=== PATIENT | female | born 1950 | race Caucasian/White ===

== ENCOUNTER → 2018-08-02 12:32 | Outpatient (CLI) | payer MEDICARE, OTHER, SELFPAY ==
--- NOTE | 2018-08-02 12:40 | RAD_ITS ---
STUDY: X-RAY CHEST REASON FOR EXAM: Female, 68 years old. Preop exam for knee surgery TECHNIQUE: PA and lateral views of the chest. COMPARISON: None. FINDINGS: The lungs are clear and expanded. There is no demonstrated pleural abnormality. There is borderline cardiomegaly. Normal mediastinum and solomon. Normal visualized pulmonary arteries. Normal visualized aortic arch and descending thoracic aorta. There is a dextroscoliosis of the thoracic spine. There are mild degenerative changes. Normal visualized ribs, clavicles, and shoulders. There is no demonstrated abnormality of the visualized soft tissue structures of the upper abdomen. RAD/Chest PA and Lateral IMPRESSION: Degenerative changes, as described above. No demonstrated acute cardiopulmonary process. Electronically Signed: Abdulkadir James MD at 11:40 EDT , Service support ,
--- NOTE | 2018-08-02 13:16 | EKG12_ITS ---
Test Reason : PRE OP Blood Pressure : / mmHG Vent. Rate : 076 BPM Atrial Rate : 076 BPM P-R Int : 198 ms QRS Dur : 078 ms QT Int : 388 ms P-R-T Axes : 074 012 020 degrees QTc Int : 436 ms Normal sinus rhythm Nonspecific ST abnormality Abnormal ECG Confirmed by FELIX WHITAKER, MARY ([id number]), editor map DEJUAN WRIGHT ([id number]) on 08/03/2018 2:07:02 PM Referred By: Tamica Dent Confirmed By:MARY WASHINGTON MD
== END ==
PROVIDERS: Family Provider Family Medicine; PCP Family Medicine; Visit Provider Physician Assistant
DX: Z01.818 Encounter for other preprocedural examination (principal)
CPT/HCPCS: 71046; 93005

== ENCOUNTER → 2018-09-30 10:34 | Outpatient (CLI) | payer MEDICARE, SELFPAY ==
[2018-09-30 10:56] LABS: Anion Gap 5 (5-15); Chloride 102 mmol/L (98-107); Potassium 3.5 mmol/L (3.5-5.1); Sodium Level 140 mmol/L (136-145)
== END ==
PROVIDERS: Family Provider Family Medicine; PCP Family Medicine; Visit Provider Family Medicine
DX: E87.6 Hypokalemia (principal)
CPT/HCPCS: 80051

== ENCOUNTER 2019-06-29 14:08 | Emergency (ER) | payer MEDICARE, OTHER, SELFPAY ==
[2019-06-29 14:10] VITALS: BP 114/75; PULSE 65; RESP 20; TEMP 36.3; O2SAT 96; BMI 39.6
--- NOTE | 2019-06-29 14:27 | ED.DCSUM_ITS ---
- ER Visit Summary Date of Service: 06/29/19 Chief Complaint: Low blood pressure History of Present Illness: The patient is a 69 F who presents with low blood pressure that began today. Patient checked her blood pressure at home and it was 97/71 with a pulse of 71. Patient states she has been having increasing fatigue and myalgias. Patient states that she gets muscle aches in her calves and arms. Patient admits to some pain and tingling in her right middle and ring fingers and the pain radiates to her right elbow. Patient denies any fevers but admits to subjective chills. Patient states she had an episode of nausea and vomiting. Patient states she has had problems with hypokalemia in the past but is not currently taking any potassium supplements. Physical Examination: Vital signs are stable. Patient is afebrile. Patient is in no acute distress. Oral mucosa is pink and moist. Neck is supple. Trachea is midline. There is no JVD. Heart was regular rate and rhythm. Lungs are clear and equal bilaterally. Abdomen is soft. Bowel sounds are normal. Cranial nerves II through XII are intact. Strength is 5/5 bilateral knee upper and lower extremities. There are no sensory deficits noted. Test Results: EKG showed normal sinus rhythm with a rate of 60. There are no acute ST or T wave changes. CBC was normal. Basic metabolic profile showed a potassium of 2.7. Emergency Department Course and Treatment: Patient was given IV fluids. Patient was given a dose of IV potassium here and a dose of oral potassium. Patient was given a prescription for a short-term course of oral potassium. Patient was instructed to follow-up with her primary care physician in 3 to 5 days. Patient understood and was agreeable with the plan. All questions were answered. Disposition: Discharge home Impression: 1. Hypokalemia This note was generated with [employer] software. It may contain incorrect words, spelling, and punctuation that were not noted in review of the chart prior to signing ED Disposition - Plan for ED Patient: Disposition: Home or Assisted Living Diagnosis: Hypokalemia Instructions: Hypokalemia Prescriptions: Potassium Chloride [K-Dur] 10 meq PO DAILY #5 tab Prescription Printed Referrals: Clint Huizar III, MD [Primary Care Provider] - 3-5 Days
--- NOTE | 2019-06-29 14:30 | EKG12_ITS ---
Test Reason : Blood Pressure : / mmHG Vent. Rate : 060 BPM Atrial Rate : 060 BPM P-R Int : 154 ms QRS Dur : 098 ms QT Int : 474 ms P-R-T Axes : -25 003 011 degrees QTc Int : 474 ms Normal sinus rhythm Low voltage QRS Borderline ECG Confirmed by AMBERLY WHITAKER, HEAVENLY ([id number]), story editor TAM SIDHU ([id number]) on 07/03/2019 1:03:34 PM Referred By: GOPI Confirmed By:MEGAN GAMING MD
--- NOTE | 2019-06-29 14:32 | ED.RN ---
STATES THAT SHE JUST FEELS REALLY TIRED.
[2019-06-29] MEDS: 0.9% Normal Saline 1,000 ML 1000 ML IV (14:49)
[2019-06-29 15:03] LABS: Absolute Neutrophil Count 4.2 X10^3/uL (2.0-7.7); Basophil# 0.03 X10^3/uL; Basophil% 0.5 % (0-1); Eosinophil# 0.39 X10^3/uL; Eosinophils% 6.3 % (0-5); Hemoglobin 14.1 g/dL (12.0-15.0); Lymphocyte % 19.3 % (19-41); Mean Corp Hgb Conc 33.6 g/dL (32-36); Mean Corpuscular Hgb 31.3 pg (27.0-32.0); Mean Corpuscular Volume 93.1 fL (81-99); Mean Platelet Vol. 10.3 fl (6.2-12.0); Monocyte# 0.43 X10^3/uL; Monocyte% 6.9 % (0-10); NRBC Flagged by Analyzer 0 % (0-5); Neutrophil # 4.16 X10^3/uL (2.7-7.7); Neutrophil % 66.8 % (47-70); Platelet Count 264 K/mm3 (150-450); RBC Distribution Width SD 44.4 fl (35.1-43.9); Red Blood Count 4.51 M/mm3 (4.2-5.4); White Blood Count 6.2 K/mm3 (4.4-11.0)
[2019-06-29 15:27] LABS: Anion Gap 7 (5-15); BUN 25 mg/dL (7-18); BUN/Creat Ratio 16.1 RATIO (10-20); Calcium,Total 8.9 mg/dL (8.5-10.1); Chloride 99 mmol/L (98-107); Creatinine, Serum 1.55 mg/dL (0.55-1.02); EST Glomerular Filtration Rate 35 mL/min (>60); Est Glom Filt Rate - Afr Amer 43 mL/min (>60); Estimated Creatinine Clearance 47.26 ml/min; Glucose 106 mg/dL (74-106); Potassium 2.7 mmol/L (3.5-5.1); Sodium Level 137 mmol/L (136-145)
--- NOTE | 2019-06-29 15:39 | ED.RN ---
PT WITH POTASSIUM 2.7. DR. NGUYỄN INFORMED.
[2019-06-29] MEDS: Potassium Chloride 10mEq/100mL 10 MEQ/100 ML IV.SOLN. 100 MEQ IV BOLUS (15:46)
[2019-06-29 16:30] VITALS: BP 137/92; PULSE 59; RESP 12; O2SAT 96
[2019-06-29 17:23] VITALS: BP 107/70; PULSE 55; RESP 16; O2SAT 97
== END 2019-06-29 17:24 | disposition home or self-care (01) ==
PROVIDERS: Emergency Provider Emergency Medicine; Family Provider Family Medicine; PCP Family Medicine
DX: E87.6 Hypokalemia (principal); I10 Essential (primary) hypertension; Z79.899 Other long term (current) drug therapy
CPT/HCPCS: 80048; 84484; 85025; 93005; 96361; 96365; 96366; 99284; J7030; J7050

== ENCOUNTER 2019-07-16 21:35 | Emergency (ER) | payer MEDICARE, OTHER, SELFPAY ==
[2019-07-16 21:36] VITALS: BP 172/83; PULSE 72; RESP 18; TEMP 36.8; O2SAT 95; BMI 42.6
--- NOTE | 2019-07-16 22:06 | ED.VIS.GEN ---
History of Present Illness Chief Complaint: Fall Informant: Patient Narrative: Patient presents with right knee injury. She stated she was walking in her living room and her knee hyperextended. She is having pain with movement of the knee. No previous injury. She does have polio that affects her right lower extremity. She stated that she is never had an injury however. She also stated she had a small bruise to her right proximal thumb. No home treatment. Severity is moderate with movement. No significant pain at rest. Denies any other injury. - Past Medical History (1) Benign essential HTN Status: Chronic Past Medical History - Allergies and Home Meds Allergies/Adverse Reactions: Allergies No Known Allergies Allergy (Verified 06/29/19 14:12) Primary Care Physician: Clint Huizar III, MD [Primary Care Provider] - Prior records reviewed: Yes Past Medical History: - - See problem list, polio Surgical History: appendectomy Lives: With Family Smoking Status: Never smoker Alcohol: None Drugs: None Review of Systems General: Denies: Chills, Fever, Sweats Eyes: Denies: Visual changes - bilaterally, Diplopia ENT: Denies: Rhinorrhea, Sore throat Cardiovascular: Denies: Chest pain, Palpitations Respiratory: Denies: Dyspnea, Cough, Dyspnea on exertion Gastrointestinal: Denies: Abdominal pain, Nausea, Vomiting, Diarrhea, Melena, Hematochezia Genitourinary: Denies: Dysuria, Hematuria, Frequency Musculoskeletal: Reports: Extremity Pain. Denies: Back pain Skin: Denies: Rash, Wounds Neurological: Denies: Headache, Weakness, Numbness Physical Exam Vital Signs/Narrative: Vital Signs Temp Pulse Resp BP Pulse Ox 07/16/19 21:36 98.2 F 72 18 172/83 H 95 General: Well nourished, Well developed, No Acute Distress Head: Normocephalic, Atraumatic Eyes: Perrl, EOMI ENT: Moist mucous membranes, No rhinorrhea Neck: Supple, Nontender Cardiovascular: Regular rate, Regular rhythm, No murmurs Respiratory: No distress, CTA bilaterally, Chest nontender Abdomen: Soft, Nontender, Nondistended, Normal bowel sounds Back: Nontender, Normal Inspection Extremities: No edema, Tenderness, - - Small bruise to the proximal right thumb with no tenderness. Tenderness to the palpation of the knee which appears straight and aligned. Patella is aligned. No swelling. No redness. Decreased range of motion secondary to pain but able to bend it up and bring her leg up and it.. Negative for: Nontender, Edema, Calf Tenderness Skin: Normal color, No rash Neurological: Alert, Oriented x3, Cranial nerves II-XII grossly intact, Normal Strength, Normal Sensation Psychological: Normal affect, Normal Mood Diagnostic/Tx/Re-eval - Medical Decision Making Given ice pack and injection of Toradol IM. X-ray of the right knee obtained. X-ray shows a small effusion without fracture. Patient given Gio wrap and crutches. She will use anti-inflammatories at home and follow-up as an outpatient with Dr. House or her family doctor. She understands she could have a ligament or meniscus injury and that continued pain would perhaps more an outpatient MRI. This was discussed with her. I do not feel she needs an emergent MRI. There is no vascular injury. She will follow-up as an outpatient ED Disposition - Plan for ED Patient: Disposition: Home or Assisted Living Diagnosis: Right knee injury Instructions: KNEE PAIN, Meniscus Injury (Possible) Referrals: Clint Huizar III, MD [Primary Care Provider] -
[2019-07-16] MEDS: Ketorolac 15 MG/ML Vial IM (22:11)
--- NOTE | 2019-07-16 22:20 | RAD_ITS ---
HISTORY: PAIN IN ENTIRE RIGHT KNEE. PAT LOST BALANCE AND FELL FORWARD, INJURED RIGHT KNEE. ADDITIONAL HISTORY: None provided. COMPARISON: None TECHNIQUE: Right knee 3 views Number of images including paperwork: 4 FINDINGS: BONES: No acute fracture. JOINTS: No subluxation. Small right knee joint effusion. Mild to moderate tricompartmental degenerative changes with joint space narrowing and small osteophytes. SOFT TISSUES: No distinct foreign body. RAD/Knee 4 or More Views IMPRESSION: 1. Degenerative changes without acute osseous abnormality. 2. Small right knee joint effusion. at 2236 Reported and signed by: Svetlana Nye MD Electronically Signed: Svetlana Nye MD at 22:36 EDT Tel , Service support ,
== END 2019-07-16 23:13 | disposition home or self-care (01) ==
PROVIDERS: Emergency Provider Emergency Medicine; Family Provider Family Medicine; PCP Family Medicine
DX: S89.91XA Unspecified injury of right lower leg, initial encounter (principal); I10 Essential (primary) hypertension; Z86.12 Personal history of poliomyelitis; Z79.899 Other long term (current) drug therapy; X50.1XXA Overexertion from prolonged static or awkward postures, initial encounter; Y93.01 Activity, walking, marching and hiking; Y92.008 Other place in unspecified non-institutional (private) residence as the place of occurrence of the external cause; Y99.8 Other external cause status
CPT/HCPCS: 73564; 96372; 99285

== ENCOUNTER → 2020-04-05 10:21 | Outpatient (CLI) | payer MEDICARE, OTHER, SELFPAY ==
--- NOTE | 2020-04-05 10:41 | EKG12_ITS ---
Test Reason : PREOP Blood Pressure : / mmHG Vent. Rate : 067 BPM Atrial Rate : 067 BPM P-R Int : 196 ms QRS Dur : 070 ms QT Int : 388 ms P-R-T Axes : 040 -07 014 degrees QTc Int : 409 ms Normal sinus rhythm with sinus arrhythmia Septal infarct , age undetermined Abnormal ECG Confirmed by WASHINGTON WHITAKER, PATIENCE ([id number]), fan mail editor DEJUAN WRIGHT ([id number]) on 04/09/2020 2:39:52 PM Referred By: Dylan Travis Confirmed By:PATIENCE DELAROSA MD
[2020-04-05 10:51] LABS: Hematocrit 44.8 % (37-47); Hemoglobin 14.5 g/dL (12.0-15.0); Mean Corp Hgb Conc 32.4 g/dL (32-36); Mean Corpuscular Hgb 30.3 pg (27.0-32.0); Mean Corpuscular Volume 93.5 fL (81-99); Mean Platelet Vol. 10.2 fl (6.2-12.0); Platelet Count 269 K/mm3 (150-450); RBC Distribution Width CV 12.8 % (11.6-14.6); RBC Distribution Width SD 43.8 fl (35.1-43.9); Red Blood Count 4.79 M/mm3 (4.2-5.4); White Blood Count 5.2 K/mm3 (4.4-11.0)
[2020-04-05 11:10] LABS: Anion Gap 2 (5-15); BUN 23 mg/dL (7-18); Calcium,Total 9.6 mg/dL (8.5-10.1); Chloride 107 mmol/L (98-107); Creatinine, Serum 0.85 mg/dL (0.55-1.02); EST Glomerular Filtration Rate 70 mL/min (>60); Est Glom Filt Rate - Afr Amer 85 mL/min (>60); Glucose 97 mg/dL (74-106); Potassium 3.9 mmol/L (3.5-5.1); Sodium Level 140 mmol/L (136-145)
== END ==
PROVIDERS: PCP Family Medicine; Referring Provider Physician Assistant; Visit Provider Physician Assistant
DX: Z01.810 Encounter for preprocedural cardiovascular examination (principal); Z01.818 Encounter for other preprocedural examination
CPT/HCPCS: 36415; 80048; 85027; 93005

== ENCOUNTER → 2021-02-11 10:33 | Outpatient (CLI) | payer MEDICARE, OTHER, SELFPAY ==
--- NOTE | 2021-02-11 10:37 | EKG12_ITS ---
Test Reason : PRE OP Blood Pressure : / mmHG Vent. Rate : 061 BPM Atrial Rate : 061 BPM P-R Int : 188 ms QRS Dur : 074 ms QT Int : 426 ms P-R-T Axes : 066 018 056 degrees QTc Int : 428 ms Normal sinus rhythm Normal ECG Confirmed by FELIX WHITAKER, MARY ([id number]), editor sound DARREL NORMAN ([id number]) on 02/12/2021 8:29:36 AM Referred By: Rashaad Lea Confirmed By:MARY WASHINGTON MD
--- NOTE | 2021-02-11 11:10 | RAD_ITS ---
STUDY: X-RAY CHEST REASON FOR EXAM: Female, 70 years old. PRE OP for lumber spine surgery. No chest complaints. TECHNIQUE: PA and lateral views of the chest. COMPARISON: Comparison is made with prior study dated 08/02/2018. FINDINGS: Hyperinflation. Stable mild increased linear markings at the lung bases suggest some mild bibasilar scarring. There is no demonstrated pleural abnormality. Normal size heart. Normal mediastinum and solomon. Normal visualized pulmonary arteries. Normal visualized aortic arch and descending thoracic aorta. There are degenerative changes of the visualized thoracic spine. Normal visualized ribs, clavicles, and shoulders. There is no demonstrated abnormality of the visualized soft tissue structures of the upper abdomen. RAD/Chest PA and Lateral IMPRESSION: Hyperinflation. Stable mild degree of linear scarring at the lung bases. Electronically Signed: Ap Gaitan MD at 12:44 EDT , Service support ,
[2021-02-11 11:18] LABS: Absolute Neutrophil Count 3.4 X10^3/uL (2.0-7.7); Basophil# 0.05 X10^3/uL; Basophil% 0.9 % (0-1); Eosinophil# 0.07 X10^3/uL; Eosinophils% 1.2 % (0-5); Hematocrit 44.5 % (37-47); Hemoglobin 14.4 g/dL (12.0-15.0); Lymphocyte % 31.1 % (19-41); Mean Corp Hgb Conc 32.4 g/dL (32-36); Mean Corpuscular Hgb 30.4 pg (27.0-32.0); Mean Corpuscular Volume 93.9 fL (81-99); Mean Platelet Vol. 10.5 fl (6.2-12.0); Monocyte# 0.49 X10^3/uL; Monocyte% 8.5 % (0-10); NRBC Flagged by Analyzer 0 % (0-5); Neutrophil # 3.35 X10^3/uL (2.7-7.7); Platelet Count 308 K/mm3 (150-450); RBC Distribution Width CV 13.4 % (11.6-14.6); RBC Distribution Width SD 46.3 fl (35.1-43.9); Red Blood Count 4.74 M/mm3 (4.2-5.4); White Blood Count 5.8 K/mm3 (4.4-11.0)
[2021-02-11 11:28] LABS: Prothrombin Time (Protime)PT. 12.5 SECONDS (11.7-14.9)
[2021-02-11 11:29] LABS: Partial Thromboplast Time 31.3 Seconds (24.1-36.2)
[2021-02-11 11:35] LABS: Hemoglobin A1c 5.2 % (3.8-5.6)
[2021-02-11 11:36] LABS: Anion Gap 4 (5-15); BUN 20 mg/dL (7-18); BUN/Creat Ratio 23.8 RATIO (10-20); Calcium,Total 9.3 mg/dL (8.5-10.1); Chloride 103 mmol/L (98-107); Creatinine, Serum 0.84 mg/dL (0.55-1.02); EST Glomerular Filtration Rate 71 mL/min (>60); Est Glom Filt Rate - Afr Amer 86 mL/min (>60); Glucose 91 mg/dL (74-106); Potassium 4.2 mmol/L (3.5-5.1); Sodium Level 139 mmol/L (136-145)
== END ==
PROVIDERS: PCP Family Medicine; Referring Provider Orthopaedic Surgery; Visit Provider Orthopaedic Surgery
DX: Z01.818 Encounter for other preprocedural examination (principal); Z11.52 Encounter for screening for COVID-19
CPT/HCPCS: 36415; 71046; 80048; 83036; 85025; 85610; 85730; 87635; 93005; C9803; U0002

== ENCOUNTER → 2021-08-18 09:06 | Outpatient (CLI) | payer MEDICARE, OTHER, SELFPAY ==
--- NOTE | 2021-08-18 10:57 | NEURO ---
NCS and/or EMG Patient Report Ordering Doctor: Trevor House DATE OF SERVICE: 08/18/21 Indication: Chronic right foot drop after a fall ~2 years ago that resulted in torsion of the ankle and extensive bruising/swelling on the lateral leg. Now with a floppy ankle as well as diminished sensation in the lateral leg, dorsolateral foot. History of remote poliomyelitis that only affected the right lower extremity. Findings: Nerve conduction studies were performed in the right lower extremity. Some comparisons were made to the left side. The right peroneal motor study recording the extensor digitorum brevis showed an absent response. The right peroneal motor study recording the tibialis anterior showed an absent response. The right tibial motor study recording the abductor hallucis brevis showed a normal amplitude, normal distal latency and normal conduction velocity. Right sural sensory response was absent. Right superficial peroneal sensory response was absent. Left sural sensory response was absent. Left superficial peroneal sensory response was absent. Left superficial radial sensory response was borderline amplitude, normal peak latency and normal conduction velocity. Needle EMG of the lower extremity muscles was performed. Active denervation was present in the tibialis anterior and extensor digitorum brevis muscles. No volitional motor units were seen in the tibialis anterior or peroneus longus. Motor units were relatively normal morphology, but markedly reduced recruitment in the medial gastrocnemius. Motor units in the extensor hallucis longus muscle were large amplitude, long duration and polyphasic with markedly reduced recruitment. Motor units were large amplitude, long duration with reduced recruitment in the biceps femoris (short head). Impression: This is a markedly abnormal and complex study. There is electrophysiologic evidence of chronic reinnervation in all examined muscles of the right lower extremity, potentially the long-term sequela of the patient's poliomyelitis. There is evidence of a superimposed, non-localizing, peroneal neuropathy (based on the presence of active denervation confined to that peripheral nerve territory and the asymmetric of the peroneal and tibial motor responses). Nerve continuity to the tibialis anterior could not be established electrically. Further evaluation with ultrasound of the peroneal nerve could be considered for localization and characterization of this finding. Finally, the absent sensory responses in the bilateral lower extremities in conjunction with the borderline radial sensory response are suggestive of an underlying peripheral polyneuropathy. Clinical correlation is recommended. Delfino Reese D.O. Multi Select Codes Neurology Neurology Interp Codes: 25525-20 Musc test done w/n test comp (interp) and 91320-80 Nrv cndj test 7-8 studies (interp)
== END ==
PROVIDERS: PCP Family Medicine; Referring Provider Podiatrist Foot & Ankle Surgery; Visit Provider Podiatrist Foot & Ankle Surgery
DX: M21.371 Foot drop, right foot (principal)
CPT/HCPCS: 95886; 95910

== ENCOUNTER 2022-01-20 12:57 | Outpatient (CLI) | payer MEDICARE, OTHER, SELFPAY ==
--- NOTE | 2022-01-20 13:06 | RAD_ITS ---
: 1950 CLINICAL INDICATION: LEG LENGTH TECHNIQUE: X-ray bone length studies scanograms. This report was created using [employer] report generation technology. COMPARISON: None. FINDINGS: Images were obtained with the patient standing. The superior aspect of the left hip approximately 1 cm higher superior aspect of the right hip. 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 The medial femoral condyle of the left knee prosthesis is approximately 1 cm higher than the medial femoral condyle of the right knee. Left tibiotalar joint is approximately half a millimeter higher than the right tibiotalar joint. RAD/Bone Length IMPRESSION: 1. Left hip approximately 1 cm higher than the right hip. The distal left femur is also approximately 1 cm higher than the distal right femur. 2. The left tibiotalar joint space is 0.5 cm higher than the right tibiotalar joint space. 3. Total left knee prosthesis. at 0300 Reported and signed by: Yony Fisher MD Electronically Signed: Yony Fisher MD at 2:59 EST ,
== END 2022-01-20 23:59 | disposition home or self-care (01) ==
LOC: MTRAD 12:59
PROVIDERS: PCP Nurse Practitioner Family; Referring Provider Podiatrist; Visit Provider Podiatrist
DX: M21.70 Unequal limb length (acquired), unspecified site (principal)
CPT/HCPCS: 77073

== ENCOUNTER 2022-01-27 11:00 | Outpatient (CLI) | payer MEDICARE, OTHER, SELFPAY ==
--- NOTE | 2022-01-27 11:30 | MRI_ITS ---
STUDY: MRI RIGHT ANKLE WITHOUT CONTRAST REASON FOR EXAM: Dropped foot, decreased range of motion and instability after right ankle injury 1 year ago, post polio syndrome, attention anterior tibialis tendon. TECHNIQUE: Standardized fat and water weighted pulse sequences were obtained in all 3 orthogonal planes. COMPARISON: None. FINDINGS: Normal subcutis adipose space. There is a very small volume of fluid in the retromalleolar posterior tibialis tendon sheath (T2 axial images 8, 9). The posterior tibialis tendon is morphologically normal. Normal flexor digitorum longus tendon. Normal flexor hallucis longus tendon. Normal peroneus longus and brevis tendons. The tibialis anterior tendon appears hypoplastic particularly distal to the level of the tibiotalar articulation (T2 axial images 13-22) without focal discontinuity of the tendon or tenosynovitis. Normal extensor hallucis longus tendon. Normal extensor digitorum longus tendons. There is tendinosis with fusiform thickening of the Achilles tendon (T1 sagittal images 13, 14) and atrophy with fat replacement of the distal soleus muscle (T1 sagittal image 13). Normal plantar fascia. Normal plantar calcaneal tubercles. Normal intrinsic muscles of the rearfoot. Normal distal tibiofibular syndesmotic ligamentous complex. There is a chronic partial tear with attenuation of the anterior talofibular ligament (T2 axial image 14). The calcaneofibular and posterior talofibular ligaments appear intact. Normal subtalar ligaments and sinus tarsi. Normal deltoid ligamentous complexes. Normal plantar calcaneonavicular (spring) ligament. There is mild tibiotalar arthrosis with small dorsal osteophytes of the anterior tibia and mild chondral thinning at the anterior aspect of the articulation (T1 sagittal images 14, 15) with very mild subchondral cystic change of the distal tibia. Normal talar dome. Normal subtalar articulations. There is a small os trigonum. Normal talonavicular articulation. There is subchondral cystic change of the calcaneocuboid articulation (inversion recovery sagittal image 8). Normal navicular-cuneiform articulations. 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 Chronic partial tear of the anterior talofibular ligament. Achilles tendinosis and atrophy of the distal soleus muscle. Mild tibiotalar arthrosis. Very mild posterior tibialis tenosynovitis. Electronically Signed: Wiley Shaffer MD at 13:26 EDT ,
== END 2022-01-27 23:59 | disposition home or self-care (01) ==
PROVIDERS: PCP Nurse Practitioner Family; Referring Provider Podiatrist; Visit Provider Podiatrist
DX: S86.211A Strain of muscle(s) and tendon(s) of anterior muscle group at lower leg level, right leg, initial encounter (principal)
CPT/HCPCS: 73721

== ENCOUNTER → 2022-05-01 | Outpatient (CLI) | payer MEDICARE, OTHER, SELFPAY ==
[2022-05-01 10:02] LABS: Hematocrit 41.8 % (37-47); Hemoglobin 13.5 g/dL (12.0-15.0); Mean Corp Hgb Conc 32.3 g/dL (32-36); Mean Corpuscular Hgb 30.5 pg (27.0-32.0); Mean Corpuscular Volume 94.6 fL (81-99); Mean Platelet Vol. 10.1 fl (6.2-12.0); Platelet Count 259 K/mm3 (150-450); RBC Distribution Width CV 13.9 % (11.6-14.6); RBC Distribution Width SD 48.8 fl (35.1-43.9); Red Blood Count 4.42 M/mm3 (4.2-5.4); White Blood Count 4.8 K/mm3 (4.4-11.0)
[2022-05-01 10:21] LABS: Vitamin B12 384 pg/mL (211-911)
[2022-05-01 10:43] LABS: ALB/GLOB Ratio 0.9 RATIO (0.9-2.4); AST(SGOT) 21 U/L (15-37); Alanine Aminotransfer ALT/SGPT 31 U/L (13-56); Albumin, Serum 3.6 g/dL (3.2-5.0); Alkaline Phosphatase 95 U/L (45-117); Anion Gap 6 (5-15); BUN 22 mg/dL (7-18); Calcium,Total 8.8 mg/dL (8.5-10.1); Chloride 106 mmol/L (98-107); Creatinine, Serum 0.79 mg/dL (0.55-1.02); EST Glomerular Filtration Rate 77 mL/min (>60); Est Glom Filt Rate - Afr Amer 93 mL/min (>60); Globulin 3.8 g/dL (2.2-4.2); Glucose 99 mg/dL (74-106); Potassium 4.1 mmol/L (3.5-5.1); Protein, Total 7.4 g/dL (6.4-8.2); Sodium Level 139 mmol/L (136-145); Thyroid Stim Hormone (TSH) 2.82 uIU/mL (0.358-3.74)
[2022-05-07 13:07] LABS: Free Kappa Light Chains 25.2 mg/L (3.3-19.4); Free Lambda Light Chains 20.4 mg/L (5.7-26.3)
[2022-05-07 18:29] LABS: Vitamin B1, Thiamine 159.3 nmol/L (66.5-200.0)
== END | disposition home or self-care (01) ==
LOC: MTLAB 08:40
PROVIDERS: PCP Nurse Practitioner Family; Referring Provider Psychiatry & Neurology Neurology; Visit Provider Psychiatry & Neurology Neurology
DX: I10 Essential (primary) hypertension (principal); G62.9 Polyneuropathy, unspecified
CPT/HCPCS: 36415; 80053; 82607; 82746; 83883; 84425; 84443; 85027

== ENCOUNTER → 2022-08-25 | Outpatient (CLI) | payer MEDICARE, OTHER, SELFPAY ==
[2022-08-27 13:08] LABS: Albumin 3.7 g/dL (2.9-4.4); Alpha-1-Globulins 0.2 g/dL (0.0-0.4); Alpha-2-Globulins 0.9 g/dL (0.4-1.0); Gamma Globulin 1.4 g/dL (0.4-1.8); Immunoglobulin A 339 mg/dL (64-422); Immunoglobulin G 1087 mg/dL (586-1602); Immunoglobulin M 217 mg/dL (26-217); PROEL- TOTAL PROTEIN 7.4 g/dL (6.0-8.5)
[2022-08-27 16:40] LABS: IMMUNOFIXATION RESULT,S Comment: (.)
== END | disposition home or self-care (01) ==
LOC: LAB 09:32
PROVIDERS: Referring Provider Psychiatry & Neurology Neurology; Visit Provider Psychiatry & Neurology Neurology
DX: G62.9 Polyneuropathy, unspecified (principal)
CPT/HCPCS: 36415; 82784; 84165; 86334; 86335

== ENCOUNTER → 2022-09-11 | Outpatient (CLI) | payer MEDICARE, OTHER, SELFPAY ==
--- NOTE | 2022-09-11 16:03 | MRI_ITS ---
STUDY: MRI RIGHT ANKLE WITHOUT CONTRAST REASON FOR EXAM: Female, 72 years old. ANTERIOR TIBAL TENDON RUPTURE TECHNIQUE: Standardized fat and water weighted pulse sequences were obtained in all 3 orthogonal planes. COMPARISON: None. FINDINGS: Normal subcutis adipose space. Normal posterior tibialis tendon. Normal flexor digitorum longus tendon. Normal flexor hallucis longus tendon. Normal peroneus longus and brevis tendons. Normal tibialis anterior tendon. Normal extensor hallucis longus tendon. Normal extensor digitorum longus tendons. Thickening of the distal Achilles tendon suggestive of noninsertional Achilles tendinosis. No hyperintensity to suggest the tear. Normal plantar fascia. Normal plantar calcaneal tubercles. Normal intrinsic muscles of the rearfoot. Normal distal tibiofibular syndesmotic ligamentous complex. Normal lateral ligamentous complex. Normal subtalar ligaments and sinus tarsi. Normal deltoid ligamentous complexes. Normal plantar calcaneonavicular (spring) ligament. Moderate tibiotalar joint arthrosis with subchondral edema of the distal tibia. Normal talar dome. Normal subtalar articulations. Normal talonavicular articulation. Normal calcaneocuboid articulation. Normal navicular-cuneiform articulations. Suspect nondisplaced oblique fracture the distal fibula the level tibial plafond. MRI/Lower Ext Joint Only (Routine) IMPRESSION: 1. Suspect nondisplaced oblique fracture the distal fibula the tibial plafond. 2. Moderate tibiotalar joint arthrosis per 3. Noninsertional Achilles tendinosis. 4. No anterior tibial tendon rupture. Electronically Signed: Clinton Whyte MD at 18:30 EDT ,
== END | disposition home or self-care (01) ==
LOC: MRI 15:48
PROVIDERS: PCP Nurse Practitioner Family; Visit Provider Podiatrist
DX: S96.911A Strain of unspecified muscle and tendon at ankle and foot level, right foot, initial encounter (principal)
CPT/HCPCS: 73721

== ENCOUNTER → 2022-12-22 | Outpatient (CLI) | payer MEDICARE, OTHER, SELFPAY ==
--- NOTE | 2022-12-22 18:15 | MRI_ITS ---
EXAM: MR CERVICAL SPINE WITHOUT INTRAVENOUS CONTRAST CLINICAL INDICATION: CERVICAL DISC DISPLACEMENT, neck and shoulder pain TECHNIQUE: Multiplanar and multisequence MR images of the cervical spine without intravenous contrast were performed. This report was created using [employer] technology. COMPARISON: None. FINDINGS: VERTEBRAE: Unremarkable. Normal vertebral bodies and posterior elements. Normal alignment. Normal craniocervical junction and cervicothoracic junction. No spondylolisthesis. There is preservation of the normal cervical lordosis. SPINAL CORD: Unremarkable in signal and morphology. SOFT TISSUES: Unremarkable. No prevertebral soft tissue swelling. LYMPH NODES: Unremarkable. There is no cervical adenopathy. DISCS/SPINAL CANAL/NEURAL FORAMINA: No demonstrated fracture. C2-3: Normal disc height and morphology. Normal central canal. Foramina are patent. C3-4: Normal disc height and morphology. Normal central canal. Foramina are patent. C4-5: Normal disc height and morphology. Normal central canal. Foramina are patent. C5-6: Normal disc height and morphology. Normal central canal. Foramina are patent. C6-7: Normal disc height and morphology. Normal central canal. Foramina are patent. C7-T1: Normal disc height and morphology. Normal central canal. Foramina are patent. MRI/Spine Cervical (Routine) IMPRESSION: Unremarkable MRI of the cervical spine. Electronically Signed: Melania Bliss MD at 21:34 EST Reading Location ID and State: [id number] / Tel , Service support ,
== END | disposition home or self-care (01) ==
PROVIDERS: Visit Provider Orthopaedic Surgery
DX: M48.02 Spinal stenosis, cervical region (principal); M47.22 Other spondylosis with radiculopathy, cervical region; M50.30 Other cervical disc degeneration, unspecified cervical region
CPT/HCPCS: 72141

== ENCOUNTER 2022-12-25 11:13 | Emergency (ER) | payer MEDICARE, OTHER, SELFPAY ==
[2022-12-25 11:14] VITALS: BP 192/114; PULSE 70; RESP 16; TEMP 36.2; O2SAT 92; BMI 40.7
--- NOTE | 2022-12-25 11:24 | EDS_ITS ---
HPI History of Present Illness Chief Complaint: Nosebleed Informant: patient Narrative Narrative: Recurrent left-sided epistaxis 10 AM this morning was persistent upon arrival. Yesterday had transient symptoms on the same side. States that he is on in the home however is not significant hot along with him having humidifier. Patient does not take any anticoagulants. Patient was recently started on losartan by her PCP she for which she takes at night. Currently bleeding is controlled. Prior to that no issues of nosebleeds. Denies any digital manipulation. [facility] Medical History Anemia Cataracts, bilateral GERD (gastroesophageal reflux disease) Hearing problem Herniated disc Hiatal hernia Hypertension Neuropathy Polio Seasonal allergies Home Medications Escitalopram Oxalate 20 mg PO DAILY 06/29/19 [History Last Taken Unknown] amlodipine 5 mg tablet 10 mg PO DAILY 04/22/22 [History Last Taken Unknown] Allergy/AdvReac Type Severity Reaction Status Date / Time No Known Allergies Allergy Verified 12/25/22 11:36 Family History Sister Alcoholism Mother Heart disease Father Heart disease Surgical History History of appendectomy History of back surgery (~2019) History of total knee replacement (~2018) Social History Smoking Status: Never smoker second hand exposure: No alcohol intake: never substance use type: does not use what type of physical activity do you participate in: none patricia/pentecostal: [employer] seatbelt use: always ROS ROS ED Constitutional Constitutional ED: Denies chills, fever(s) or sweats Eyes Eyes: Denies change in vision ENT ENT ED: Reports other Details: Left-sided nosebleed ; Denies dysphagia or sore throat Cardiovascular Cardiovascular: Denies chest pain, leg edema, palpitations or racing heartbeat Respiratory/Chest Respiratory/Chest: Denies cough, dyspnea or dyspnea on exertion Gastrointestinal Gastrointestinal: Denies abdominal pain, diarrhea, nausea or vomiting Genitourinary Genitourinary ED: Denies dysuria, hematuria or urinary frequency Musculoskeletal Musculoskeletal: Denies back pain, extremity pain or neck pain Integumentary Denies rash or wounds Neurologic Neurologic: Denies headache(s), paresthesias or weakness EXAM Physical Exam Const Vital Signs: 12/25/22 11:14 12/25/22 11:45 12/25/22 13:33 Temperature 97.1 F L Temperature Source Temporal Pulse Rate 70 61 56 L Respiratory Rate 16 18 15 Blood Pressure 192/114 H 191/84 H 186/99 H Blood Pressure Mean 140 119 Pulse Ox 92 95 97 Oxygen Delivery Method Room Air Room Air Positive well nourished and well developed General Appearance ED: well developed and NAD HEENT Reports moist mucous membranes HEENT Narrative: Nasal clips removed, cannot identify any active bleeding or clots or ulcer ideations right or left side. There was a very small nasal polyp on the septum nonbleeding. No posterior pharyngeal dried blood or active bleeding. normocephalic and atraumatic Eyes PERRL, EOMs intact bilaterally and conjunctivae normal General Eye ED: Yes normal appearance of both eyes Neck no lymphadenopathy and supple General: Negative for tenderness Chest Wall Chest: Negative for tenderness Resp normal respiratory effort and normal air movement Effort and Inspection: symmetric chest movement; Negative for respiratory distress Cardio regular rate, regular rhythm and no murmurs Peripheral Pulses: pulses 2+ throughout GI normal to inspection, nondistended, normoactive bowel sounds and non-tender Palpation: Negative for guarding or rebound tenderness present Back/Spine no CVA tenderness and no thoracic nor lumbar tenderness Extremity normal to inspection General Extremety ED: Negative for edema or tenderness General Extremity: Negative for edema Neuro oriented x3 and no sensory deficits noted Sensorium / Orientation: awake and alert Skin no rashes or lesions noted and no wounds MDM MDM MDM Narrative Medical decision making narrative: Interventions / MDM: Differential diagnosis: Left-sided epistaxis, nasal polyp, elevated blood pressure Diagnosis considered but do not suspect: N/A My EKG interpretation: N/A Imaging independently reviewed and interpreted by myself: N/A External documents reviewed: N/A Test considered but not ordered:N/A ED course: Patient with no active bleeding. Nasal polyp noted this is the likely source. She was monitored I placed Afrin on cotton placed on her septum to help with. Additional hemostasis. Cotton was removed monitor no recurrence of symptoms. Blood pressure was elevated, she was recently started on losartan from amlodipine. Patient is to follow-up on Wednesday for blood pressure. She will keep logs of blood pressure discussed with her PCP. She is given follow-up with ENT due to epistaxis with a nasal polyp. Return precaution discussed. All questions were answered. Re-evaluation: stable and improved Disposition discussed with patient/family/significant other: 139 patient and significant other Case discussed with consulting clinician: N/A Discharge Plan Triage Chief Complaint: Nosebleed ED Provider: Donal Neumann Dx/Rx/DC Orders Clinical Impression: Left-sided epistaxis, Left nasal polyps, Elevated blood pressure reading in office with diagnosis of hypertension Instructions: ED Epistaxis (Adult) Prescriptions: No Action Escitalopram Oxalate 20 MG tablet 20 mg PO DAILY amlodipine 5 mg tablet 10 mg PO DAILY Primary Care Provider: Avtar Chowdary Referrals: Delfino Wray MD [Med Staff - Active Staff] - 1 Week Avtar Chowdary [Primary Care Provider] - Keep Maribel appointment Activity Restrictions/Additional Instructions: Bleeding controlled, showed small nasal polyp on septum. Follow-up with Dr. Wray. elevated blood pressure take your losartan continue to monitor your blood pressure keep your follow-up with your PCP for medication adjustments. Disposition Disposition: Home, Self Care Discharge Date/Time: 12/25/22 13:37
[2022-12-25 11:45] VITALS: BP 191/84; PULSE 61; RESP 18; O2SAT 95
[2022-12-25] MEDS: Oxymetazoline 0.05% 1 SPRAY SPRAY.BTL NASAL (12:12)
[2022-12-25 13:33] VITALS: BP 186/99; PULSE 56; RESP 15; O2SAT 97
== END 2022-12-25 13:37 | disposition home or self-care (01) ==
PROVIDERS: Emergency Provider Emergency Medicine; Visit Provider Emergency Medicine
DX: R04.0 Epistaxis (principal); J33.9 Nasal polyp, unspecified; I10 Essential (primary) hypertension
CPT/HCPCS: 99283

== ENCOUNTER → 2023-12-29 | Outpatient (CLI) | payer MEDICARE, OTHER, SELFPAY ==
--- OUTSIDE RECORDS SUMMARY | 2023-12-29 12:08 | XMS RPT_ITS | CCD ---
Author Name Unknown Address [address] [place] [address] Organization [facility] Care Team Providers Care Jukebox Routeman Name Role Phone YANG WRIGHT DR Unavailable Unavailable YANG WRIGHT DR Unavailable Unavailable YANG WRIGHT DR Unavailable Unavailable CECLINT LUZMARIA III Unavailable Unavailable PROVIDER, UNKNOWN Unavailable Unavailable YANG WRIGHT DR Unavailable Unavailable YANG WRIGHT DR Unavailable Unavailable YANG WRIGHT DR Unavailable Unavailable EMMA, LUZMARIA III Unavailable Unavailable PROVIDER, UNKNOWN Unavailable Unavailable YANG WRIGHT DR Unavailable Unavailable YANG WRIGHT DR Unavailable Unavailable YANG WRIGHT DR Unavailable Unavailable CECLINT, LUZMARIA III Unavailable Unavailable PROVIDER, UNKNOWN Unavailable Unavailable Emma CASIANO MD, Luzmaria A Primary Care Provider Suly vailable Emma CASIANO MD, Frank A Primary Care Provider Suly vailaAvtar Tijerina MD Primary Care Provider [phone] AVTAR CHOWDARY Primary Care Unavailable MIRTHA SOUZA Admitting Unavailable ALAN JAMES Referring Unavailable JAMEE CARMONA Consulting Unavailable SEB NOE Attending Unavailable AVTAR CHOWDARY Primary Care Unavailable ALAN JAMES Attending Unavailable AVTAR CHOWDARY Primary Care Unavailable AVTAR CHODWARY Attending Unavailable AVTAR CHOWDARY Primary Care Unavailable AVTAR CHOWDARY Primary Care Unavailable AVTAR CHOWDARY Attending Unavailable AVTAR CHOWDARY Primary Care Unavailable AVTAR CHOWDARY Referring Unavailable AVTAR CHOWDARY Primary Care Unavailable AVTAR CHOWDARY Referring Unavailable HALIMA IRIZARRY Referring Unavailable AVTAR CHOWDARY Primary Care Unavailable HALIMA IRIZARRY Referring Unavailable AVTAR CHOWDARY Primary Care Unavailable AVTAR CHOWDARY Primary Care Unavailable AVTAR CHOWDARY Attending Unavailable AVTAR CHOWDARY Primary Care Unavailable AVTAR CHOWDARY Referring Unavailable AVTAR CHOWDARY Primary Care Unavailable AVTAR CHOWDARY Referring Unavailable AVTAR CHOWDARY Primary Care Unavailable AVTAR CHOWDARY Primary Care Unavailable AVTAR CHOWDARY Attending Unavailable AVTAR CHOWDARY Primary Care Unavailable AVTAR CHOWDARY Primary Care Unavailable MEKA GROVE Attending Unavailable AVTAR CHOWDARY Primary Care Unavailable AVTAR CHOWDARY Referring Unavailable AVTAR CHOWDARY Primary Care Unavailable AVTAR CHOWDARY Referring Unavailable Allergies Allergy Classification Reported Allergen(s) Allergy Type Date of Onset Reaction(s) Facility (20 sources) Lisinopril; Translations: [LISINOPRIL] Drug Allergy 0 [facility] (20 sources) Potassium Chloride; Translations: [POTASSIUM CHLORIDE] Drug Allergy 9 Rash [facility] Work Phone: (20 sources) Simvastatin; Translations: [SIMVASTATIN] Drug Allergy 0 [facility] (3 sources) Thiazides; Translations: [THIAZIDES] Drug Intolerance 7 GI Upset [facility] (20 sources) ENVIRONMENTAL [Other] Propensity to adverse reactions 5 [facility] Work Phone: (20 sources) Thiazides Drug Intolerance 7 GI Upset [facility] (1 source) OTHER; Translations: [OTHER] Propensity to adverse reactions (disorder) 5 [facility] Medications Current Medications Medication Drug Class(es) Dates Sig (Normalized) Sig (Original) apixaban 5 mg oral tablet (1 source) Factor Xa Inhibitor Start: 11-09-2023 End: 01-08-2024 take 1 tablet by mouth twice daily apixaban (ELIQUIS) 5 mg tab(s) Take 1 tablet by mouth two times a day. 60 tablet 1 11/09/2023 01/08/2024 Active Completed/Discontinued Medications Medication Drug Class(es) Dates Sig (Normalized) Sig (Original) amLODIPine 5 mg oral tablet (19 sources) Dihydropyridine Calcium Channel Shelly Start: 01-25-2023 End: 02-26-2023 take 1 tablet by mouth once daily amLODIPine (NORVASC) 5 mg tablet Indications: Primary hypertension Take 1 tablet by mouth once daily. 90 tablet 1 02/26/2023 Active Problems Active Problems Problem Classification Problem Date Documented Da te Episodic/Chronic Anxiety disorders (20 sources) Mixed anxiety and depressive disorder; Translations: [Anxiety disorder, unspecified] Onset: 02-25-2018 02-25-2018 Chronic Cardiac dysrhythmias (2 sources) Atrial fibrillation; Translations: [Unspecified atrial fibrillation] Onset: 11-09-2023 11-09-2023 Chronic Congestive heart failure; nonhypertensive (5 sources) Acute on chronic combined systolic (congestive) and diastolic (congestive) heart failure; Translations: [Heart failure, unspecified] Onset: 11-07-2023 12-16-2023 Chronic Disorders of lipid metabolism (20 sources) Hyperlipidemia; Translations: [Hyperlipidemia, unspecified] Onset: 2010 05-28-2015 Chronic Essential hypertension (20 sources) Benign essential hypertension; Translations: [Essential (primary) hypertension] Onset: 07-15-2005 07-20-2019 Chronic Immunizations and screening for infectious disease (5 sources) Patient encounter status; Translations: [Encounter for immunization] Episodic Other bone disease and musculoskeletal deformities (2 sources) Large clavicle; Translations: [Hypertrophy of bone, unspecified shoulder] 05-27-2023 Episodic Other bone disease and musculoskeletal deformities (2 sources) Clavicle pain; Translations: [Other specified disorders of bone, shoulder] 05-27-2023 Episodic Other [employer] SUPER[employer]OR infection and poliomyelitis (20 sources) Post poliomyelitis syndrome; 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] Onset: 02-12-2010 02-12-2010 Chronic Other diseases of kidney and ureters (1 source) Disorder of kidney and ureter, unspecified; Translations: [Renal insufficiency] Onset: 12-15-2023 Episodic Other lower respiratory disease (1 source) Wheezing; Translations: [Wheezing] Onset: 11-06-2023 Episodic Other nervous system disorders (20 sources) Neuropathy of lower limb; Translations: [Unspecified mononeuropathy of unspecified lower limb] Onset: 09-07-2022 Chronic Other non-traumatic joint disorders (1 source) Disorder of joint of shoulder region; Translations: [Other specified joint disorders, right shoulder] Episodic Other non-traumatic joint disorders (1 source) Chronic pain of right upper limb; Translations: [Pain in right shoulder] Episodic Other nutritional; endocrine; and metabolic disorders (20 sources) Body mass index 40+ - severely obese; Translations: [Morbid (severe) obesity due to excess calories] Onset: 05-28-2015 01-07-2021 Chronic Other nutritional; endocrine; and metabolic disorders (1 source) Hypermagnesemia; Translations: [Hypermagnesemia] Onset: 12-15-2023 Chronic Other nutritional; endocrine; and metabolic disorders (1 source) Abnormal weight gain; Translations: [Weight gain] Onset: 11-06-2023 Episodic Other screening for suspected conditions (not mental disorders or infectious disease) (3 sources) Radiology result abnormal; Translations: [Abnormal findings on diagnostic imaging of other specified body structures] Onset: 06-10-2023 05-27-2023 Chronic Other screening for suspected conditions (not mental disorders or infectious disease) (3 sources) Raised TSH level; Translations: [Other specified abnormal findings of blood chemistry] Onset: 03-08-2023 11-09-2023 Episodic Past or Other Problems Problem Classification Problem Date Documented Date Episodic/Chronic Acquired foot deformities (19 sources) Foot-drop; Translations: [Foot drop, unspecified foot] Onset: 09-07-2022 11-27-2022 Episodic Fluid and electrolyte disorders (20 sources) Hypokalemia; Translations: [Hypokalemia] Onset: 11-27-2022 Episodic Malaise and fatigue (2 sources) Fatigue; Translations: [Other fatigue] Onset: 05-27-2023 05-27-2023 Episodic Other bone disease and musculoskeletal deformities (1 source) Hypertrophy of bone, unspecified shoulder; Translations: [Clavicle enlargement] Onset: 06-10-2023 Episodic Other bone disease and musculoskeletal deformities (1 source) Other specified disorders of bone, shoulder; Translations: [Clavicle pain] Onset: 06-10-2023 Episodic Other [employer]PER[employer] infection and poliomyelitis (20 sources) H/O: poliomyelitis; Translations: [Personal history of poliomyelitis] Onset: 09-07-2022 Episodic Other non-traumatic joint disorders (4 sources) Pain in right knee; Translations: [Pain in joint, lower leg] Onset: 08-17-2019 08-17-2019 Episodic Other non-traumatic joint disorders (1 source) Other specified joint disorders, right shoulder; Translations: [Enlargement of sternoclavicular joint, right] Onset: 02-22-2023 Episodic Results Test Name Value Interpretation Reference Range Facil ity Vital Signs Date Time Vital Sign Value Performing Clinician Faci lity 05-27-2023 11:46-0400 Diastolic blood pressure 82 mm[Hg] Avtar Chowdary MD Work Phone: [facility] 05-27-2023 11:46-0400 Systolic blood pressure 126 mm[Hg] Avtar Chowdary MD Work Phone: [facility] 05-27-2023 10:32-0400 Body height 149.9 cm Avtar Chowdary MD Work Phone: [facility] 05-27-2023 10:32-0400 Body weight 93.98 kg Avtar Chowdary MD Work Phone: [facility] 05-27-2023 10:32-0400 Heart rate 75 /min Avtar Chowdary MD Work Phone: [facility] 05-27-2023 10:32-0400 SaO2% (BldA) [Mass fraction] 97 % Avtar Chowdary MD Work Phone: [facility] 02-26-2023 13:30-0400 Diastolic blood pressure 78 mm[Hg] Meka Haagen HERBARIUM WORKER.PMP Work Phone: [facility] 02-26-2023 13:30-0400 Heart rate 68 /min Meka Haagen HERBARIUM WORKER.PMP Work Phone: [facility] 02-26-2023 13:30-0400 Respiratory rate 18 /min Meka Haagen HERBARIUM WORKER.PMP Work Phone: [facility] 02-26-2023 13:30-0400 SaO2% (BldA) [Mass fraction] 97 % Meka Haagen HERBARIUM WORKER.PMP Work Phone: [facility] 02-26-2023 13:30-0400 Systolic blood pressure 124 mm[Hg] Meka Haagen HERBARIUM WORKER.PMP Work Phone: [facility] 02-22-2023 11:47-0400 Body height 149.9 cm Avtar Chowdary MD Work Phone: [facility] 02-22-2023 11:47-0400 Body weight 92.17 kg Avtar Chowdary MD Work Phone: [facility] 02-22-2023 11:47-0400 Diastolic blood pressure 81 mm[Hg] Avtar Chowdary MD Work Phone: [facility] 02-22-2023 11:47-0400 Heart rate 76 /min Avtar Chowdary MD Work Phone: [facility] 02-22-2023 11:47-0400 Systolic blood pressure 128 mm[Hg] Avtar Chowdary MD Work Phone: [facility] 12-28-2022 09:37-0500 Diastolic blood pressure 91 mm[Hg] Mi Nurse Work Phone: [facility] 12-28-2022 09:37-0500 Heart rate 63 /min Mi Nurse Work Phone: [facility] 12-28-2022 09:37-0500 Systolic blood pressure 161 mm[Hg] Mi Nurse Work Phone: [facility] 11-27-2022 13:00-0500 Body height 149.9 cm Avtar Chowdary MD Work Phone: [facility] 11-27-2022 13:00-0500 Body weight 91.17 kg Avtar Chowdary MD Work Phone: [facility] 11-27-2022 13:00-0500 Diastolic blood pressure 70 mm[Hg] Avtar Chowdary MD Work Phone: [facility] 11-27-2022 13:00-0500 Heart rate 66 /min Avtar Chowdary MD Work Phone: [facility] 11-27-2022 13:00-0500 SaO2% (BldA) [Mass fraction] 99 % Avtar Chowdary MD Work Phone: [facility] 11-27-2022 13:00-0500 Systolic blood pressure 146 mm[Hg] Avtar Chowdary MD Work Phone: [facility] Encounters Encounter Date Encounter Type Care Provider Facility Start: 12-20-2023 End: 12-20-2023 ambulatory AVTAR CHOWDARY Facility:[facility] Start: 12-16-2023 Telephone encounter Avtar Chowdary MD Work Phone: [facility] Procedures Date Procedure Procedure Detail Performing Clinician Start: 06-10-2023 Ct upper extremity w/contrast material Avtar Chowdary MD Work Phone: Start: 03-08-2023 End: 03-08-2023 Mammography Avtar Chowdary MD Work Phone: Start: 12-02-2022 Lipid 1996 panel - S dinora or Plasma Moriah Reyes MA Start: 11-27-2022 INFLUENZA SEASONAL QUADRIVALENT HIGH DOSE AGE 65+ Avtar Chowdary MD Work Phone: Start: 11-27-2022 [employer] COVI D-19 BIVALENT BOOSTER VACCINE, AGE 12+ YR Avtar Chowdary MD Work Phone: Start: 01-29-2020 Mammography Emeka nielsen PSS Start: 12-31-2010 Colonoscopy Emeka Gallagher ng PSS Plan of Treatment Date Care Activity Detail Author Start: 12-02-2027 Lipid 1996 panel - Serum or Plasma Lipid Screening [facility] Start: 12-02-2027 Lipid panel Lipid Screening [facility] Start: 12-02-2027 LIPID SCREEN LIPID SCREEN [facility] Start: 12-15-2026 Diabetes Screening [facility] Start: 11-07-2026 Diabetes Screening [facility] Start: 05-27-2026 DIABETES SCREEN DIABETES SCREEN [facility] Start: 05-27-2026 Diabetes Screening [facility] Start: 03-12-2026 COLOGUARD (FIT-DNA) COLOGUARD (FIT-D NA) [facility] Start: 03-12-2026 COLORECTAL CANCER SCREENING COLORECTAL CANCER SCREENING [facility] Start: 03-12-2026 Screening for malign ant neoplasm of colon [facility] Start: 12-02-2025 DIABETES SCREEN DIABETES SCREEN [facility] Start: 11-22-2024 Annual PCP Team Orthotist tami Disease Visit Annual PCP Team Chronic Disease Visit [facility] Start: 11-06-2024 BP Controlled (<130/80) BP Controlle d (<130/80) [facility] Start: 05-27-2024 ANNUAL PCP TEAM MAIL MESSENGER TAMI DISEASE VISIT ANNUAL PCP TEAM CHRONIC DISEASE VISIT [facility] Start: 03-08-2024 Mammography [facility] Start: 03-08-2024 Screening for malign ant neoplasm of breast Mammogram Screening [facility] Start: 02-27-2024 ANNUAL PCP TEAM MAIL MESSENGER TAMI DISEASE VISIT ANNUAL PCP TEAM CHRONIC DISEASE VISIT [facility] Start: 02-27-2024 BP CONTROLLED (<130/80) BP CONTROLLE D (<130/80) [facility] Start: 02-23-2024 ANNUAL PCP TEAM MAIL MESSENGER TAMI DISEASE VISIT ANNUAL PCP TEAM CHRONIC DISEASE VISIT [facility] Start: 02-12-2024 DIABETES SCREEN DIABETES SCREEN [facility] Start: 12-16-2023 End: 03-16-2024 Basic metabolic 2000 panel - Serum or Plasma BASIC METABOLIC PNL Lab Routine Congestive heart failure, unspecified HF chronicity, unspecified heart failure type (HCC) Expected: 12/16/2023, Expires: 03/16/2024 [facility] Work Phone: Immunizations Immunization Date Immunization Notes Care Provider Kendall ellis 11-27-2022 COVID-19 booster vaccine, age 12+ yr, bivalent ([employer]) Avtar Chowdary MD Work Phone: [facility] 11-27-2022 influenza, high-dose , quadrivalent vaccine (FLUZONE HIGH DOSE QUADRIVALENT) Avtar Chowdary MD Work Phone: [facility] 11-27-2022 influenza virus vacc ine, unspecified formulation Moriah Reyes MA [facility] 08-21-2021 influenza, high-dose , quadrivalent vaccine (FLUZONE HIGH DOSE QUADRIVALENT) Avtar Chowdary MD Work Phone: [facility] 09-05-2020 influenza, high dose seasonal, preservative-free Emeka Young [facility] 09-05-2020 influenza, high-dose , quadrivalent vaccine (FLUZONE HIGH DOSE QUADRIVALENT) Avtar Chowdary MD Work Phone: [facility] 09-25-2019 influenza, high dose seasonal, preservative-free Emeka Desai [facility] 08-06-2018 influenza, high dose seasonal, preservative-free Emeka Desai [facility] 02-25-2018 pneumococcal polysaccharide vaccine, 23 valent Emeka Desai [facility] 08-16-2017 influenza, high dose seasonal, preservative-free Emeka Desai [facility] 12-07-2016 pneumococcal conjuga te vaccine, 13 valent Emeka Desai [facility] 03-06-2015 zoster vaccine, live Emeka GONZALEZ S [facility] Work Phone: 08-07-2009 tetanus and diphther ia toxoids, not adsorbed, for adult use Emeka Desai [facility] Payers Date Payer Category Payer Medicare [id number] 2016 Private Health Insurance [employer] A ETNA MEDICARE SUPPLEMENT [id number] 2016-Present [phone] [address] [address] [place] [address] Indemnity [id number] 2016 Private Health Insurance [id number] 2016 Medicare [id number] 2016 Medicare MEDICARE MEDICAR E A AND B [id number] 2016-Present [phone] [place] [address] Medicare [id number] 2016 Medicare MEDICARE MEDICAR E A AND B [id number] 2016-Present [phone] [place] [address] Medicare [id number] 1950 Unknown [id number] 1950 Unknown [id number] 1950 Unknown [id number] Medicare [id number] Medicare [id number] Social History Date Type Detail Facility Start: 08-26-2011 Tobacco smoking stat us NHIS Never smoked tobacco [facility] Start: 09-25-2019 End: 11-22-2023 Alcohol intake Current non-drinker of alcohol (finding) [facility] Start: 1950 Sex Assigned At Not on file [facility] Start: 04-25-2022 End: 05-05-2022 Exposure to SARS-CoV-2 (event) Not sure [facility] Start: 08-26-2011 Tobacco use and exposure Smokeless tobacco non-user [facility] Work Phone: Start: 05-22-2019 End: 05-27-2023 History of Social function [facility] Start: 05-22-2019 End: 05-27-2023 Tobacco use panel [facility] Adult Depression Screening Assessment 0 [facility] Clinical Notes 01-20-2007 to 12-20-2023 Telephone Encounter - Sarah Blanton RN - 12/16/2023 12:58 PM ESTTelephone Encounter - Avtar Chowdary MD - 12/16/2023 8:37 AM ESTTelephone Encounter - Kristin Smith - 11/07/2023 11:55 AM EST Note Date & Type Note Facility 12-20-2023 Note HNO ID: [id number] Author: AVTAR CHOWDARY MD Service: ? Author Type: Physician Type: Progress Notes Filed: 12/20/2023 12:05 Note Text: Patient presents with: Follow Up HPI: Patient presents today for office visit for follow up. Scheduled with Dr. Witt, Cardiology on 12/29/23. Spironolactone had no refills. She is to recheck labs in one month. Repeat thyroid was ok. No chest pain, shortness of breath, orthopnea. No edema. Weight is down. No palpitations. No bleeding or bruising. Component Latest Ref Rng AND Units 12/15/2023 Glucose 74 - 99 mg/dL 93 BUN 7 - 21 mg/dL 20 Creatinine 0.58 - 0.96 mg/dL 0.98 (H) Sodium 136 - 144 mmol/L 142 Potassium 3.7 - 5.1 mmol/L 4.4 Chloride 97 - 105 mmol/L 102 CO2 22 - 30 mmol/L 29 Anion Gap 9 - 18 mmol/L 11 Calcium 8.5 - 10.2 mg/dL 10.1 eGFR >=60 mL/min/1.73mA? 61 T4 5.5 - 10.2 ug/dL 7.1 T4 Uptake 0.91 - 1.19 1.11 FTI 5.3 - 10.8 ug/dL 6.4 TSH 0.270 - 4.200 mIU/L 3.640 Magnesium 1.7 - 2.3 mg/dL 2.4 (H) See previous OV note 11/22/23: Admitted into [facility] 11/07/23 Discharged 11/09/23 Diagnoses:CHF, a fib. Elevated tsh Dyspnea. Symptoms concerning CHF. A-fib. Started on Eliquis. HTN. Continuing on Amlodipine and Losartan. Started on Aldactone. [facility] care put her on Furosemide 20 mg 11/06/23. No more refills. Elevated TSH. Endo recommends outpatient follow up of tsh in one month. Denies chest pain and shortness of breath in office today. No edema. Weight is down. No palpitations or dizziness. No bleeding or bruising. See Discharge summary: Reason for Hospitalization: Dyspnea Diagnosis: Principal Problem: CHF (congestive heart failure), NYHA class IV, acute on chronic, combined (HCC) (POA: Yes) Active Problems: Elevated TSH (POA: Unknown) Atrial fibrillation (HCC) (POA: Unknown) Resolved Problems: * No resolved hospital problems. * Hospital Course as Described to the Patient: You were admitted for Dyspnea. 73 year old female has a past medical history of Anxiety (10/06/2011), Diverticulosis of colon (without mention of hemorrhage), External hemorrhoids without mention of complication, Personal history of poliomyelitis, and Unspecified essential hypertension. presented with SOB for last few days prior to arrival to the hospital. Initially SOB was mild, Exacerbated by general activity or exertion. Relieved only partially by rest. Outpatient lab showed elevated BNP. The patient was seen and examined at bedside, appears alert and awake with no acute distress. Denied any resting ongoing chest pain, resting SOB, hemoptysis, productive cough, fever, ongoing palpitation, active abdominal pain, hematemesis, rectal bleeding, kenan, hematuria, any other and GI complaints, and any new focal neuro deficits . Hospital Course as below: #Exertional dyspnea -Symptoms concerning for CHF. Cardiology has been consulted. Appreciate recs. -TTE with WNL #New diagnosis of A-fib -Started on apixaban. She will need to follow-up with EP outpatient. referral placed #Hypertension -Continue amlodipine and losartan. Cardiology has also ordered renin angiotensin level for hyperaldosteronism evaluation. -Aldactone started 11/09 #Elevated TSH -This is likely subclinical hypothyroidism. T3/T4 is normal. Will need to repeat TSH in 4 to 6 weeks. Mildly elevated TSH with normal free T3 and free T4 not the cause of CHF. -Evaluated by endo, recommended repeat studies OP. No need for thyroid replacement therapy at this time MEDICATIONS: Current Outpatient Medications Medication Sig furosemide (LASIX) 20 mg tablet Take 1 tablet by mouth once daily. apixaban (ELIQUIS) 5 mg tab(s) Take 1 tablet by mouth two times a day. spironolactone (ALDACTONE) 25 mg tablet Take 1 tablet by mouth once daily. amLODIPine (NORVASC) 5 mg tablet Take 1 tablet by mouth once daily. escitalopram oxalate (LEXAPRO) 20 mg tablet Take 1 tablet by mouth once daily. losartan (COZAAR) 100 mg tablet Take 1 tablet by mouth once daily. No current facility-administered medications for this visit. ALLERGIES: ALLERGIES Allergen Reactions Hctz [Thiazides] GI Upset Lisinopril cough Potassium Chloride Rash Hives Zocor [Simvastatin] vomitting PAST MEDICAL HISTORY Diagnosis Date Anxiety 10/06/2011 Diverticulosis of colon (without mention of hemorrhage) External hemorrhoids without mention of complication Personal history of poliomyelitis Unspecified essential hypertension PAST SURGICAL HISTORY Procedure Laterality Date ARTHROSCOPY KNEE DIAGNOSTIC W/WO SYNOVIAL BX SPX Arthroscopy, knee, Left COLONOSCOPY FLX DX W/COLLJ SPEC WHEN PFRMD 12/31/10 EMG 12/04/2015 [facility] - see scanned document ENDOMETRIAL ABLTJ THERMAL W/O HYSTEROSCOPIC GUID LIG/TRNSXJ FLP TUBE ABDL/VAG APPR UNI/BI Tubal ligation TONSILLECTOMY PRIMARY/SECONDARY Tonsillectomy FAMILY HISTORY Problem Relation Age of Onset Heart Mother Smoker (more content not included)... [facility] 12-16-2023 Miscellaneous Notes Pt called and is notified of providers results and instructions. Pt voices understanding. Pt has a 4 week f/u with provider next week. Pt denies any SOB or edema. She states she is just tired. She wanted to let provider know she has an appointment with Dr Witt on 12/29/23 with [facility] Cardiology. Sarah Blanton, RN Labs are improving. Mag is improving as well. Recheck labs in one month. How feeling? Any shortness of breath or edema. documented in this encounter [facility] 11-22-2023 Note HNO ID: [id number] Author: AVTAR CHOWDARY MD Service: ? Author Type: Physician Type: Progress Notes Filed: 11/22/2023 11:55 Note Text: Patient presents with: Hospital Follow Up HPI: Patient presents today for office visit for hospital follow up./TCM Admitted into [facility] 11/07/23 Discharged 11/09/23 Diagnoses:CHF, a fib. Elevated tsh Dyspnea. Symptoms concerning CHF. A-fib. Started on Eliquis. HTN. Continuing on Amlodipine and Losartan. Started on Aldactone. [facility] put her on Furosemide 20 mg 11/06/23. No more refills. Elevated TSH. Endo recommends outpatient follow up of tsh in one month. Denies chest pain and shortness of breath in office today. No edema. Weight is down. No palpitations or dizziness. No bleeding or bruising. See Discharge summary: Reason for Hospitalization: Dyspnea Diagnosis: Principal Problem: CHF (congestive heart failure), NYHA class IV, acute on chronic, combined (HCC) (POA: Yes) Active Problems: Elevated TSH (POA: Unknown) Atrial fibrillation (HCC) (POA: Unknown) Resolved Problems: * No resolved hospital problems. * Hospital Course as Described to the Patient: You were admitted for Dyspnea. 73 year old female has a past medical history of Anxiety (10/06/2011), Diverticulosis of colon (without mention of hemorrhage), External hemorrhoids without mention of complication, Personal history of poliomyelitis, and Unspecified essential hypertension. presented with SOB for last few days prior to arrival to the hospital. Initially SOB was mild, Exacerbated by general activity or exertion. Relieved only partially by rest. Outpatient lab showed elevated BNP. The patient was seen and examined at bedside, appears alert and awake with no acute distress. Denied any resting ongoing chest pain, resting SOB, hemoptysis, productive cough, fever, ongoing palpitation, active abdominal pain, hematemesis, rectal bleeding, kenan, hematuria, any other and GI complaints, and any new focal neuro deficits . Hospital Course as below: #Exertional dyspnea -Symptoms concerning for CHF. Cardiology has been consulted. Appreciate recs. -TTE with WNL #New diagnosis of A-fib -Started on apixaban. She will need to follow-up with EP outpatient. referral placed #Hypertension -Continue amlodipine and losartan. Cardiology has also ordered renin angiotensin level for hyperaldosteronism evaluation. -Aldactone started 11/09 #Elevated TSH -This is likely subclinical hypothyroidism. T3/T4 is normal. Will need to repeat TSH in 4 to 6 weeks. Mildly elevated TSH with normal free T3 and free T4 not the cause of CHF. -Evaluated by endo, recommended repeat studies OP. No need for thyroid replacement therapy at this time MEDICATIONS: Current Outpatient Medications Medication Sig apixaban (ELIQUIS) 5 mg tab(s) Take 1 tablet by mouth two times a day. spironolactone (ALDACTONE) 25 mg tablet Take 1 tablet by mouth once daily. amLODIPine (NORVASC) 5 mg tablet Take 1 tablet by mouth once daily. escitalopram oxalate (LEXAPRO) 20 mg tablet Take 1 tablet by mouth once daily. losartan (COZAAR) 100 mg tablet Take 1 tablet by mouth once daily. furosemide (LASIX) 20 mg tablet Take 1 tablet by mouth once daily. (Patient not taking: Reported on 11/22/2023) No current facility-administered medications for this visit. ALLERGIES: ALLERGIES Allergen Reactions Hctz [Thiazides] GI Upset Lisinopril cough Potassium Chloride Rash Hives Zocor [Simvastatin] vomitting PAST MEDICAL HISTORY Diagnosis Date Anxiety 10/06/2011 Diverticulosis of colon (without mention of hemorrhage) External hemorrhoids without mention of complication Personal history of poliomyelitis Unspecified essential hypertension PAST SURGICAL HISTORY Procedure Laterality Date ARTHROSCOPY KNEE DIAGNOSTIC W/WO SYNOVIAL BX SPX Arthroscopy, knee, Left COLONOSCOPY FLX DX W/COLLJ SPEC WHEN PFRMD 12/31/10 EMG 12/04/2015 [facility] - see scanned document ENDOMETRIAL ABLTJ THERMAL W/O HYSTEROSCOPIC GUID LIG/TRNSXJ FLP TUBE ABDL/VAG APPR UNI/BI Tubal ligation TONSILLECTOMY PRIMARY/SECONDARY Tonsillectomy FAMILY HISTORY Problem Relation Age of Onset Heart Mother Smoker Heart Father Smoker Emphysema Father Social History Tobacco Use Smoking status: Never Smokeless tobacco: Never Substance Use Topics Alcohol use: No Drug use: No Reviewed current medications, allergies, past medical history, surgical history, family history and social history today. REVIEW OF SYSTEMS All other reviewed and negative other than HPI. VITALS: BP 130/84 Pulse 63 Ht 149.9 cm (4' 11 ) Wt 92.7 kg (204 lb 6.4 oz) SpO2 96% BMI 41.28 kg/m? Last 4 Encounter Wt Readings: Date: Wt: 11/07/2023 93 kg (205 lb 0.4 oz) 11/07/2023 96.2 kg (212 lb) 11/06/2023 96.2 kg (212 lb) 05/27/2023 94 kg (207 lb 3.2 oz) PHYSICAL EXAMINATION: General appearance: Well appearing, (more content not included)... [facility] 11-18-2023 Note HNO ID: [id number] Author: POLLY DORAN, SHERINE Service: ? Author Type: Registered Nurse Type: Progress Notes Filed: 11/18/2023 14:12 Note Text: TRANSITION CARE MANAGEMENT (TCM) FOLLOW-UP NOTE Provider Action/FYI Spoke with pt Reports feeling great Tolerating Eliquis and spironolactone without adverse effect Confirmed PCP follow up appt 11/22 No questions or needs Advised to call PCP with new/worsening symptoms Cardiology is facilitating follow up appt in a separate encounter, pt aware Patient identified by name and date of : NO Spoke to patient Discharge Network Status: In-Network Discharge Summary: DC'd from [facility] on 11/09 for new onset CHF [employer]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 11-18-2023 Note [place] Out[place] [facility] JEFFERSONMARIANELA ([id number]) 1950 F Date Time Provider Department 11/18/23 POLLY DORAN During your visit today, we recorded the following information about you: Polly Doran RN 11/18/2023 2:12 PM Signed TRANSITION CARE MANAGEMENT (TCM) FOLLOW-UP NOTE Provider Action/FYI Spoke with pt Reports feeling great Tolerating Eliquis and spironolactone without adverse effect Confirmed PCP follow up appt 11/22 No questions or needs Advised to call PCP with new/worsening symptoms Cardiology is facilitating follow up appt in a separate encounter, pt aware Patient identified by name and date of : NO Spoke to patient Discharge Network Status: In-Network Discharge Summary: DC'd from [facility] on 11/09 for new onset CHF [employer]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 - spironolactone (ALDACTONE) 25 mg tablet Take 1 tablet by mouth once daily. - furosemide (LASIX) 20 mg tablet Take 1 tablet by mouth once daily. - amLODIPine (NORVASC) 5 mg tablet Take 1 tablet by mouth once daily. - escitalopram oxalate (LEXAPRO) 20 mg tablet Take 1 tablet by mouth once daily. - losartan (COZAAR) 100 mg tablet Take 1 tablet by mouth once daily. 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 Hyperlipidemia with target LDL less than 130 [E*2010 Morbid obesity with BMI of 40.0-44.9, adult (HC*05/28/2015 Anxiety and depression [F41.9, F32.A] 02/25/2018 Right knee pain [M25.561] 08/17/2019 11/27/2022 Fatigue [R53.83] 10/06/2022 11/27/2022 Foot drop [M21.379] 09/07/2022 History of poliomyelitis [Z86.12] 09/07/2022 Hypokalemia [E87.6] 11/27/2022 Knee injury [S89.90XA] 11/27/2022 11/27/2022 Neuropathy of lower extremity [G57.90] 09/07/2022 CHF (congestive heart failure), NYHA class IV, *11/07/2023 Elevated TSH [R79.89] 11/09/2023 Atrial fibrillation (HCC) [I48.91] 11/09/2023 Encounter Status:Closed by POLLY DORAN on 11/18/23 [facility] 11-10-2023 Note Patient Outreach (AM [facility]) MARIANELA BASHIR ([id number]) 1950 F Date Time Provider Department 11/10/23 POLLY DORAN During your visit today, we recorded the following information about you: Polly Doran RN 11/10/2023 11:58 AM Signed TRANSITIONAL CARE MANAGEMENT (TCM) COMMUNITY MONITORING PROGRAM Provider Action/FYI: Appts 11/29 PCP Spoke with pt Denies chest pain, SOB, dizziness, nausea/vomiting Reports feeling better Tolerating medication without adverse effect No questions or needs Will forward to PCP office to offer TCM appt Cardio and Endocrine contact info given to pt Advised to call PCP with new/worsening symptoms Polly Doran RN SUMMARY: Discharge Network Status: In-Network Discharge Pt discharged from [facility] on 11/09/23. Admitted for: CHF/afib Contact made with patient: Yes Hi my name is Polly Dorna RN and I am calling from the [facility] on behalf of your PCP, Avtar Chowdary MD I understand you were recently in the hospital so I am calling to check in with you to ensure you are feeling well now that you're home. May I ask you a few questions related to your hospital stay and well-being? Yes Contact with patient post discharge, spoke to patient. Patient identified by name and . Do you feel your health is BETTER, WORSE, or the SAME since leaving the hospital? Better ACTION TAKEN: Patient indicated symptoms are better or same, no action required. Continue outreach. MEDICATIONS: Many patients have questions or concerns about their medications once they are home. Do you have any questions about taking your medications or which medication you should be on? No Do you need any medication refills at this time, including any of the medications you might take only when needed? No ACTION TAKEN : No action required For RNs or Pharmacy completing outreach ONLY, was a medication review completed? Yes SOCIAL: We would like to make sure you have what you need so that your basics needs are met - including your personal safety, food, housing and medications. Would you like to speak with a social work horses or mules teamster to help give you support for any of these needs? No It can be normal to feel anxious or down during a time like this. Would you like to talk to a mental health professional about how you have been feeling? No ACTION TAKEN: No action taken DISCHARGE INTRUCTIONS: Your discharge instructions / After Visit Summary (AVS) are important in guiding you through the recovery process. Do you have any questions related to your discharge instructions? No Do you have all the necessary equipment and supplies at home? Yes ACTION TAKEN: No action required I would like to help you schedule a hospital follow-up virtual or telephone visit with your PCP. This is a great way for you to connect with your provider to ensure you have safely transitioned home. If you are agreeable, I will send your request to a nursing scheduler who will contact and assist you with that appointment. This will give you an opportunity to ask any questions or address any concerns you may have with your PCP. Inform the patient that if they have any questions or concerns prior to that appointment, to call their PCP's office right away. ACTION TAKEN: No action required, patient already has an appointment scheduled. Your doctor would like us to remind you of the recommendations regarding the coronavirus (Covid19) outbreak: Avoid public places as much as possible. Avoid close contact (within 6 feet) with others you don?t live with, especially if they are sick. Stay home if you are sick. Wash your hands regularly for at least 20 seconds with soap and water. Wear a cloth mask in public places to help reduce community spread. Do not go to your Doctor?s office unless instructed to do so. For any non-emergency symptoms, call your Doctor?s office to get instructions on how to manage (we might recommend a telephone or virtual visit). For emergency symptoms, proceed to Emergency Department as usual but inform them of cough and fever symptoms THERESE if present (or call on the way if possible). NISH Education Ordered -: No Allergies As of Date: 11/10/2023 Noted Allergy Reaction HCTZ (THIAZIDES) 12/07/2016 8 - GI Upset LISINOPRIL 03/31/2010 Comments: cough POTASSIUM CHLORIDE 01/27/2019 2 - Rash Comments: Hives ZOCOR (SIMVASTATIN) 07/09/2010 Comments: vomitting Date Reviewed: 11/07/2023 Reviewed by: Caryn Meier RN - Fully Assessed Reason for Visit: Transition Of Care [0223] Cmt: [facility], initial outreach Prescriptions as of 11/10/2023 - apixaban (ELIQUIS) 5 mg tab(s) Take 1 tablet by mouth two times a day. - spironolactone (ALDACTONE) 25 mg tablet Take 1 tablet by mouth once daily. - furosemide (LASIX) 20 mg tablet Take 1 tablet by mouth on (more content not included)... [facility] 11-10-2023 Note HNO ID: [id number] Author: Doran, Monalisa, RN Service: ? Author Type: Registered Nurse Type: Progress Notes Filed: 11/10/2023 11:58 AM Note Text: TRANSITIONAL CARE MANAGEMENT (TCM) COMMUNITY MONITORING PROGRAM Provider Action/FYI: Appts 11/29 PCP Spoke with pt Denies chest pain, SOB, dizziness, nausea/vomiting Reports feeling better Tolerating medication without adverse effect No questions or needs Will forward to PCP office to offer TCM appt Cardio and Endocrine contact info given to pt Advised to call PCP with new/worsening symptoms Polly Doran RN SUMMARY: Discharge Network Status: In-Network Discharge Pt discharged from [facility] on 11/09/23. Admitted for: CHF/afib Contact made with patient: Yes Hi my name is Polly Doran RN and I am calling from the [facility] on behalf of your PCP, Avtar Chowdary MD I understand you were recently in the hospital so I am calling to check in with you to ensure you are feeling well now that you're home. May I ask you a few questions related to your hospital stay and well-being? Yes Contact with patient post discharge, spoke to patient. Patient identified by name and . Do you feel your health is BETTER, WORSE, or the SAME since leaving the hospital? Better ACTION TAKEN: Patient indicated symptoms are better or same, no action required. Continue outreach. MEDICATIONS: Many patients have questions or concerns about their medications once they are home. Do you have any questions about taking your medications or which medication you should be on? No Do you need any medication refills at this time, including any of the medications you might take only when needed? No ACTION TAKEN : No action required For RNs or Pharmacy completing outreach ONLY, was a medication review completed? Yes SOCIAL: We would like to make sure you have what you need so that your basics needs are met - including your personal safety, food, housing and medications. Would you like to speak with a social work horses or mules teamster to help give you support for any of these needs? No It can be normal to feel anxious or down during a time like this. Would you like to talk to a mental health professional about how you have been feeling? No ACTION TAKEN: No action taken DISCHARGE INTRUCTIONS: Your discharge instructions / After Visit Summary (AVS) are important in guiding you through the recovery process. Do you have any questions related to your discharge instructions? No Do you have all the necessary equipment and supplies at home? Yes ACTION TAKEN: No action required I would like to help you schedule a hospital follow-up virtual or telephone visit with your PCP. This is a great way for you to connect with your provider to ensure you have safely transitioned home. If you are agreeable, I will send your request to a nursing scheduler who will contact and assist you with that appointment. This will give you an opportunity to ask any questions or address any concerns you may have with your PCP. Inform the patient that if they have any questions or concerns prior to that appointment, to call their PCP's office right away. ACTION TAKEN: No action required, patient already has an appointment scheduled. Your doctor would like us to remind you of the recommendations regarding the coronavirus (Covid19) outbreak: Avoid public places as much as possible. Avoid close contact (within 6 feet) with others you don?t live with, especially if they are sick. Stay home if you are sick. Wash your hands regularly for at least 20 seconds with soap and water. Wear a cloth mask in public places to help reduce community spread. Do not go to your Doctor?s office unless instructed to do so. For any non-emergency symptoms, call your Doctor?s office to get instructions on how to manage (we might recommend a telephone or virtual visit). For emergency symptoms, proceed to Emergency Department as usual but inform them of cough and fever symptoms THERESE if present (or call on the way if possible). NISH Education Ordered -: No [facility] 11-09-2023 Note HNO ID: [id number] Author: Alyson Coelho CPhT Service: Pharmacy Author Type: Validation Specialist Type: Plan of Care Filed: 11/09/2023 4:07 PM Note Text: PHARMACY BEDSIDE DELIVERY SERVICE Patient Name: Marianela Basihr The marked outpatient medications were Filled at: [facility] and delivered to the patient's bedside to patient Medication List START taking these medications ELIQUIS 5 mg tab(s) Generic drug: apixaban Take 1 tablet by mouth two times a day. spironolactone 25 mg tablet Commonly known as: ALDACTONE Take 1 tablet by mouth once daily. Start taking on: November 10, 2023 CONTINUE taking these medications amLODIPine 5 mg tablet Commonly known as: NORVASC Take 1 tablet by mouth once daily. escitalopram oxalate 20 mg tablet Commonly known as: LEXAPRO Take 1 tablet by mouth once daily. furosemide 20 mg tablet Commonly known as: LASIX Take 1 tablet by mouth once daily. losartan 100 mg tablet Commonly known as: COZAAR Take 1 tablet by mouth once daily. You might also be taking other medications not listed above. If you have questions about any of your other medications, talk to the person who prescribed them or your Primary Care Provider. Alyson Coelho [facility] PAGER: Alyson Coelho [phone] 11/09/23 4:07 PM November 09, 2023 4:06 PM [facility] 11-09-2023 Note HNO ID: [id number] Author: Tiesha Adamson RN Service: Care Management Author Type: Registered Nurse Type: Care Mgt Progress Note Filed: 11/09/2023 4:00 PM Note Text: CARE MANAGEMENT PROGRESS NOTE SERVICE DATE: 11/09/2023 SERVICE TIME: 4:00 PM LOS: 2 days IMM Follow Up Copy Given: Yes Copy given to:: Patient Method: By Phone SIGNATURE: Tiesha Adamson RN PATIENT NAME: Marianela Bashir DATE: November 09, 2023 TIME: 4:00 PM PAGER/CONTACT #: [phone] [facility] 11-09-2023 Note HNO ID: [id number] Author: Tiesha Adamson RN Service: Care Management Author Type: Registered Nurse Type: Care Mgt Initial Assessment Filed: 11/09/2023 1:31 PM Note Text: CARE MANAGEMENT: ASSESSMENT AND DISCHARGE PLAN SERVICE DATE: November 09, 2023 SERVICE TIME: 1:20 PM PCP: Avtar Chowdary MD Primary Contact: Extended Emergency Contact Information Primary Emergency Contact: Yo Bashir Address: [address] [place] [id number] Mobile Relation: Spouse Admission Status: Inpatient Insurance Provider: MEDICARE A AND B Discharge Planning requested by: Per Department Practice Potential Transition Plans Home Advance Directives Current Living Arrangements and Support Lives with: Spouse/significant other, Family members Type of Residence: Private Residence (House) Does the patient have to climb stairs at home?: Yes;stairs within the home (Basement steps) Support: Family members, Spouse/significant other How do you manage to accomplish the following: Independent: Ambulation;Bathe/Shower;Dress;Kristi ls/Meal Prep;Going to the bathroom;Medication Management;Transportation to appointments/community Current Services/Equipment Current Post-Acute Service(s): None Discharge Planning Patient Goal(s): Be able to go home, General wellness [place] of Choice Explained: Are you interested in bedside delivery of your medications? Yes Discharge Planning Participant(s): Patient Patient/Family Comments: Caregiver Assessment: Caregiver is ready, willing and able to meet the patient's needs as recommended by the inter-professional team: No Caregiver needed Transport at Discharge: Transportation Arrangements: To Be Determined Needs Prior to Discharge: Post-Acute Discharge Plan: Met with pt at bedside, She lives at home with her spouse, Talon. One level, Ranch house with stairs to the basement only. Stating she usually has her grandkids do the stairs. 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 +PCP and uses [facility] in [place]. D/C plan is to return home with spouse when medically ready. SIGNATURE: Tiesha Adamson RN PATIENT NAME: Marianela Bashir DATE: November 09, 2023 TIME: 1:18 PM CONTACT #: [phone] [facility] 11-09-2023 Note HNO ID: [id number] Author: Seb Noe MD Service: Hospital Medicine Author Type: Physician Type: Progress Notes Filed: 11/09/2023 9:03 AM Note Text: DEPARTMENT OF HOSPITAL MEDICINE PROGRESS NOTE SERVICE DATE: 11/09/2023 SERVICE TIME: 6:31 AM Hospital Medicine/Primary Attending: Seb Noe MD NIGHT AND WEEKEND COVERAGE: [place] COVERAGE: After 7pm, please call cross cover pager #[phone] Subjective INTERVAL HPI: Patient seen and examined. Epic reviewed. JENNIFER . MEDICATIONS: Reviewed Objective PHYSICAL EXAM: BP 137/80 Pulse 60 Temp (Src) 97.7 (Oral) Resp 18 Ht 4' 11 (1.50m) Wt 205 lb 0.4 oz (93.0kg) SpO2 95% BMI 41.39 kg/(m2). O2 Therapy: Room Air Physical Exam Performed GENERAL: Alert, no distress, cooperative SKIN: Skin color, texture, turgor normal. No rashes or lesions. LUNGS: Breath sounds are reduced at bilateral lung bases, no wheezing or rhonchi ABDOMEN: Abdomen soft, non-tender, BS normal, No masses or organomegaly EXTREMITIES: Extremities normal, no deformities, edema, clubbing or skin discoloration. Good capillary refill., No ulcers Lines, Drains, and Airways Line Duration Peripheral 11/08/23 Short Right Hand 20 Gauge 1 day Patient does not currently have any lines, drains or airways. DATA: Diagnostic tests reviewed for today's visit: Most recent labs and imaging results. Most recent EKG Assessment/Plan #Exertional dyspnea -Symptoms concerning for CHF. Cardiology has been consulted. Appreciate recs. -Follow-up on echocardiogram. #New diagnosis of A-fib -Started on apixaban. She will need to follow-up with EP outpatient. Would be a good candidate for ablation in the setting of suspected new CHF diagnosis. #Hypertension -Continue amlodipine and losartan. Cardiology has also ordered renin angiotensin level for hyperaldosteronism evaluation. -Aldactone started 11/09 #Elevated TSH -This is likely subclinical hypothyroidism. T3/T4 is normal. Will need to repeat TSH in 4 to 6 weeks. Mildly elevated TSH with normal free T3 and free T4 not the cause of CHF. -Will ask for endocrinology input to see if there is any role of starting Synthroid and autoimmune workup? Portions of this note including HPI, ROS, impression/plan, and examination may have been copied forward from 11/08/2023 to November 09, 2023 as to provide important historical information essential in contributing to medical decision making. Documentation has been reviewed and edited as necessary to support clinical decision making for today's visit and to reflect my own independent evaluation of this patient. The time of this note does not reflect the time I saw the patient but the time that this note was written. Seb Noe MD Internal Medicine Pager: Team Color 11/09/23 6:31 AM [facility] 11-08-2023 Note HNO ID: [id number] Author: Ajay Reyes MD Service: Hospital Medicine Author Type: Fellow Type: Progress Notes Filed: 11/08/2023 1:27 PM Note Text: DEPARTMENT OF HOSPITAL MEDICINE PROGRESS NOTE SERVICE DATE: 11/08/2023 SERVICE TIME: 1:23 PM Hospital Medicine/Primary Attending: Ajay reyes MD NIGHT AND WEEKEND COVERAGE: [place] COVERAGE: After 7pm, please call cross cover pager #[phone] Subjective INTERVAL HPI: Admitted last night with exertional dyspnea concerning for possible new diagnosis of CHF. Currently has no dyspnea at rest. Telemetry reviewed she is in A-fib rate controlled no prior history of atrial fibrillation. MEDICATIONS: Reviewed Objective PHYSICAL EXAM: BP 143/76 Pulse 60 Temp (Src) 98.2 (Oral) Resp 18 Ht 4' 11 (1.50m) Wt 205 lb 0.4 oz (93.0kg) SpO2 96% BMI 41.39 kg/(m2). O2 Therapy: Room Air Physical Exam Performed GENERAL: Alert, no distress, cooperative SKIN: Skin color, texture, turgor normal. No rashes or lesions. LUNGS: Breath sounds are reduced at bilateral lung bases, no wheezing or rhonchi ABDOMEN: Abdomen soft, non-tender, BS normal, No masses or organomegaly EXTREMITIES: Extremities normal, no deformities, edema, clubbing or skin discoloration. Good capillary refill., No ulcers Lines, Drains, and Airways Line Duration Peripheral 11/08/23 Short Right Hand 20 Gauge <1 day Patient does not currently have any lines, drains or airways. DATA: Diagnostic tests reviewed for today's visit: Most recent labs and imaging results. Most recent EKG Assessment/Plan #Exertional dyspnea -Symptoms concerning for CHF. Cardiology has been consulted. Appreciate recs. -Follow-up on echocardiogram. #New diagnosis of A-fib -Started on apixaban. She will need to follow-up with EP outpatient. Would be a good candidate for ablation in the setting of suspected new CHF diagnosis. #Hypertension -Continue amlodipine and losartan. Cardiology has also ordered renin angiotensin level for hyperaldosteronism evaluation. -Plan to start Aldactone in AM. #Elevated TSH -This is likely subclinical hypothyroidism. T3/T4 is normal. Will need to repeat TSH in 4 to 6 weeks. Mildly elevated TSH with normal free T3 and free T4 not the cause of CHF. -Will ask for endocrinology input to see if there is any role of starting Synthroid and autoimmune workup? Ajay reyes MD Fellow Vascular Medicine November 08, 2023 1:26 PM [facility] 11-07-2023 Miscellaneous Notes Patient given results and verbalized understanding of instructions given. Kristin Smith Unable to reach patient. Mailbox full/Mailbox not set up/ Number incorrect. Please try again later. Kristin Smith Her heart failure lab was significantly elevated. Since this is a new issue for her, I recommend ER evaluation this weekend. documented in this encounter [facility] 11-06-2023 Note HNO ID: [id number] Author: Benjamin Ba RT(Jae) Service: ? Author Type: Technologist Type: Progress Notes Filed: 11/06/2023 10:20 AM Note Text: Radiology Service Progress Note PATIENT NAME: Marianela Bashir DATE OF SERVICE: November 06, 2023 TIME: 10:14 AM PATIENT IDENTITY VERIFICATION COMPLETED USING TWO (2) IDENTIFIERS: Name and Date of confirmed by patient verbally. FALL SCREENING: Has the patient had 2 falls in the last year or 1 fall with injury or currently using an Ambulatory Assistive Device (Walker, Cane, Wheelchair, Crutches, etc.)? No PATIENT GENDER DATA: Female. status: : No status: NO. PATIENT RELEVANT IMPLANT DATA REVIEWED: Not Applicable RADIOLOGY DEPARTMENT: General X-ray: Exam(s) Completed: Chest X-Ray PERIPHERAL IV DATA: Not applicable SIGNED BY: RT Jason(R) November 06, 2023 10:[address] [facility] 11-06-2023 Note HNO ID: [id number] Author: Halima Irizarry APRN.ILAN Service: ? Author Type: Nurse Practitioner Type: Progress Notes Filed: 11/06/2023 11:18 AM Note Text: Subjective HPI HPI Marianela Bashir is a 73 year old female who presents today for CC of wheeze, scratchy throat, sob with ambulation. This started 2 days ago. Has tried nothing for relief. Symptoms are worsened by nothing. No sick exposures known. Reports weight gain in past month .Patient presents with: Chest Congestion: wheezing and cough x 2 days PAST MEDICAL HISTORY Diagnosis Date Anxiety 10/06/2011 Diverticulosis of colon (without mention of hemorrhage) External hemorrhoids without mention of complication Personal history of poliomyelitis Unspecified essential hypertension PAST SURGICAL HISTORY Procedure Laterality Date ARTHROSCOPY KNEE DIAGNOSTIC W/WO SYNOVIAL BX SPX Arthroscopy, knee, Left COLONOSCOPY FLX DX W/COLLJ SPEC WHEN PFRMD 12/31/10 EMG 12/04/2015 [facility] - see scanned document ENDOMETRIAL ABLTJ THERMAL W/O HYSTEROSCOPIC GUID LIG/TRNSXJ FLP TUBE ABDL/VAG APPR UNI/BI Tubal ligation TONSILLECTOMY PRIMARY/SECONDARY Tonsillectomy ALLERGIES Environmental [Other], Hctz [Thiazides], Lisinopril, Potassium Chloride, and Zocor [Simvastatin] MEDICATIONS amLODIPine (NORVASC) 5 mg tablet Take 1 tablet by mouth once daily. escitalopram oxalate (LEXAPRO) 20 mg tablet Take 1 tablet by mouth once daily. losartan (COZAAR) 100 mg tablet Take 1 tablet by mouth once daily. FAMILY HISTORY Problem Relation Age of Onset Heart Mother Smoker Heart Father Smoker Emphysema Father Social History Tobacco Use Smoking status: Never Smokeless tobacco: Never Substance Use Topics Alcohol use: No Drug use: No Review of Systems Constitutional: Negative for fever. HENT: Positive for congestion and sore throat. Negative for ear pain and nosebleeds. Respiratory: Positive for cough and shortness of breath. Negative for wheezing. Cardiovascular: Negative for chest pain. Musculoskeletal: Negative for neck pain. Skin: Negative for itching and rash. Objective Blood pressure 124/78, pulse 72, temperature 36.7 ?C (98.1 ?F), resp. rate 18, weight 96.2 kg (212 lb), SpO2 95%. Component Latest Ref Rng AND Units 05/27/2023 Glucose 74 - 99 mg/dL 86 BUN 7 - 21 mg/dL 20 Creatinine 0.58 - 0.96 mg/dL 0.81 Sodium 136 - 144 mmol/L 140 Potassium 3.7 - 5.1 mmol/L 4.4 Chloride 97 - 105 mmol/L 103 CO2 22 - 30 mmol/L 26 Anion Gap 9 - 18 mmol/L 11 Calcium 8.5 - 10.2 mg/dL 9.7 eGFR >=60 mL/min/1.73mA? 77 Physical Exam Constitutional: General: She is not in acute distress. Appearance: She is not toxic-appearing or diaphoretic. HENT: Head: Normocephalic and atraumatic. Cardiovascular: Rate and Rhythm: Normal rate and regular rhythm. Heart sounds: Normal heart sounds, S1 normal and S2 normal. Pulmonary: Effort: Pulmonary effort is normal. Breath sounds: Normal breath sounds. Lymphadenopathy: Cervical: No cervical adenopathy. Right cervical: No superficial cervical adenopathy. Left cervical: No superficial cervical adenopathy. Neurological: Mental Status: She is alert and oriented to person, place, and time. Gait: Gait is intact. ASSESSMENT/PLAN: 1. Wheezing - ICD9: 786.07, ICD10: R06.2 (primary diagnosis) Xray restults below, will order bnpt, bnp, lasix Will schedule with pcp -If you experience chest pain/shortness of breath go to ER - XR CHEST 2V FRONTAL/LAT - NT PRO BNP - BASIC METABOLIC PNL 2. URI, acute - ICD9: 465.9, ICD10: J06.9 - Discussed viral etiology and rationale for treatment. - Symptomatic treatment with prn analgesia - Supportive care with fluids and rest - Follow up in 3-5 days if symptoms persist or sooner if worsening of symptoms - COVID AND INFLUENZA A/B AND RSV NAAT, ROUTINE 3. Weight gain - ICD9: 783.1, ICD10: R63.5 - NT PRO BNP - BASIC METABOLIC PNL - FUROSEMIDE 20 MG TABLET Halima Irizarry APRN.PMP Plan discussed with collaborating physician Dr. Kumar [facility] 08-30-2023 Note Patient Outreach (NE TNAV) MARIANELA BASHIR ([id number]) 1950 F Date Time Provider Department 08/30/23 MORIAH REYES NETNAV During your visit today, we recorded the following information about you: Moriah Reyes MA 08/30/2023 2:57 PM Signed POPULATION HEALTH NAVIGATION OUTREACH Action/FYI LVM [employer] MESSAGE SENT ANNUAL MEDICARE WELLNESS EXAM after 12-07-23 BP Controlled (<130/80) Never done Influenza Vaccine(1) due on 07/16/2023 Patient Identified by Name and : NO Outreach Outcome/Action Unable to reach patient: Left message [employer] message sent Did you use a PCP flex slot to schedule this appointment? No Reason for Outreach Care Gap or Scheduling/Wellness visits Payer: Payor: MEDICARE / Plan: MEDICARE A AND B / Product Type: Medicare / Care Gap Reviewed:: Annual Wellness visit Controlling Blood Pressure Flu Vaccine Reminder: Reminder note to check Health Maintenance for items below Health Maintenance items due: BP Controlled (<130/80) Never done Influenza Vaccine(1) due on 07/16/2023 Covid-19 Vaccine( season) due on 07/16/2023 Navigation Signature: Moriah Reyes MA August 30, 2023 10:22 AM Allergies As of Date: 08/30/2023 Noted Allergy Reaction ENVIRONMENTAL [Other] 07/15/2005 Comments: HOUSE DUST, WEEDS AND GRASSES HCTZ (THIAZIDES) 12/07/2016 8 - GI Upset LISINOPRIL 03/31/2010 Comments: cough POTASSIUM CHLORIDE 01/27/2019 2 - Rash Comments: Hives ZOCOR (SIMVASTATIN) 07/09/2010 Comments: vomitting Date Reviewed: 06/10/2023 Reviewed by: Medina Ramires, RT(R) - Fully Assessed Reason for Visit: Population Health Navigation Outreach [3910] Cmt: ACO CARE GAP Prescriptions as of 08/30/2023 - amLODIPine (NORVASC) 5 mg tablet Take 1 tablet by mouth once daily. - escitalopram oxalate (LEXAPRO) 20 mg tablet Take 1 tablet by mouth once daily. - losartan (COZAAR) 100 mg tablet Take 1 tablet by mouth once daily. 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 08-30-2023 Note HNO ID: [id number] Author: Moriah Reyes MA Service: ? Author Type: Eligibility Supervisor Type: Progress Notes Filed: 08/30/2023 2:57 PM Note Text: POPULATION HEALTH NAVIGATION OUTREACH Action/I LV [employer] MESSAGE SENT ANNUAL MEDICARE WELLNESS EXAM after 12-07-23 BP Controlled (<130/80) Never done Influenza Vaccine(1) due on 07/16/2023 Patient Identified by Name and : NO Outreach Outcome/Action Unable to reach patient: Left message [place] message sent Did you use a PCP flex slot to schedule this appointment? No Reason for Outreach Care Gap or Scheduling/Wellness visits Payer: Payor: MEDICARE / Plan: MEDICARE A AND B / Product Type: Medicare / Care Gap Reviewed:: Annual Wellness visit Controlling Blood Pressure Flu Vaccine Reminder: Reminder note to check Health Maintenance for items below Health Maintenance items due: BP Controlled (<130/80) Never done Influenza Vaccine(1) due on 07/16/2023 Covid-19 Vaccine( season) due on 07/16/2023 Navigation Signature: Moriah Reyes MA August 30, 2023 10:[address] [facility] 08-30-2023 History of Present illness Narrative POPULATION HEALTH NAVIGATION OUTREACH Action/FYI LVM MYCHART MESSAGE SENT ANNUAL MEDICARE WELLNESS EXAM after 12-07-23 BP Controlled (<130/80) Never done Influenza Vaccine(1) due on 07/16/2023 Patient Identified by Name and : NO Outreach Outcome/Action Unable to reach patient: Left message MyChart message sent Did you use a PCP flex slot to schedule this appointment? No Reason for Outreach Care Gap or Scheduling/Wellness visits Payer: Payor: MEDICARE / Plan: MEDICARE A AND B / Product Type: Medicare / Care Gap Reviewed:: Annual Wellness visit Controlling Blood Pressure Flu Vaccine Reminder: Reminder note to check Health Maintenance for items below Health Maintenance items due: BP Controlled (<130/80) Never done Influenza Vaccine(1) due on 07/16/2023 Covid-19 Vaccine( season) due on 07/16/2023 Navigation Signature: Moriah Reyes MA August 30, 2023 10:22 AM documented in this encounter [facility] 06-10-2023 Miscellaneous Notes Patient calls and notified of results and providers instructions. Patient verbalizes understanding. Adilia Hodges RN Message left for pt to call back for results. Isabel Morley MA Ct does not show any tumors etc. Shows severe degenerative changes(arthritic) changes at that point. Call if worsens. documented in this encounter [facility] 06-10-2023 Note HNO ID: [id number] Author: Medina Ramires RT(R) Service: ? Author Type: Acid Crane Operator Type: Progress Notes Filed: 06/10/2023 1:36 PM Note Text: Radiology Service Progress Note DATE OF SERVICE: June 10, 2023 TIME: 1:35 PM PATIENT IDENTITY VERIFICATION COMPLETED USING TWO (2) STANDARD IDENTIFIERS: Name and Date of confirmed by patient verbally. FALL SCREENING: Has the patient had 2 falls in the last year or 1 fall with injury or currently using an Ambulatory Assistive Device (Walker, Cane, Wheelchair, Crutches, etc.)? No PATIENT GENDER DATA: Female. status: : No status: NO. PATIENT RELEVANT IMPLANT DATA REVIEWED: Yes ALLERGIES: Reviewed and unchanged CONTRAST ALLERGY: NO. EXAM: CT -CONTRAST INDUCED NEPHROPATHY RISK FACTORS: Patient age > 60 years CREATININE: Creatinine Date Value Ref Range Status 05/27/2023 0.81 0.58 - 0.96 mg/dL Final 12/02/2022 0.79 0.58 - 0.96 mg/dL Final 02/11/2021 0.84 0.6 - 1.3 MG/DL Final Estimated Glomerular Filtration Rate Date Value Ref Range Status 05/27/2023 77 >=60 mL/min/1.73m? Final Comment: Estimated Glomerular Filtration Rate (eGFR) is calculated using the 2020 CKD-EPI creatinine equation. This equation utilizes serum creatinine, sex, and age as parameters. The creatinine assay has traceable calibration to isotope dilution-mass spectrometry. Refer to KDIGO guidelines for clinical interpretation. In patients with unstable renal function, e.g. those with acute kidney injury, the eGFR may not accurately reflect actual GFR. eGFR- Date Value Ref Range Status 01/28/2021 >60 Final P.O.C.T. RESULTS: POC done: Yes, See Lab Tab June 10, 2023 TREATMENT: N/A PERIPHERAL IV DATA: Ambulatory: A peripheral IV was started in the Left antecubital site with a Angio cath: 22 gauge. RADIOLOGY DEPARTMENT: CT; Exam(s) Completed: Rt clavicle with iv contrast SIGNATURE: RT Kurt(R) PATIENT NAME: Marianela Bashir DATE: June 10, 2023 TIME: 1:[address] [facility] 06-10-2023 History of Present illness Narrative Radiology Service Progress Note DATE OF SERVICE: June 10, 2023 TIME: 1:35 PM PATIENT IDENTITY VERIFICATION COMPLETED USING TWO (2) STANDARD IDENTIFIERS: Name and Date of confirmed by patient verbally. FALL SCREENING: Has the patient had 2 falls in the last year or 1 fall with injury or currently using an Ambulatory Assistive Device (Walker, Cane, Wheelchair, Crutches, etc.)? No PATIENT GENDER DATA: Female. status: : No status: NO. PATIENT RELEVANT IMPLANT DATA REVIEWED: Yes ALLERGIES: Reviewed and unchanged CONTRAST ALLERGY: NO. EXAM: CT -CONTRAST INDUCED NEPHROPATHY RISK FACTORS: Patient age > 60 years CREATININE: Creatinine Date Value Ref Range Status 05/27/2023 0.81 0.58 - 0.96 mg/dL Final 12/02/2022 0.79 0.58 - 0.96 mg/dL Final 02/11/2021 0.84 0.6 - 1.3 MG/DL Final Estimated Glomerular Filtration Rate Date Value Ref Range Status 05/27/2023 77 >=60 mL/min/1.73m Final Comment: Estimated Glomerular Filtration Rate (eGFR) is calculated using the 2020 CKD-EPI creatinine equation. This equation utilizes serum creatinine, sex, and age as parameters. The creatinine assay has traceable calibration to isotope dilution-mass spectrometry. Refer to KDIGO guidelines for clinical interpretation. In patients with unstable renal function, e.g. those with acute kidney injury, the eGFR may not accurately reflect actual GFR. eGFR- Date Value Ref Range Status 01/28/2021 >60 Final P.O.C.T. RESULTS: POC done: Yes, See Lab Tab June 10, 2023 TREATMENT: N/A PERIPHERAL IV DATA: Ambulatory: A peripheral IV was started in the Left antecubital site with a Angio cath: 22 gauge. RADIOLOGY DEPARTMENT: CT; Exam(s) Completed: Rt clavicle with iv contrast SIGNATURE: RT Kurt(R) PATIENT NAME: Marianela Bashir DATE: June 10, 2023 TIME: 1:35 PM documented in this encounter [facility] 05-27-2023 Note HNO ID: [id number] Author: Avtar Chowdary MD Service: ? Author Type: Physician Type: Progress Notes Filed: 05/27/2023 11:46 AM Note Text: Patient presents with: 6 Month Exam HPI: Patient presents today for office visit for follow up. Noted has a prominent clavicular head on xray. Seems to be enlarging. Is sore and achy at times. No trauma, even in the pas.t HTN: Taking Amlodipine 5 mg daily and Losartan 100 mg daily Consistent with taking meds daily Rarely misses doses Does not monitor BP at home Denies chest pain and shortness of breath Denies headaches and dizziness No palpitations No syncope No edema PSYCH: Taking Escitalopram 20 mg daily for anxiety. Has some home stressors with son and grandchildren living with her. Anxiety is controlled. Moods have been good. Not a snorer. Feeling more fatigued Some weight gain. MEDICATIONS: Current Outpatient Medications Medication Sig amLODIPine (NORVASC) 5 mg tablet Take 1 tablet by mouth once daily. escitalopram oxalate (LEXAPRO) 20 mg tablet Take 1 tablet by mouth once daily. losartan (COZAAR) 100 mg tablet Take 1 tablet by mouth once daily. No current facility-administered medications for this visit. ALLERGIES: ALLERGIES Allergen Reactions Environmental [Othe* HOUSE DUST, WEEDS AND GRASSES Hctz [Thiazides] GI Upset Lisinopril cough Potassium Chloride Rash Hives Zocor [Simvastatin] vomitting PAST MEDICAL HISTORY Diagnosis Date Anxiety 10/06/2011 Diverticulosis of colon (without mention of hemorrhage) External hemorrhoids without mention of complication Personal history of poliomyelitis Unspecified essential hypertension PAST SURGICAL HISTORY Procedure Laterality Date ARTHROSCOPY KNEE DIAGNOSTIC W/WO SYNOVIAL BX SPX Arthroscopy, knee, Left COLONOSCOPY FLX DX W/COLLJ SPEC WHEN PFRMD 12/31/10 EMG 12/04/2015 [facility] - see scanned document ENDOMETRIAL ABLTJ THERMAL W/O HYSTEROSCOPIC GUID LIG/TRNSXJ FLP TUBE ABDL/VAG APPR UNI/BI Tubal ligation TONSILLECTOMY PRIMARY/SECONDARY Tonsillectomy FAMILY HISTORY Problem Relation Age of Onset Heart Mother Smoker Heart Father Smoker Emphysema Father Social History Tobacco Use Smoking status: Never Smokeless tobacco: Never Substance Use Topics Alcohol use: No Drug use: No Reviewed current medications, allergies, past medical history, surgical history, family history and social history today. REVIEW OF SYSTEMS All other reviewed and negative other than HPI. HEALTH MAINTENANCE: Reviewed health maintenance issues today VITALS: BP 146/78 Pulse 75 Ht 149.9 cm (4' 11 ) Wt 94 kg (207 lb 3.2 oz) SpO2 97% BMI 41.85 kg/m? 126/82 on recheck Last 4 Encounter Wt Readings: Date: Wt: 02/22/2023 92.2 kg (203 lb 3.2 oz) 11/27/2022 91.2 kg (201 lb) 01/28/2021 88 kg (194 lb) 09/25/2019 88.9 kg (196 lb) PHYSICAL EXAMINATION: General appearance: Well appearing, alert, in no acute distress, well-hydrated, well nourished. Skin: Skin color, texture, turgor normal, no suspicious rashes or lesions Head: Normocephalic, no masses, lesions, tenderness or abnormalities Neck: right clavicular head is slightly more prominent again. Nontender. Other deformity. No masses Lungs: Lungs clear to auscultation. No wheezing, rhonchi, rales Heart: RRR without murmur, gallop, or rubs. No ectopy Abdomen: Normal abdominal exam, Abdomen soft, non-tender. Bowel sounds normal. No masses, organomegaly Extremities: No deformities, edema, skin discoloration, clubbing or cyanosis. Good capillary refill. Musculoskeletal: No joint swelling, deformity, or tenderness ASSESSMENT/PLAN: 1. Abnormal findings on diagnostic imaging of body structures - ICD9: 793.99, ICD10: R93.89 (primary diagnosis) - get ct. Consider ortho or thoracic if changes. - CT CLAVICLE W IVCON RIGHT - IV CONTRAST (RADIOLOGY PROCEDURE) 2. Clavicle enlargement - ICD9: 733.99, ICD10: M89.319 - CT CLAVICLE W IVCON RIGHT - IV CONTRAST (RADIOLOGY PROCEDURE) 3. Clavicle pain - ICD9: 733.90, ICD10: M89.8X1 - CT CLAVICLE W IVCON RIGHT - IV CONTRAST (RADIOLOGY PROCEDURE) 4. Fatigue, unspecified type - ICD9: 780.79, ICD10: R53.83 - CBC + DIFF - SED RATE WESTERGREN - TSH BLD - BASIC METABOLIC PNL 5. HYPERTENSION Doing well. 6. Psych: Doing well. Avtar Chowdary MD [facility] 05-27-2023 History of Present illness Narrative Patient presents with: 6 Month Exam HPI: Patient presents today for office visit for follow up. Noted has a prominent clavicular head on xray. Seems to be enlarging. Is sore and achy at times. No trauma, even in the pas.t HTN: Taking Amlodipine 5 mg daily and Losartan 100 mg daily Consistent with taking meds daily Rarely misses doses Does not monitor BP at home Denies chest pain and shortness of breath Denies headaches and dizziness No palpitations No syncope No edema PSYCH: Taking Escitalopram 20 mg daily for anxiety. Has some home stressors with son and grandchildren living with her. Anxiety is controlled. Moods have been good. Not a snorer. Feeling more fatigued Some weight gain. MEDICATIONS: Current Outpatient Medications Medication Sig amLODIPine (NORVASC) 5 mg tablet Take 1 tablet by mouth once daily. escitalopram oxalate (LEXAPRO) 20 mg tablet Take 1 tablet by mouth once daily. losartan (COZAAR) 100 mg tablet Take 1 tablet by mouth once daily. No current facility-administered medications for this visit. ALLERGIES: ALLERGIES Allergen Reactions Environmental [Othe* HOUSE DUST, WEEDS AND GRASSES Hctz [Thiazides] GI Upset Lisinopril cough Potassium Chloride Rash Hives Zocor [Simvastatin] vomitting PAST MEDICAL HISTORY Diagnosis Date Anxiety 10/06/2011 Diverticulosis of colon (without mention of hemorrhage) External hemorrhoids without mention of complication Personal history of poliomyelitis Unspecified essential hypertension PAST SURGICAL HISTORY Procedure Laterality Date ARTHROSCOPY KNEE DIAGNOSTIC W/WO SYNOVIAL BX SPX Arthroscopy, knee, Left COLONOSCOPY FLX DX W/COLLJ SPEC WHEN PFRMD 12/31/10 EMG 12/04/2015 [facility] - see scanned document ENDOMETRIAL ABLTJ THERMAL W/O HYSTEROSCOPIC GUID LIG/TRNSXJ FLP TUBE ABDL/VAG APPR UNI/BI Tubal ligation TONSILLECTOMY PRIMARY/SECONDARY <AGE 12 Tonsillectomy FAMILY HISTORY Problem Relation Age of Onset Heart Mother Smoker Heart Father Smoker Emphysema Father Social History Tobacco Use Smoking status: Never Smokeless tobacco: Never Substance Use Topics Alcohol use: No Drug use: No Reviewed current medications, allergies, past medical history, surgical history, family history and social history today. REVIEW OF SYSTEMS All other reviewed and negative other than HPI. HEALTH MAINTENANCE: Reviewed health maintenance issues today VITALS: BP 146/78 Pulse 75 Ht 149.9 cm (4' 11 ) Wt 94 kg (207 lb 3.2 oz) SpO2 97% BMI 41.85 kg/m 126/82 on recheck Last 4 Encounter Wt Readings: Date: Wt: 02/22/2023 92.2 kg (203 lb 3.2 oz) 11/27/2022 91.2 kg (201 lb) 01/28/2021 88 kg (194 lb) 09/25/2019 88.9 kg (196 lb) PHYSICAL EXAMINATION: General appearance: Well appearing, alert, in no acute distress, well-hydrated, well nourished. Skin: Skin color, texture, turgor normal, no suspicious rashes or lesions Head: Normocephalic, no masses, lesions, tenderness or abnormalities Neck: right clavicular head is slightly more prominent again. Nontender. Other deformity. No masses Lungs: Lungs clear to auscultation. No wheezing, rhonchi, rales Heart: RRR without murmur, gallop, or rubs. No ectopy Abdomen: Normal abdominal exam, Abdomen soft, non-tender. Bowel sounds normal. No masses, organomegaly Extremities: No deformities, edema, skin discoloration, clubbing or cyanosis. Good capillary refill. Musculoskeletal: No joint swelling, deformity, or tenderness ASSESSMENT/PLAN: 1. Abnormal findings on diagnostic imaging of body structures - ICD9: 793.99, ICD10: R93.89 (primary diagnosis) - get ct. Consider ortho or thoracic if changes. - CT CLAVICLE W IVCON RIGHT - IV CONTRAST (RADIOLOGY PROCEDURE) 2. Clavicle enlargement - ICD9: 733.99, ICD10: M89.319 - CT CLAVICLE W IVCON RIGHT - IV CONTRAST (RADIOLOGY PROCEDURE) 3. Clavicle pain - ICD9: 733.90, ICD10: M89.8X1 - CT CLAVICLE W IVCON RIGHT - IV CONTRAST (RADIOLOGY PROCEDURE) 4. Fatigue, unspecified type - ICD9: 780.79, ICD10: R53.83 - CBC + DIFF - SED RATE WESTERGREN - TSH BLD - BASIC METABOLIC PNL 5. HYPERTENSION Doing well. 6. Psych: Doing well. Avtar Chowdary MD documented in this encounter [facility] 03-09-2023 Miscellaneous Notes March 10, 2023 PID: [id number] Marianela Bashir [address] [place] [address] Dear Ms. Bashir, We are pleased to inform you that the results of your recent breast imaging exam on 03/08/2023 are normal. Your mammogram demonstrates that you have dense breast tissue, which could hide abnormalities. Dense breast tissue, in and of itself, is a relatively common condition. Therefore, this information is not provided to cause undue concern; rather, it is to raise your awareness and promote discussion with your health care provider regarding the presence of dense breast tissue in addition to other risk factors. Early detection of cancer is very important. We also understand recommendations regarding breast cancer screening are controversial. Please discuss with your primary care provider which strategy is best for you and whether a mammogram is right for you. Your imaging studies and report will be kept on file at [facility] as part of your permanent medical record and are available for your continuing care. Thank you for allowing us to help in meeting your health care needs. Sincerely, Dr. Hernandez Interpreting Radiologist [facility] (Normal over 40) documented in this encounter [facility] 02-26-2023 Note HNO ID: [id number] Author: Meka Grove APRN.PMP Service: ? Author Type: Nurse Practitioner Type: Progress Notes Filed: 02/26/2023 4:39 PM Note Text: This is a 72 year old female who presents today with: Patient presents with: Recheck: 1 month BP check HISTORY OF PRESENT ILLNESS: Marianela Bashir is a 72 year old female. Patient presents with: Recheck: 1 month BP check Patient presents today for blood pressure check. She had amlodipine added to her medication regimen a month ago. HTN: Patient is compliant with meds Yes Monitors bp at home: Yes. Denies side effects: No. Chest pain: No. Dyspnea: No. Edema: No. Palpitations: No. Syncope: No. Headache: No. Dizziness: No. PAST MEDICAL HISTORY: PAST MEDICAL HISTORY Diagnosis Date Anxiety 10/06/2011 Diverticulosis of colon (without mention of hemorrhage) External hemorrhoids without mention of complication Personal history of poliomyelitis Unspecified essential hypertension PAST SURGICAL HISTORY Procedure Laterality Date ARTHROSCOPY KNEE DIAGNOSTIC W/WO SYNOVIAL BX SPX Arthroscopy, knee, Left COLONOSCOPY FLX DX W/COLLJ SPEC WHEN PFRMD 12/31/10 EMG 12/04/2015 [facility] - see scanned document ENDOMETRIAL ABLTJ THERMAL W/O HYSTEROSCOPIC GUID LIG/TRNSXJ FLP TUBE ABDL/VAG APPR UNI/BI Tubal ligation TONSILLECTOMY PRIMARY/SECONDARY Tonsillectomy ALLERGIES Environmental [Other], Hctz [Thiazides], Lisinopril, Potassium Chloride, and Zocor [Simvastatin] MEDICATIONS Current Outpatient Medications Medication Sig amLODIPine (NORVASC) 5 mg tablet Take 1 tablet by mouth once daily. escitalopram oxalate (LEXAPRO) 20 mg tablet Take 1 tablet by mouth once daily. losartan (COZAAR) 100 mg tablet Take 1 tablet by mouth once daily. No current facility-administered medications for this visit. FAMILY HISTORY Problem Relation Age of Onset Heart Mother Smoker Heart Father Smoker Emphysema Father Social History Tobacco Use Smoking status: Never Smokeless tobacco: Never Substance Use Topics Alcohol use: No Drug use: No EXAM: BP 124/78 Pulse 68 Resp 18 SpO2 97% PHYSICAL EXAM: General Appearance: Well appearing, alert, in no acute distress, well-hydrated, well nourished.. Skin: Skin color, texture, turgor normal, no suspicious rashes or lesions. Head: Normocephalic, no masses, lesions, tenderness or abnormalities. Eyes: Anicteric sclera. Extraocular movements are intact. . Neck: Supple, no adenopathy. no bruits. Lungs: Lungs clear to auscultation. No wheezing, rhonchi, rales.. Heart: RRR without murmur, gallop, or rubs. No ectopy. Extremities: No deformities, edema, skin discoloration, clubbing or cyanosis. Good capillary refill. Neurologic: Gait normal. ASSESSMENT/PLAN: 1. Primary hypertension - ICD9: 401.9, ICD10: I10 (primary diagnosis) - good control - Continue current medication(s) - Recommended regular aerobic exercise. - Recommend home blood pressure monitoring, to bring results in on next visit - Goal of BP <130/80 - AMLODIPINE 5 MG TABLET 2. Situational anxiety - ICD9: 300.09, ICD10: F41.8 Refill: - ESCITALOPRAM 20 MG TABLET 3. Essential hypertension, benign - ICD9: 401.1, ICD10: I10 - good control - Continue current medication(s) - Recommended regular aerobic exercise. - Recommend home blood pressure monitoring, to bring results in on next visit - Goal of BP <130/80 - LOSARTAN 100 MG TABLET Discussed treatment plan and patient voices understanding. Patient's questions answered appropriately. Medications and potential side effects were discussed and patient voices understanding. Return to the office as scheduled or as needed for worsening/no improvement. Meka Grove APRN.ILAN This note was partially generated using [employer] voice recognition system. Note was reviewed for accuracy. There may be minor misspellings or grammar miscues with [employer] voice recognition. [facility] 02-26-2023 Instructions Meka Grove APRN.CNP - 02/26/2023 1:45 PM EDT Continue the same medication. Recheck as scheduled. documented in this encounter [facility] 02-26-2023 History of Present illness Narrative This is a 72 year old female who presents today with: Patient presents with: Recheck: 1 month BP check HISTORY OF PRESENT ILLNESS: Marianela Bashir is a 72 year old female. Patient presents with: Recheck: 1 month BP check Patient presents today for blood pressure check. She had amlodipine added to her medication regimen a month ago. HTN: Patient is compliant with meds Yes Monitors bp at home: Yes. Denies side effects: No. Chest pain: No. Dyspnea: No. Edema: No. Palpitations: No. Syncope: No. Headache: No. Dizziness: No. PAST MEDICAL HISTORY: PAST MEDICAL HISTORY Diagnosis Date Anxiety 10/06/2011 Diverticulosis of colon (without mention of hemorrhage) External hemorrhoids without mention of complication Personal history of poliomyelitis Unspecified essential hypertension PAST SURGICAL HISTORY Procedure Laterality Date ARTHROSCOPY KNEE DIAGNOSTIC W/WO SYNOVIAL BX SPX Arthroscopy, knee, Left COLONOSCOPY FLX DX W/COLLJ SPEC WHEN PFRMD 12/31/10 EMG 12/04/2015 [facility] - see scanned document ENDOMETRIAL ABLTJ THERMAL W/O HYSTEROSCOPIC GUID LIG/TRNSXJ FLP TUBE ABDL/VAG APPR UNI/BI Tubal ligation TONSILLECTOMY PRIMARY/SECONDARY <AGE 12 Tonsillectomy ALLERGIES Environmental [Other], Hctz [Thiazides], Lisinopril, Potassium Chloride, and Zocor [Simvastatin] MEDICATIONS Current Outpatient Medications Medication Sig amLODIPine (NORVASC) 5 mg tablet Take 1 tablet by mouth once daily. escitalopram oxalate (LEXAPRO) 20 mg tablet Take 1 tablet by mouth once daily. losartan (COZAAR) 100 mg tablet Take 1 tablet by mouth once daily. No current facility-administered medications for this visit. FAMILY HISTORY Problem Relation Age of Onset Heart Mother Smoker Heart Father Smoker Emphysema Father Social History Tobacco Use Smoking status: Never Smokeless tobacco: Never Substance Use Topics Alcohol use: No Drug use: No EXAM: BP 124/78 Pulse 68 Resp 18 SpO2 97% PHYSICAL EXAM: General Appearance: Well appearing, alert, in no acute distress, well-hydrated, well nourished.. Skin: Skin color, texture, turgor normal, no suspicious rashes or lesions. Head: Normocephalic, no masses, lesions, tenderness or abnormalities. Eyes: Anicteric sclera. Extraocular movements are intact. . Neck: Supple, no adenopathy. no bruits. Lungs: Lungs clear to auscultation. No wheezing, rhonchi, rales.. Heart: RRR without murmur, gallop, or rubs. No ectopy. Extremities: No deformities, edema, skin discoloration, clubbing or cyanosis. Good capillary refill. Neurologic: Gait normal. ASSESSMENT/PLAN: 1. Primary hypertension - ICD9: 401.9, ICD10: I10 (primary diagnosis) - good control - Continue current medication(s) - Recommended regular aerobic exercise. - Recommend home blood pressure monitoring, to bring results in on next visit - Goal of BP <130/80 - AMLODIPINE 5 MG TABLET 2. Situational anxiety - ICD9: 300.09, ICD10: F41.8 Refill: - ESCITALOPRAM 20 MG TABLET 3. Essential hypertension, benign - ICD9: 401.1, ICD10: I10 - good control - Continue current medication(s) - Recommended regular aerobic exercise. - Recommend home blood pressure monitoring, to bring results in on next visit - Goal of BP <130/80 - LOSARTAN 100 MG TABLET Discussed treatment plan and patient voices understanding. Patient's questions answered appropriately. Medications and potential side effects were discussed and patient voices understanding. Return to the office as scheduled or as needed for worsening/no improvement. Meka Grove APRN.PMP This note was partially generated using [employer] voice recognition system. Note was reviewed for accuracy. There may be minor misspellings or grammar miscues with [employer]oompark[employer] voice recognition. documented in this encounter [facility] 02-25-2023 Miscellaneous Notes CD/report READY FOR SOLUTIONS DEVELOPMENT ANALYST AT [facility] [place] [facility] L/m for pt Patient is requesting disc and report of X-rays from 02/22/23. Please notify the patient when they are ready for picker operator. Thank you. documented in this encounter [facility] 02-24-2023 Miscellaneous Notes Spoke with patient and informed of result. She verbalized understanding. Anita Petersen Xray shows what is mainly degenerative changes in the shoulder. Did she ever dislocate the shoulder.. would refer to ortho. I think she has seen [facility] in the past. The clavicle just looks like the bone is very large where it is sticking out. We could consider further imaging of her clavicle if it enlarges. documented in this encounter [facility] 02-22-2023 Note HNO ID: [id number] Author: RT Suleiman(R) Service: Nuclear Medicine Author Type: Technologist Type: Progress Notes Filed: 02/22/2023 12:38 PM Note Text: Radiology Service Progress Note PATIENT NAME: Marianela Bashir DATE OF SERVICE: February 22, 2023 TIME: 12:18 PM PATIENT IDENTITY VERIFICATION COMPLETED USING TWO (2) IDENTIFIERS: Name and Date of confirmed by patient verbally. FALL SCREENING: Has the patient had 2 falls in the last year or 1 fall with injury or currently using an Ambulatory Assistive Device (Walker, Cane, Wheelchair, Crutches, etc.)? No PATIENT GENDER DATA: Female. status: : No status: NO. PATIENT RELEVANT IMPLANT DATA REVIEWED: Not Applicable RADIOLOGY DEPARTMENT: General X-ray: Exam(s) Completed: Upper Extremity X-Ray(s): Shoulder, AP / TRUE AP / AXILLARY right and steroclavicular joints 3 v PERIPHERAL IV DATA: Not applicable SIGNED BY: RT Suleiman(R) February 22, 2023 12:[address] [facility] 02-22-2023 Note HNO ID: [id number] Author: Avtar Chowdary MD Service: ? Author Type: Physician Type: Progress Notes Filed: 02/22/2023 12:05 PM Note Text: Patient presents with: Lump HPI: Patient presents today for office visit for lump she's noticed on the right side of her clavicle since February 13. Lump does not cause any pain. Having trouble with pain throughout left shoulder and down back of neck. Cannot lift anything heavy. X-ray and MRI completed and were normal. Dr. Wright with [facility] suggested ultrasound. Had been seeing [facility] for neck and back pain. Had a normal MRI of her neck. Pain started after she lifted some water bottles. Lump is not hot or red. Not tender to touch. He offered to inject her shoulder. Her neck will crack. No numbness or tingling down the arm. No new cough or shortness of breath. No swollen glands. MEDICATIONS: Current Outpatient Medications Medication Sig amLODIPine (NORVASC) 5 mg tablet Take 1 tablet by mouth once daily. escitalopram oxalate (LEXAPRO) 20 mg tablet Take 1 tablet by mouth once daily. losartan (COZAAR) 100 mg tablet Take 1 tablet by mouth once daily. No current facility-administered medications for this visit. ALLERGIES: ALLERGIES Allergen Reactions Environmental [Othe* HOUSE DUST, WEEDS AND GRASSES Hctz [Thiazides] GI Upset Lisinopril cough Potassium Chloride Rash Hives Zocor [Simvastatin] vomitting PAST MEDICAL HISTORY Diagnosis Date Anxiety 10/06/2011 Diverticulosis of colon (without mention of hemorrhage) External hemorrhoids without mention of complication Personal history of poliomyelitis Unspecified essential hypertension PAST SURGICAL HISTORY Procedure Laterality Date ARTHROSCOPY KNEE DIAGNOSTIC W/WO SYNOVIAL BX SPX Arthroscopy, knee, Left COLONOSCOPY FLX DX W/COLLJ SPEC WHEN PFRMD 12/31/10 EMG 12/04/2015 [facility] - see scanned document ENDOMETRIAL ABLTJ THERMAL W/O HYSTEROSCOPIC GUID LIG/TRNSXJ FLP TUBE ABDL/VAG APPR UNI/BI Tubal ligation TONSILLECTOMY PRIMARY/SECONDARY Tonsillectomy FAMILY HISTORY Problem Relation Age of Onset Heart Mother Smoker Heart Father Smoker Emphysema Father Social History Tobacco Use Smoking status: Never Smokeless tobacco: Never Substance Use Topics Alcohol use: No Drug use: No Reviewed current medications, allergies, past medical history, surgical history, family history and social history today. REVIEW OF SYSTEMS All other reviewed and negative other than HPI. HEALTH MAINTENANCE: Reviewed health maintenance issues today and recommended the following in detail. COLORECTAL CANCER SCREENING due on 12/31/2020 MAMMOGRAM - she cancelled mammogram. ADVANCE DIRECTIVE DISCUSSION - on file. VITALS: BP 128/81 Pulse 76 Ht 149.9 cm (4' 11 ) Wt 92.2 kg (203 lb 3.2 oz) BMI 41.04 kg/m? Last 4 Encounter Wt Readings: Date: Wt: 11/27/2022 91.2 kg (201 lb) 01/28/2021 88 kg (194 lb) 09/25/2019 88.9 kg (196 lb) 08/04/2019 88.9 kg (196 lb) PHYSICAL EXAMINATION: General appearance: Well appearing, alert, in no acute distress, well-hydrated, well nourished. Skin: Skin color, texture, turgor normal, no suspicious rashes or lesions Neck: Supple, no adenopathy; thyroid symmetric, normal size, no bruits Neck not tender. Has a prominent sternoclavicular joint on the right. Lungs: Lungs clear to auscultation. No wheezing, rhonchi, rales Heart: RRR without murmur, gallop, or rubs. No ectopy Abdomen: Normal abdominal exam, Abdomen soft, non-tender. Bowel sounds normal. No masses, organomegaly Extremities: No deformities, edema, skin discoloration, clubbing or cyanosis. Good capillary refill. Shoulder Joint: normal range of motion. Neg empty can. No signs of impingement. Normal neurovascular exam. ASSESSMENT/PLAN: 1. Essential hypertension, benign - ICD9: 401.1, ICD10: I10 (primary diagnosis) - good control - Continue current medication(s) - Goal of BP <130/80 2. Enlargement of sternoclavicular joint, right - ICD9: 719.81, ICD10: M25.811 - start with xray - XR STERNOCLAVICULAR JOINTS 3V AP/BOTH OBLS 3. Chronic right shoulder pain - ICD9: 719.41, 338.29, ICD10: M25.511, G89.29 - consider therapy. Red flags for re-assessment reviewed with patient in detail. - XR SHOULDER GENERAL 3V OR MORE AP/TRUE AP/OTHER RIGHT - CONSULT TO PHYSICAL THERAPY 4. Screening for colon cancer - ICD9: V76.51, ICD10: Z12.11 - COLOGUARD Avtar Chowdary MD [facility] 02-22-2023 History of Present illness Narrative Patient presents with: Lump HPI: Patient presents today for office visit for lump she's noticed on the right side of her clavicle since February 13. Lump does not cause any pain. Having trouble with pain throughout left shoulder and down back of neck. Cannot lift anything heavy. X-ray and MRI completed and were normal. Dr. Wright with [facility] suggested ultrasound. Had been seeing [facility] for neck and back pain. Had a normal MRI of her neck. Pain started after she lifted some water bottles. Lump is not hot or red. Not tender to touch. He offered to inject her shoulder. Her neck will crack. No numbness or tingling down the arm. No new cough or shortness of breath. No swollen glands. MEDICATIONS: Current Outpatient Medications Medication Sig amLODIPine (NORVASC) 5 mg tablet Take 1 tablet by mouth once daily. escitalopram oxalate (LEXAPRO) 20 mg tablet Take 1 tablet by mouth once daily. losartan (COZAAR) 100 mg tablet Take 1 tablet by mouth once daily. No current facility-administered medications for this visit. ALLERGIES: ALLERGIES Allergen Reactions Environmental [Othe* HOUSE DUST, WEEDS AND GRASSES Hctz [Thiazides] GI Upset Lisinopril cough Potassium Chloride Rash Hives Zocor [Simvastatin] vomitting PAST MEDICAL HISTORY Diagnosis Date Anxiety 10/06/2011 Diverticulosis of colon (without mention of hemorrhage) External hemorrhoids without mention of complication Personal history of poliomyelitis Unspecified essential hypertension PAST SURGICAL HISTORY Procedure Laterality Date ARTHROSCOPY KNEE DIAGNOSTIC W/WO SYNOVIAL BX SPX Arthroscopy, knee, Left COLONOSCOPY FLX DX W/COLLJ SPEC WHEN PFRMD 12/31/10 EMG 12/04/2015 [facility] - see scanned document ENDOMETRIAL ABLTJ THERMAL W/O HYSTEROSCOPIC GUID LIG/TRNSXJ FLP TUBE ABDL/VAG APPR UNI/BI Tubal ligation TONSILLECTOMY PRIMARY/SECONDARY <AGE 12 Tonsillectomy FAMILY HISTORY Problem Relation Age of Onset Heart Mother Smoker Heart Father Smoker Emphysema Father Social History Tobacco Use Smoking status: Never Smokeless tobacco: Never Substance Use Topics Alcohol use: No Drug use: No Reviewed current medications, allergies, past medical history, surgical history, family history and social history today. REVIEW OF SYSTEMS All other reviewed and negative other than HPI. HEALTH MAINTENANCE: Reviewed health maintenance issues today and recommended the following in detail. COLORECTAL CANCER SCREENING due on 12/31/2020 MAMMOGRAM - she cancelled mammogram. ADVANCE DIRECTIVE DISCUSSION - on file. VITALS: BP 128/81 Pulse 76 Ht 149.9 cm (4' 11 ) Wt 92.2 kg (203 lb 3.2 oz) BMI 41.04 kg/m Last 4 Encounter Wt Readings: Date: Wt: 11/27/2022 91.2 kg (201 lb) 01/28/2021 88 kg (194 lb) 09/25/2019 88.9 kg (196 lb) 08/04/2019 88.9 kg (196 lb) PHYSICAL EXAMINATION: General appearance: Well appearing, alert, in no acute distress, well-hydrated, well nourished. Skin: Skin color, texture, turgor normal, no suspicious rashes or lesions Neck: Supple, no adenopathy; thyroid symmetric, normal size, no bruits Neck not tender. Has a prominent sternoclavicular joint on the right. Lungs: Lungs clear to auscultation. No wheezing, rhonchi, rales Heart: RRR without murmur, gallop, or rubs. No ectopy Abdomen: Normal abdominal exam, Abdomen soft, non-tender. Bowel sounds normal. No masses, organomegaly Extremities: No deformities, edema, skin discoloration, clubbing or cyanosis. Good capillary refill. Shoulder Joint: normal range of motion. Neg empty can. No signs of impingement. Normal neurovascular exam. ASSESSMENT/PLAN: 1. Essential hypertension, benign - ICD9: 401.1, ICD10: I10 (primary diagnosis) - good control - Continue current medication(s) - Goal of BP <130/80 2. Enlargement of sternoclavicular joint, right - ICD9: 719.81, ICD10: M25.811 - start with xray - XR STERNOCLAVICULAR JOINTS 3V AP/BOTH OBLS 3. Chronic right shoulder pain - ICD9: 719.41, 338.29, ICD10: M25.511, G89.29 - consider therapy. Red flags for re-assessment reviewed with patient in detail. - XR SHOULDER GENERAL 3V OR MORE AP/TRUE AP/OTHER RIGHT - CONSULT TO PHYSICAL THERAPY 4. Screening for colon cancer - ICD9: V76.51, ICD10: Z12.11 - COLOGUARD Avtar Chowdary MD documented in this encounter [facility] 01-25-2023 Miscellaneous Notes Pt notified of 's message concerning new medication and f/u appt. Follow up appt scheduled. Alyson Mcintosh LPN Left message for patient to call and speak with nurses. Add amlodipine. Follow up with myself or Meka in one month Manual Readin/101 Pulse: 65 BP Ishmael average: 161/92 P: 66 Repeat BP Check: 166/101 P73 #1 154/93 P71 #2 158/92 P60 #3 163/91 P61 #4 159/90 P65 #5 166/82 P63 #6 Reason for blood pressure check - Last BP elevated and Medication adjustment Patient is: Taking medication as prescribed Yes Took medication today Yes If no, date medication last taken N/A Experiencing side effects No BP continued to be elevated at nurse visit 12/28/22. Losartan was increased to 100mg daily. Tolerating medication well. Reports that she is not having any issues with nose bleeds. Denies any chest pain, shortness of breath, dizziness, or headaches. Daily caffeine use. No personal history of tobacco use; no current exposure. Alert and oriented. Pt has been identified by name and birthdate: Yes Allergies reviewed: Yes Latex allergy: no. Medication - prescribed and OTC reviewed and updated: Yes Do you need any prescription refills prior to your next visit: No Health Maintenance: Reviewed and not up to date and provider notified Patient advised that she would be contacted after review by PCP. Luiza Dobbins LPN documented in this encounter [facility] 01-25-2023 Note HNO ID: [id number] Author: Luiza Dobbins LPN Service: ? Author Type: ? Type: Progress Notes Filed: 01/25/2023 9:25 AM Note Text: Manual Readin/101 Pulse: 65 BP Ishmael average: 161/92 P: 66 Repeat BP Check: 166/101 P73 #1 154/93 P71 #2 158/92 P60 #3 163/91 P61 #4 159/90 P65 #5 166/82 P63 #6 Reason for blood pressure check - Last BP elevated and Medication adjustment Patient is: Taking medication as prescribed Yes Took medication today Yes If no, date medication last taken N/A Experiencing side effects No BP continued to be elevated at nurse visit 12/28/22. Losartan was increased to 100mg daily. Tolerating medication well. Reports that she is not having any issues with nose bleeds. Denies any chest pain, shortness of breath, dizziness, or headaches. Daily caffeine use. No personal history of tobacco use; no current exposure. Alert and oriented. Pt has been identified by name and birthdate: Yes Allergies reviewed: Yes Latex allergy: no. Medication - prescribed and OTC reviewed and updated: Yes Do you need any prescription refills prior to your next visit: No Health Maintenance: Reviewed and not up to date and provider notified Patient advised that she would be contacted after review by PCP. Luiza Dobbins LPN [facility] 01-13-2023 Miscellaneous Notes Patient phones requesting refills as follows: Requested Prescriptions Pending Prescriptions Disp Refills escitalopram oxalate (LEXAPRO) 20 mg tablet 90 tablet 0 Sig: Take 1 tablet by mouth once daily. LOLY-11/27/22 Labs-12/02/22 NOV-05/27/23 Please review and advise. Alma Rea LPN documented in this encounter [facility] 12-28-2022 Note HNO ID: [id number] Author: Luiza Dobbins LPN Service: ? Author Type: ? Type: Progress Notes Filed: 12/28/2022 9:37 AM Note Text: Manual Readin/95 Pulse: 67 BP Ishmael average: 161/91 P: 63 Repeat BP Check: 168/102 P58 #1 167/96 P60 #2 155/88 P65 #3 157/91 P68 #4 162/85 P65 #5 159/82 P60 #6 Reason for blood pressure check - Last BP elevated and Medication adjustment Patient is: Taking medication as prescribed Yes Took medication today No If no, date medication last taken 12/27/22 Experiencing side effects No BP was elevated at last appt 11/27/22. Was started on Losartan 50mg daily. Tolerating medication. States that she takes her medication mid morning; has not had it yet today. Also, she was seen at [facility] ER on 12/25/22 for epistaxis. BP while there was 196/110. Denies any chest pain, shortness of breath, or dizziness. Has been having headaches every morning that last until she gets up moving around and takes her medication. Daily caffeine use. No personal history of tobacco use; no current exposure. Alert and oriented. Pt has been identified by name and birthdate: Yes Allergies reviewed: Yes Latex allergy: no. Medication - prescribed and OTC reviewed and updated: Yes Do you need any prescription refills prior to your next visit: No Health Maintenance: Reviewed and not up to date and provider notified Patient advised that she would be contacted after review by Dr director of pulmonary unit. Luiza Dobbins LPN [facility] 12-28-2022 History of Present illness Narrative Manual Readin/95 Pulse: 67 BP Ishmael average: 161/91 P: 63 Repeat BP Check: 168/102 P58 #1 167/96 P60 #2 155/88 P65 #3 157/91 P68 #4 162/85 P65 #5 159/82 P60 #6 Reason for blood pressure check - Last BP elevated and Medication adjustment Patient is: Taking medication as prescribed Yes Took medication today No If no, date medication last taken 12/27/22 Experiencing side effects No BP was elevated at last appt 11/27/22. Was started on Losartan 50mg daily. Tolerating medication. States that she takes her medication mid morning; has not had it yet today. Also, she was seen at [facility] ER on 12/25/22 for epistaxis. BP while there was 196/110. Denies any chest pain, shortness of breath, or dizziness. Has been having headaches every morning that last until she gets up moving around and takes her medication. Daily caffeine use. No personal history of tobacco use; no current exposure. Alert and oriented. Pt has been identified by name and birthdate: Yes Allergies reviewed: Yes Latex allergy: no. Medication - prescribed and OTC reviewed and updated: Yes Do you need any prescription refills prior to your next visit: No Health Maintenance: Reviewed and not up to date and provider notified Patient advised that she would be contacted after review by Dr director of pulmonary unit. Luiza Dobbins LPN documented in this encounter [facility] 12-25-2022 Miscellaneous Notes Protocol recommends ER. Patient agreeable. The nose bleed started to slow down, then became worse and reports the blood is pouring out. Patient reports BP 184/92 (70) Reason for Disposition [1] Bleeding present > 30 minutes AND [2] using correct method of direct pressure Answer Assessment - Initial Assessment Questions 1. AMOUNT OF BLEEDING: Nose bleed started about 15 - 20 min ago. Woke up with a SHANKS, blew nose and it started bleeding. Has 3 large blood clots (1st one size of 50 cent piece, other 2 size of quarters), used several paper towels and are soaked. Pinching nostrils and bleed is slowing down. Bleed started again when releasing paper towels. 2. ONSET: 15- 20 min ago. 3. FREQUENCY: Has had 2 nose bleeds in past 24 hours. 4. RECURRENT SYMPTOMS: Yesterday took 20 min to stop the bleeding. Pinched nostrils together. Pinching nostrils together now and it is slowing down but starts again when paper towels are released. 5. CAUSE: Patient thinks it's the losartan as it is new. 6. LOCAL FACTORS: No cold symptoms. No rubbing or picking nose. No sore inside nose. 7. SYSTEMIC FACTORS: Takes losartan for high BP. Losartan is new- since 11-27. Yesterday BP 159/90 8. BLOOD THINNERS: No blood thinners. 9. OTHER SYMPTOMS: No lightheadedness or dizziness. No other symptoms. SHANKS is gone. 10. : No Protocols used: [id number] documented in this encounter [facility] 12-24-2022 Note Patient Outreach (ROMEO MCKENNA) MARIANELA BASHIR ([id number]) 1950 F Date Time Provider Department 12/24/22 MORIAH REYES During your visit today, we recorded the following information about you: Moriah Reyes MA 12/24/2022 1:45 PM Signed POPULATION HEALTH NAVIGATION OUTREACH Action/FYI LVM MYCHART SENT MEDICARE WELLNESS BP CONTROLLED (<130/80) Never done COLORECTAL CANCER SCREENING due on 12/31/2020 MAMMOGRAM due on 01/28/2021 Patient Identified by Name and : NO Outreach Outcome/Action Unable to reach patient: Left message MyChart message sent Did you use a PCP flex slot to schedule this appointment? N/A Reason for Outreach Care Gap or Scheduling/Wellness visits Payer: Payor: MEDICARE / Plan: MEDICARE A AND B / Product Type: Medicare / Care Gap Reviewed:: Annual Wellness visit Breast Cancer screening Controlling Blood Pressure Colorectal Cancer Screening Reminder: Reminder note to check Health Maintenance for items below Health Maintenance items due: BP CONTROLLED (<130/80) Never done COLORECTAL CANCER SCREENING due on 12/31/2020 MAMMOGRAM due on 01/28/2021 ADVANCE DIRECTIVE DISCUSSION Never done Navigation Signature: Moriah Reyes MA December 24, 2022 8:50 AM Allergies As of Date: 12/24/2022 Noted Allergy Reaction ENVIRONMENTAL [Other] 07/15/2005 Comments: HOUSE DUST, WEEDS AND GRASSES HCTZ (THIAZIDES) 12/07/2016 8 - GI Upset LISINOPRIL 03/31/2010 Comments: cough POTASSIUM CHLORIDE 01/27/2019 2 - Rash Comments: Hives ZOCOR (SIMVASTATIN) 07/09/2010 Comments: vomitting Date Reviewed: 11/27/2022 Reviewed by: Anita Petersen - Fully Assessed Reason for Visit: Population Health Navigation Outreach [3910] Cmt: ACO PAWAN PCSA Prescriptions as of 12/24/2022 - losartan (COZAAR) 50 mg tablet Take 1 tablet by mouth once daily. - escitalopram oxalate (LEXAPRO) 20 mg tablet Take 1 tablet by mouth once daily. 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 12-24-2022 Note HNO ID: [id number] Author: Moriah Reyes MA Service: ? Author Type: Eligibility Supervisor Type: Progress Notes Filed: 12/24/2022 1:45 PM Note Text: POPULATION HEALTH NAVIGATION OUTREACH Action/[employer]ar[employer] SENT MEDICARE WELLNESS BP CONTROLLED (<130/80) Never done COLORECTAL CANCER SCREENING due on 12/31/2020 MAMMOGRAM due on 01/28/2021 Patient Identified by Name and : NO Outreach Outcome/Action Unable to reach patient: Left message Peeridea message sent Did you use a PCP flex slot to schedule this appointment? N/A Reason for Outreach Care Gap or Scheduling/Wellness visits Payer: Payor: MEDICARE / Plan: MEDICARE A AND B / Product Type: Medicare / Care Gap Reviewed:: Annual Wellness visit Breast Cancer screening Controlling Blood Pressure Colorectal Cancer Screening Reminder: Reminder note to check Health Maintenance for items below Health Maintenance items due: BP CONTROLLED (<130/80) Never done COLORECTAL CANCER SCREENING due on 12/31/2020 MAMMOGRAM due on 01/28/2021 ADVANCE DIRECTIVE DISCUSSION Never done Navigation Signature: Moriah Reyes MA December 24, 2022 8:[address] [facility] 12-24-2022 History of Present illness Narrative POPULATION HEALTH NAVIGATION OUTREACH Action/FYI [employer] SENT MEDICARE WELLNESS BP CONTROLLED (<130/80) Never done COLORECTAL CANCER SCREENING due on 12/31/2020 MAMMOGRAM due on 01/28/2021 Patient Identified by Name and : NO Outreach Outcome/Action Unable to reach patient: Left message [employer] message sent Did you use a PCP flex slot to schedule this appointment? N/A Reason for Outreach Care Gap or Scheduling/Wellness visits Payer: Payor: MEDICARE / Plan: MEDICARE A AND B / Product Type: Medicare / Care Gap Reviewed:: Annual Wellness visit Breast Cancer screening Controlling Blood Pressure Colorectal Cancer Screening Reminder: Reminder note to check Health Maintenance for items below Health Maintenance items due: BP CONTROLLED (<130/80) Never done COLORECTAL CANCER SCREENING due on 12/31/2020 MAMMOGRAM due on 01/28/2021 ADVANCE DIRECTIVE DISCUSSION Never done Navigation Signature: Moriah Reyes MA December 24, 2022 8:50 AM documented in this encounter [facility] documented as of this encounter (statuses as of 11/27/2022) [facility] History of Past illness Narrative* Problem Noted Date Resolved Date Knee injury 11/27/2022 11/27/2022 Fatigue 10/06/2022 11/27/2022 Right knee pain 08/17/2019 11/27/2022 Depressive disorder, not elsewhere classified 02/25/2018 documented as of this encounter (statuses as of 12/24/2022) [facility] History of Past illness Narrative* Problem Noted Date Resolved Date Knee injury 11/27/2022 11/27/2022 Fatigue 10/06/2022 11/27/2022 Right knee pain 08/17/2019 11/27/2022 Depressive disorder, not elsewhere classified 02/25/2018 documented as of this encounter (statuses as of 12/28/2022) [facility] History of Past illness Narrative* Problem Noted Date Resolved Date Knee injury 11/27/2022 11/27/2022 Fatigue 10/06/2022 11/27/2022 Right knee pain 08/17/2019 11/27/2022 Depressive disorder, not elsewhere classified 02/25/2018 documented as of this encounter (statuses as of 01/14/2023) [facility] History of Past illness Narrative* Problem Noted Date Resolved Date Knee injury 11/27/2022 11/27/2022 Fatigue 10/06/2022 11/27/2022 Right knee pain 08/17/2019 11/27/2022 Depressive disorder, not elsewhere classified 02/25/2018 documented as of this encounter (statuses as of 01/26/2023) [facility] History of Past illness Narrative* Problem Noted Date Resolved Date Knee injury 11/27/2022 11/27/2022 Fatigue 10/06/2022 11/27/2022 Right knee pain 08/17/2019 11/27/2022 Depressive disorder, not elsewhere classified 02/25/2018 documented as of this encounter (statuses as of 02/22/2023) [facility] History of Past illness Narrative* Problem Noted Date Resolved Date Knee injury 11/27/2022 11/27/2022 Fatigue 10/06/2022 11/27/2022 Right knee pain 08/17/2019 11/27/2022 Depressive disorder, not elsewhere classified 02/25/2018 documented as of this encounter (statuses as of 02/25/2023) [facility] History of Past illness Narrative* Problem Noted Date Resolved Date Knee injury 11/27/2022 11/27/2022 Fatigue 10/06/2022 11/27/2022 Right knee pain 08/17/2019 11/27/2022 Depressive disorder, not elsewhere classified 02/25/2018 documented as of this encounter (statuses as of 02/27/2023) [facility] History of Past illness Narrative* Problem Noted Date Resolved Date Knee injury 11/27/2022 11/27/2022 Fatigue 10/06/2022 11/27/2022 Right knee pain 08/17/2019 11/27/2022 Depressive disorder, not elsewhere classified 02/25/2018 documented as of this encounter (statuses as of 03/01/2023) [facility] History of Past illness Narrative* Problem Noted Date Resolved Date Knee injury 11/27/2022 11/27/2022 Fatigue 10/06/2022 11/27/2022 Right knee pain 08/17/2019 11/27/2022 Depressive disorder, not elsewhere classified 02/25/2018 documented as of this encounter (statuses as of 03/11/2023) [facility] History of Past illness Narrative* Problem Noted Date Resolved Date Knee injury 11/27/2022 11/27/2022 Fatigue 10/06/2022 11/27/2022 Right knee pain 08/17/2019 11/27/2022 Depressive disorder, not elsewhere classified 02/25/2018 documented as of this encounter (statuses as of 03/11/2023) [facility] History of Past illness Narrative* Problem Noted Date Diagnosed Date Resolved Date Knee injury 11/27/2022 11/27/2022 Fatigue 10/06/2022 11/27/2022 Right knee pain 08/17/2019 11/27/2022 Depressive disorder, not elsewhere classified 01/21/20 07 02/25/2018 documented as of this encounter (statuses as of 05/27/2023) [facility] History of Past illness Narrative* Problem Noted Date Diagnosed Date Resolved Date Knee injury 11/27/2022 11/27/2022 Fatigue 10/06/2022 11/27/2022 Right knee pain 08/17/2019 11/27/2022 Depressive disorder, not elsewhere classified 01/21/20 07 02/25/2018 documented as of this encounter (statuses as of 06/10/2023) [facility] History of Past illness Narrative* Problem Noted Date Diagnosed Date Resolved Date Knee injury 11/27/2022 11/27/2022 Fatigue 10/06/2022 11/27/2022 Right knee pain 08/17/2019 11/27/2022 Depressive disorder, not elsewhere classified 01/21/20 07 02/25/2018 documented as of this encounter (statuses as of 06/30/2023) [facility] History of Past illness Narrative* Problem Noted Date Diagnosed Date Resolved Date Knee injury 11/27/2022 11/27/2022 Fatigue 10/06/2022 11/27/2022 Right knee pain 08/17/2019 11/27/2022 Depressive disorder, not elsewhere classified 01/21/20 07 02/25/2018 documented as of this encounter (statuses as of 08/31/2023) [facility] History of Past illness Narrative* Problem Noted Date Diagnosed Date Resolved Date Knee injury 11/27/2022 11/27/2022 Fatigue 10/06/2022 11/27/2022 Right knee pain 08/17/2019 11/27/2022 Depressive disorder, not elsewhere classified 01/21/20 07 02/25/2018 documented as of this encounter (statuses as of 09/19/2023) [facility] History of Past illness Narrative* Problem Noted Date Diagnosed Date Resolved Date Knee injury 11/27/2022 11/27/2022 Fatigue 10/06/2022 11/27/2022 Right knee pain 08/17/2019 11/27/2022 Depressive disorder, not elsewhere classified 01/21/20 07 02/25/2018 documented as of this encounter (statuses as of 09/19/2023) [facility] History of Past illness Narrative* Problem Noted Date Diagnosed Date Resolved Date Knee injury 11/27/2022 11/27/2022 Fatigue 10/06/2022 11/27/2022 Right knee pain 08/17/2019 11/27/2022 Depressive disorder, not elsewhere classified 01/21/20 07 02/25/2018 documented as of this encounter (statuses as of 11/07/2023) [facility] History of Past illness Narrative* Problem Noted Date Diagnosed Date Resolved Date Knee injury 11/27/2022 11/27/2022 Fatigue 10/06/2022 11/27/2022 Right knee pain 08/17/2019 11/27/2022 Depressive disorder, not elsewhere classified 01/21/20 07 02/25/2018 documented as of this encounter (statuses as of 12/18/2023) [facility] History of Present illness Narrative* Avtar Chowdary MD - 11/27/2022 1:03 PM EST Patient presents with: Medicare Wellness Exam HPI: Patient presents today for office visit for transferring care and getting established. Not a medicare wellness. Doing well with lexapro. Lots of stress. Uses melatonin either 3 or 5 mg at hs. No side effects No mood issues. Used to be on meds for bp. Discussed importance of complaince. No chest pain or shortness of breath. No edema. Seeing [place] [facility] and noted pain in neck and back since lifted some water bottles. Has a hx of polio and wears an afo on the right leg. Has had some falls prior. MEDICATIONS: Current Outpatient Medications Medication Sig escitalopram oxalate (LEXAPRO) 20 mg tablet Take 1 tablet by mouth once daily. No current facility-administered medications for this visit. ALLERGIES: ALLERGIES Allergen Reactions Environmental [Othe* HOUSE DUST, WEEDS AND GRASSES Hctz [Thiazides] GI Upset Lisinopril cough Potassium Chloride Rash Hives Zocor [Simvastatin] vomitting PAST MEDICAL HISTORY Diagnosis Date Anxiety 10/06/2011 Diverticulosis of colon (without mention of hemorrhage) External hemorrhoids without mention of complication Personal history of poliomyelitis Unspecified essential hypertension PAST SURGICAL HISTORY Procedure Laterality Date ARTHROSCOPY KNEE DIAGNOSTIC W/WO SYNOVIAL BX SPX Arthroscopy, knee, Left COLONOSCOPY FLX DX W/COLLJ SPEC WHEN PFRMD 12/31/10 EMG 12/04/2015 [facility] - see scanned document ENDOMETRIAL ABLTJ THERMAL W/O HYSTEROSCOPIC GUID LIG/TRNSXJ FLP TUBE ABDL/VAG APPR UNI/BI Tubal ligation TONSILLECTOMY PRIMARY/SECONDARY <AGE 12 Tonsillectomy FAMILY HISTORY Problem Relation Age of Onset Heart Mother Smoker Heart Father Smoker Emphysema Father Social History Tobacco Use Smoking status: Never Smokeless tobacco: Never Substance Use Topics Alcohol use: No Drug use: No Reviewed current medications, allergies, past medical history, surgical history, family history andsocial history today. REVIEW OF SYSTEMS RESPIRATORY: Negative for cough, hemoptysis, wheezing, COPD, dyspnea or shortness of breath GI: No nausea, vomiting, or diarrhea : No history of dysuria, frequency or incontinence CAKE KNOCKER: Negative for abnormal vaginal bleeding, abnormal vaginal discharge SKIN: Negative for lesions, rash, and itching All other reviewed and negative other than HPI. HEALTH MAINTENANCE: Reviewed health maintenance issues today and recommended the following in detail. BP CONTROLLED (<130/80) Never done COLORECTAL CANCER SCREENING due on 12/31/2020 MAMMOGRAM due on 01/28/2021 COVID-19 VACCINE(3 - Booster for [employer] series) due on 06/01/2021 INFLUENZA(1) due on 07/16/2022 ADVANCE DIRECTIVE DISCUSSION Never done Shingrix recommended. Had zostavax VITALS: BP 146/70 Pulse 66 Ht 149.9 cm (4' 11 ) Wt 91.2 kg (201 lb) SpO2 99% BMI 40.60 kg/m Last 4 Encounter Wt Readings: Date: Wt: 11/27/2022 91.2 kg (201 lb) 01/28/2021 88 kg (194 lb) 09/25/2019 88.9 kg (196 lb) 08/04/2019 88.9 kg (196 lb) PHYSICAL EXAMINATION: General appearance: Well appearing, alert, in no acute distress, well-hydrated, well nourished. Skin: Skin color, texture, turgor normal, no suspicious rashes or lesions Head: Normocephalic, no masses, lesions, tenderness or abnormalities Neck: Supple, no adenopathy; thyroid symmetric, normal size, no bruits Lungs: Lungs clear to auscultation. No wheezing, rhonchi, rales Heart: RRR without murmur, gallop, or rubs. No ectopy Abdomen: Normal abdominal exam, Abdomen soft, non-tender. Bowel sounds normal. No masses, organomegaly Extremities: No deformities, edema, skin discoloration, clubbing or cyanosis. Good capillary refill. Musculoskeletal: No joint swelling, deformity, or tenderness ASSESSMENT/PLAN: 1. Essential hypertension, benign - ICD9: 401.1, ICD10: I10 (primary diagnosis) - poor control - Continue current medication(s) - Goal of BP <130/80 - LOSARTAN 50 MG TABLET - CBC + DIFF - COMP METABOLIC PANEL 2. Encounter for immunization - ICD9: V03.89, ICD10: Z23 - INFLUENZA SEASONAL QUADRIVALENT HIGH DOSE AGE 65+ - [employer] COVID-19 BIVALENT BOOSTER VACCINE, AGE 12+ YR 3. Encounter for screening mammogram for breast cancer - ICD9: V76.12, ICD10: Z12.31 - Follow up for annual exam in one year. - MARIELA SCREENING 4. Screening for colon cancer - ICD9: V76.51, ICD10: Z12.11 - CONSULT TO GENERAL SURGERY 5. Hyperlipidemia with target LDL less than 130 - ICD9: 272.4, ICD10: E78.5 - good control - Continue current medication. - COMP METABOLIC PANEL - LIPID PANEL BASIC 6. Hypokalemia - ICD9: 276.8, ICD10: E87.6 7. Anxiety and depression - ICD9: 300.00, 311, ICD10: F41.9, F32.A - continue meds. 8. History of poliomyelitis - ICD9: V12.02, ICD10: Z86.12 - stable. 9. Morbid obesity with BMI of 40.0-44.9, adult (HCC) - ICD9: 278.01, V85.41, ICD10: E66.01, Z68.41 - stable. 10. Neuropathy of lower extremity, unspecified laterality - ICD9: 355.8, ICD10: G57.90 - no change 11. 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 Avtar Chowdary RTO in bp check in one month and rto in six months and prn. [facility] Miscellaneous Notes* Telephone Encounter - Isabel Morley Ma - 10/20/2022 9:23 AM EST Pt notified via Precogn[employer] that she needs to establish care with new provider. Advised no further refills till she has established care. Isabel Morley Ma * Telephone Encounter - Marcos Kasper MD - 10/20/2022 8:37 AM EST OK for three months (to get through the holidays) Needs appt to establish with new provider Marcos Kasper MD * Telephone Encounter - Melania Ferrara LPN - 10/20/2022 8:21 AM EST Left a message for pt to call the office to schedule with a provider taking Dr. Huizar's pts. Patient has been identified by name and date of : Yes Patient phones for refill(s): Requested Prescriptions Pending Prescriptions Disp Refills escitalopram oxalate (LEXAPRO) 20 mg tablet 90 tablet 3 Sig: Take 1 tablet by mouth once daily. Date of last office visit in primary care: 01/28/21 Last 2 Encounter Wt Readings: Date: Wt: 01/28/2021 88 kg (194 lb) 09/25/2019 88.9 kg (196 lb) Previous labs/tests for medication: Not applicable Thank you. Melania Ferrara LPN * Telephone Encounter - Kaden Polanco LPN - 10/19/2022 4:09 PM EST Routed to provider director of pulmonary unit. Kaden Polanco LPN * Telephone Encounter - Kaden Polanco LPN - 10/19/2022 4:05 PM EST Pt asking for a refill of Lexapro 20mg. Pt has not been seen since 01/28/21. Last rx was written 06/17/21 #90 with 3 refills. MC message to pt advising of need to schedule an appt to Establish Care with a new provider. Kaden Polanco LPN documented in this encounterProm[facility] Miscellaneous Notes* Telephone Encounter - Emeka Desai - 06/03/2022 9:56 AM EDT Pt is scheduled for their [facility]K US on 06/25 at [facility]. * Telephone Encounter - Shashi Young - 06/02/2022 10:12 AM EDT Called patient on 06/02/22 AT 10:13 AM to schedule their MSK US exam. No answer, left VM, 2nd attempt. * Telephone Encounter - Shashi Young - 06/01/2022 11:32 AM EDT Called patient on 06/01/22 at 11:33 am to schedule their MSK US exam. No answer, left VM. Patient called the MSK US Department back on 06/01/22 at 11:32 am. Please give this patient a call back to ensure that they receive an appointment. * Telephone Encounter - Emeka Desai - 06/01/2022 10:45 AM EDT Called patient on 06/01 at 10:45 to schedule their MSK US exam. No answer, left VM, 1st attempt. * Telephone Encounter - Admin Prachi Inman - 06/01/2022 10:24 AM EDT Visit Type: US MSK1 Visit Length: 45 OR 60 MINUTES Order Name/Protocol: PLEASE HAVE PT SIGN AUTH OF RELEASE FORM. US EXTREMITY MASS/FLUID COLLECTION RT; EVAL RT POPLITEAL SPACE AT SCIATIC NERVE FOR POSSIBLE LESION. 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 OUTSIDE ORDER SCANNED INTO CHART/BUILT IN [employer] Preferred Provider: N/A Comment: PATIENT CURRENTLY SCHEDULED FOR 06/02/22: 11:15A AT [facility] Location: MAIN CAMPUS OR [facility] Slot held: N/A documented in this encounterPromed[facility] Miscellaneous Notes* Telephone Encounter - Admin Prachi Inman - 06/01/2022 10:25 AM EDT Patient was scheduled for their MSK US exam on Wednesday06/02/22: 11:15A at [facility]. * Telephone Encounter - Emeka Desai - 06/01/2022 10:09 AM EDT Called patient on 06/01 at 10:09 to schedule their MSK US exam. No answer, left VM, 1st attempt. * Telephone Encounter - Shashi Young - 06/01/2022 8:15 AM EDT Visit Type: US MSK1 Visit Length: 45 OR 60 MINUTES Order Name/Protocol: PLEASE HAVE PT SIGN AUTH OF RELEASE FORM. US EXTREMITY MASS/FLUID COLLECTION RT; EVAL RT POPLITEAL SPACE AT SCIATIC NERVE FOR POSSIBLE LESION. 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 OUTSIDE ORDER SCANNED INTO CHART/BUILT IN [employer] Preferred Provider: N/A Comment: N/A Location: [facility] Slot held: N/A documented in this encounterPromedica [facility]06[facility] Miscellaneous Notes* Telephone Encounter - Admin Assist Deysi Inman - 05/05/2022 5:00 PM EDT Patient has been scheduled for their MSK US exam on Wednesday06/02/22: 11:15A at [facility]. * Telephone Encounter - Emeka Desai - 05/05/2022 2:37 PM EDT Called patient on 05/05 at 2:37 to schedule their MSK US exam. No answer, straight to VM, 2nd attempt. * Telephone Encounter - Emeka Desai - 05/04/2022 4:39 PM EDT Called patient on 05/04 at 4:39 to schedule their MSK US exam. No answer, straight to VM, 1st attempt. * Telephone Encounter - Emeka Desai - 05/04/2022 3:25 PM EDT Visit Type: US MSK1 Visit Length: 45 OR 60 MINUTES Order Name/Protocol: PLEASE HAVE PT SIGN AUTH OF RELEASE FORM. US EXTREMITY MASS/FLUID COLLECTION RT; EVAL RT POPLITE[place] SPACE AT SCIATIC NERVE FOR POSSIBLE LESION. 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 OUTSIDE ORDER SCANNED INTO CHART/BUILT IN TherioO Preferred Provider: N/A Comment: N/A Location: [facility] [facility] Slot held: N/A [facility] of Past illness Narrative* Problem Noted Date Resolved Date Depressive disorder, not elsewhere classified 02/25/2018 documented as of this encounter (statuses as of 05/05/2022) [address]08-2007 History of Past illness Narrative* Problem Noted Date Resolved Date Depressive disorder, not elsewhere classified 02/25/2018 documented as of this encounter (statuses as of 06/01/2022) [address]-2007 History of Past illness Narrative* Problem Noted Date Resolved Date Depressive disorder, not elsewhere classified 02/25/2018 documented as of this encounter (statuses as of 06/03/2022) [place] [address]-08-2007 History of Past illness Narrative* Problem Noted Date Resolved Date Depressive disorder, not elsewhere classified 02/25/2018 documented as of this encounter (statuses as of 10/20/2022) [facility] Situational anxiety Other anxiety states [facility] Diagnosis Essential hypertension, benign- Primary Encounter for immunization Need for other specified prophylactic vaccination against single bacterial disease Encounter for screening mammogram for breast cancer Screening for colon cancer Special screening for malignant neoplasms, colon Hyperlipidemia with target LDL less than 130 Other and unspecified hyperlipidemia Hypokalemia Hypopotassemia Anxiety and depression Dysthymic disorder History of poliomyelitis Personal history of poliomyelitis Morbid obesity with BMI of 40.0-44.9, adult (HCC) Morbid obesity Neuropathy of lower extremity, unspecified laterality Post-poliomyelitis muscular atrophy Late effects of acute poliomyelitis [facility] Diagnosis Essential hypertension, benign- Primary documented in this encounter [facility]* Diagnosis Situational anxiety Other anxiety states [facility] Diagnosis Primary hypertension- Primary Unspecified essential hypertension documented in this encounter [facility] note* Diagnosis Essential hypertension, benign- Primary Enlargement of sternoclavicular joint, right Chronic right shoulder pain Pain in joint, shoulder region Screening for colon cancer Special screening for malignant neoplasms, colon documented in this encounter [facility] note* Diagnosis Primary hypertension- Primary Unspecified essential hypertension Situational anxiety Other anxiety states Essential hypertension, benign [facility] Diagnosis Abnormal findings on diagnostic imaging of body structures- Primary Clavicle enlargement Other disorders of bone and cartilage Clavicle pain Disorder of bone and cartilage, unspecified Fatigue, unspecified type Primary hypertension Unspecified essential hypertension Situational anxiety Other anxiety states documented in this encounter [facility] note* Diagnosis Abnormal findings on diagnostic imaging of body structures Clavicle enlargement Other disorders of bone and cartilage Clavicle pain Disorder of bone and cartilage, unspecified documented in this encounter [facility] note* Diagnosis Encounter for screening mammogram for breast cancer documented in this encounter [facility] note* Diagnosis Congestive heart failure, unspecified HF chronicity, unspecified heart failure type (HCC)- Primary documented in this encounter [facility] for referral (narrative)* Diagnostic Procedure Only (Routine) - Closed Specialty Diagnoses / Procedures Referred By Berenice erickson Referred To Contact [facility] Diagnoses Encounter for screening mammogram for breast cancer Procedures MARIELA SCREENING SCREENING MAMMOGRAPHY BI 2-VIEW BREAST INC CAD Avtar Chowdary MD [address] [place] [address] [facility] [address] [place] [phone] Referral ID Status Reason Start Date Expiration Date V isits Requested Visits Authorized [id number] Closed Auto-Generate d Referral 11/27/2022 12/27/2023 1 1 [facility] for visit Narrative* Diagnostic Procedure Only (Routine) - Closed Specialty Diagnoses / Procedures Referred By Berenice erickson Referred To Contact [facility] Diagnoses Encounter for screening mammogram for breast cancer Procedures MARIELA SCREENING SCREENING MAMMOGRAPHY BI 2-VIEW BREAST INC CAD Avtar Chowdary MD [address] [place] [address] [facility] [address] [place] [address] Referral ID Status Reason Start Date Expiration Date V isits Requested Visits Authorized [id number] Closed Auto-Generate d Referral 11/27/2022 12/27/2023 1 1 [facility] Summary Purpose Family History No Family History Records FoundNo Family History Records FoundNo Family History Records FoundNo Family History Records FoundNo Family History Records Found Advance Directives No Advanced Directives Records FoundDocuments on File Type Date Recorded Patient Performance Tester Expl anation Advance Directive(s) 12/07/2016 3:52 PM Documents on File Type Date Recorded Patient Performance Tester Expl anation Advance Directive(s) 12/07/2016 3:52 PM Hospital Course Note [facility] DISCHARGE SUMMARY NAME ACCOUNT SEX AGE ADMIT DISCHARGE PT MED. RECORD# NUMBER DATE DATE TYPE MARIANELA BASHIR [id number] F [id number] 10/03/18 1 [id number] ROOM: [facility] DATE OF : 1950 DICTATING PHYSICIAN: Tamica Dent PROGRESS NOTE/DISCHARGE SUMMARY ATTENDING PHYSICIAN: Dr. Yang Wright. DATE OF ADMISSION: October 03, 2018 ESTIMATED DATE OF DISCHARGE: October 04, 2018 ADMITTING DIAGNOSES: 1. Left knee primary osteoarthritis. 2. Hypertension. 3. Polio as a child. FINAL DIAGNOSES: 1. Left knee primary osteoarthritis, status post left total knee arthroplasty. 2. Hypertension. 3. Polio as a child. HOSPITAL COURSE: The patient had an ongoing history of left knee pain. After failing conservative measures, the patient opted to proceed with left total knee replacement and underwent the above-stated procedure on October 03, 2018. She did receive perioperative antibiotics. Intraoperatively was uneventful. For details, please see the dictated operative report. She was up with physic (more content not included)... Reason for Referral Specialty Diagnoses / Procedures Referred By Berenice erickson Referred To Contact General Surgery Diagnoses Screening for colon cancer Procedures CONSULT TO GENERAL SURGERY OFFICE/OUTPATIENT [facility] MDM 60-74 MINUTES Avtar Chowdary MD [address] [place] [address] Referral ID Status Reason Start Date Expiration Date Visits Requested Visits Authorized [id number] Authorized PCP Requested Referral 11/27/2022 11/27/2023 1 1 Specialty Diagnoses / Procedures Referred By Contac t Referred To Contact [facility] Diagnoses Encounter for screening mammogram for breast cancer Procedures MARIELA SCREENING SCREENING MAMMOGRAPHY BI 2-VIEW BREAST INC CAD Avtar Chowdary MD [address] [place] [address] [facility] [address] [place] [phone] Referral ID Status Reason Start Date Expiration Date Visits Requested Visits Authorized [id number] Authorized Auto-Generat ed Referral 11/27/2022 12/27/2023 1 1 Specialty Diagnoses / Procedures Referred By Contac t Referred To Contact [facility] Diagnoses Chronic right shoulder pain Procedures CONSULT TO PHYSICAL THERAPY PHYSICAL THERAPY EVALUATION HIGH COMPLEX 45 MINS Avtar Chowdary MD [address] [place] [address] [facility] [place] [address] [place] [phone] Referral ID Status Reason Start Date Expiration Date Visits Requested Visits Authorized [id number] Authorized PCP Requested Referral Auto-Generate d Referral 02/22/2023 02/22/2024 99 99 Specialty Diagnoses / Procedures Referred By Contac t Referred To Contact XR IMAGING Diagnoses Chronic right shoulder pain Procedures XR SHOULDER GENERAL 3V OR MORE AP/TRUE AP/OTHER RIGHT RADEX SHOULDER COMPLETE MINIMUM 2 VIEWS Avtar Chowdary MD [address] [place] [address] Xr Imaging Referral ID Status Reason Start Date Expiration Date V isits Requested Visits Authorized [id number] Closed Auto-Generate d Referral 02/22/2023 03/23/2024 1 1 Specialty Diagnoses / Procedures Referred By Contac t Referred To Contact XR IMAGING Diagnoses Enlargement of sternoclavicular joint, right Procedures XR STERNOCLAVICULAR JOINTS 3V AP/BOTH OBLS RADEX A-C JOINTS BI W/WO WEIGHTED DISTRCJ Avtar Chowdary MD [address] [place] [address] Xr Imaging Referral ID Status Reason Start Date Expiration Date V isits Requested Visits Authorized [id number] Closed Auto-Generate d Referral 02/22/2023 03/23/2024 1 1 Specialty Diagnoses / Procedures Referred By Contac t Referred To Contact CT IMAGING Diagnoses Abnormal findings on diagnostic imaging of body structures Clavicle enlargement Clavicle pain Procedures CT CLAVICLE W IVCON RIGHT CT UPPER EXTREMITY W/CONTRAST MATERIAL Avtar Chowdary MD [address] [place] [address] Ct Imaging Referral ID Status Reason Start Date Expiration Date Visits Requested Visits Authorized [id number] Authorized Auto-Generat ed Referral 05/27/2023 06/25/2024 1 1 Specialty Diagnoses / Procedures Referred By Contac t Referred To Contact CT IMAGING Diagnoses Abnormal findings on diagnostic imaging of body structures Clavicle enlargement Clavicle pain Procedures CT CLAVICLE W IVCON RIGHT CT UPPER EXTREMITY W/CONTRAST MATERIAL Avtar Chowdary MD [address] [place] [address] [place] [id number] Referral ID Status Reason Start Date Expiration Date V isits Requested Visits Authorized [id number] Closed Auto-Generate d Referral 05/27/2023 06/25/2024 1 1 Additional Source Comments INFORMATION SOURCE (unrecogn ized section and content) DATE CREATED AUTHOR AUTHOR'S ORGANIZ ATION 10/26/2018 [facility] DATE CREATED AUTHOR AUTHOR'S ORGANIZ ATION 11/13/2023 [facility] DATE CREATED AUTHOR AUTHOR'S ORGANIZ ATION 11/14/2023 [facility] DATE CREATED AUTHOR AUTHOR'S ORGANIZ ATION 12/21/2023 [facility] Source Comments (unrecognize d section and content) In the event this informatio n is protected by the Federal Confidentiality of Alcohol and Drug Abuse Patient Records regulations: The Federal rules restrict any use of the information to criminally investigate or prosecute any alcohol or drug abuse patient.[facility] the event this information is protected by the Federal Confidentiality of Alcohol and Drug Abuse Patient Records regulations: The Federal rules restrict any use of the information to criminally investigate or prosecute any alcohol or drug abuse patient.[facility] the event this information is protected by the Federal Confidentiality of Alcohol and Drug Abuse Patient Records regulations: The Federal rules restrict any use of the information to criminally investigate or prosecute any alcohol or drug abuse patient.[facility] the event this information is protected by the Federal Confidentiality of Alcohol and Drug Abuse Patient Records regulations: The Federal rules restrict any use of the information to criminally investigate or prosecute any alcohol or drug abuse patient.[facility] the event this information is protected by the Federal Confidentiality of Alcohol and Drug Abuse Patient Records regulations: The Federal rules restrict any use of the information to criminally investigate or prosecute any alcohol or drug abuse patient.[facility] the event this information is protected by the Federal Confidentiality of Alcohol and Drug Abuse Patient Records regulations: The Federal rules restrict any use of the information to criminally investigate or prosecute any alcohol or drug abuse patient.[facility] the event this information is protected by the Federal Confidentiality of Alcohol and Drug Abuse Patient Records regulations: The Federal rules restrict any use of the information to criminally investigate or prosecute any alcohol or drug abuse patient.[facility] the event this information is protected by the Federal Confidentiality of Alcohol and Drug Abuse Patient Records regulations: The Federal rules restrict any use of the information to criminally investigate or prosecute any alcohol or drug abuse patient.[facility] the event this information is protected by the Federal Confidentiality of Alcohol and Drug Abuse Patient Records regulations: The Federal rules restrict any use of the information to criminally investigate or prosecute any alcohol or drug abuse patient.[facility] the event this information is protected by the Federal Confidentiality of Alcohol and Drug Abuse Patient Records regulations: The Federal rules restrict any use of the information to criminally investigate or prosecute any alcohol or drug abuse patient.[facility] the event this information is protected by the Federal Confidentiality of Alcohol and Drug Abuse Patient Records regulations: The Federal rules restrict any use of the information to criminally investigate or prosecute any alcohol or drug abuse patient.[facility] the event this information is protected by the Federal Confidentiality of Alcohol and Drug Abuse Patient Records regulations: The Federal rules restrict any use of the information to criminally investigate or prosecute any alcohol or drug abuse patient.[facility] the event this information is protected by the Federal Confidentiality of Alcohol and Drug Abuse Patient Records regulations: The Federal rules restrict any use of the information to criminally investigate or prosecute any alcohol or drug abuse patient.[facility] the event this information is protected by the Federal Confidentiality of Alcohol and Drug Abuse Patient Records regulations: The Federal rules restrict any use of the information to criminally investigate or prosecute any alcohol or drug abuse patient.[facility] the event this information is protected by the Federal Confidentiality of Alcohol and Drug Abuse Patient Records regulations: The Federal rules restrict any use of the information to criminally investigate or prosecute any alcohol or drug abuse patient.[facility] the event this information is protected by the Federal Confidentiality of Alcohol and Drug Abuse Patient Records regulations: The Federal rules restrict any use of the information to criminally investigate or prosecute any alcohol or drug abuse patient.[facility] the event this information is protected by the Federal Confidentiality of Alcohol and Drug Abuse Patient Records regulations: The Federal rules restrict any use of the information to criminally investigate or prosecute any alcohol or drug abuse patient.[facility] the event this information is protected by the Federal Confidentiality of Alcohol and Drug Abuse Patient Records regulations: The Federal rules restrict any use of the information to criminally investigate or prosecute any alcohol or drug abuse patient.[facility] the event this information is protected by the Federal Confidentiality of Alcohol and Drug Abuse Patient Records regulations: The Federal rules restrict any use of the information to criminally investigate or prosecute any alcohol or drug abuse patient.[facility] the event this information is protected by the Federal Confidentiality of Alcohol and Drug Abuse Patient Records regulations: The Federal rules restrict any use of the information to criminally investigate or prosecute any alcohol or drug abuse patient.[facility] the event this information is protected by the Federal Confidentiality of Alcohol and Drug Abuse Patient Records regulations: The Federal rules restrict any use of the information to criminally investigate or prosecute any alcohol or drug abuse patient.[facility] the event this information is protected by the Federal Confidentiality of Alcohol and Drug Abuse Patient Records regulations: The Federal rules restrict any use of the information to criminally investigate or prosecute any alcohol or drug abuse patient.[facility] the event this information is protected by the Federal Confidentiality of Alcohol and Drug Abuse Patient Records regulations: The Federal rules restrict any use of the information to criminally investigate or prosecute any alcohol or drug abuse patient.[facility] Reason for Visit (unrecogniz ed section and content) Reason Comments RESCHEDULE Reason Comments APPT RESCHEDULE REQUEST Reason Onset Date Comments Refill Request 10/17/2022 Reason Comments Medicare Wellness Exam Reason Onset Date Comments Population Health Navigation Outreach 12/24/2022 [facility] Reason Comments Blood Pressure Check Reason Onset Date Comments Refill Request 01/13/2023 Reason Comments Lump Reason Comments Results Reason Comments Recheck 1 month BP check Reason Comments Nose Bleed Reason Comments 6 Month Exam Reason Onset Date Comments Population Health Navigation Outreach 08/30/2023 [facility] Reason Comments Radiology CT Specialty Diagnoses / Procedures Referred By Berenice erickson Referred To Contact CT IMAGING Diagnoses Abnormal findings on diagnostic imaging of body structures Clavicle enlargement Clavicle pain Procedures CT CLAVICLE W IVCON RIGHT CT UPPER EXTREMITY W/CONTRAST MATERIAL Avtar Chowdary MD [address] [place] [address] [place] [id number] Referral ID Status Reason Start Date Expiration Date V isits Requested Visits Authorized [id number] Closed Auto-Generate d Referral 05/27/2023 06/25/2024 1 1 Reason Comments Results Heart failure Care Teams (unrecognized sec tion and content) Jukebox Routeman Relationship Specialty Start Date End Date Luzmaria Huizar III, MD PCP - General 02/12/10 [employer] Routeman Relationship Specialty Start Date End Date Luzmaria Huizar III, MD PCP - General 02/12/10 [employer] Routeman Relationship Specialty Start Date End Date Luzmaria Huizar III, MD PCP - General 02/12/10 10/19/22 [employer] Routeman Relationship Specialty Start Date End Date Avtar Chowdary MD [address] [place] [id number] PCP - General Internal Medicine 11/27/22 Jukebox Routeman Relationship Specialty Start Date End Date Avtar Chowdary MD [address] [place] [address] PCP - General Internal Medicine 11/27/22 Jukebox Routeman Relationship Specialty Start Date End Date Avtar Chowdary MD [address] [place] [address] PCP - General Internal Medicine 11/27/22 Jukebox Routeman Relationship Specialty Start Date End Date Avtar Chowdary MD [address] [place] [id number] PCP - General Internal Medicine 11/27/22 Jukebox Routeman Relationship Specialty Start Date End Date Avtar Chowdary MD [address] [place] [id number] PCP - General Internal Medicine 11/27/22 Jukebox Routeman Relationship Specialty Start Date End Date Avtar Chowdary MD [address] [facility] [place] [address] PCP - General Internal Medicine 11/27/22 Jukebox Routeman Relationship Specialty Start Date End Date Avtar Chowdary MD [address] [facility] [place] [address] PCP - General Internal Medicine 11/27/22 Jukebox Routeman Relationship Specialty Start Date End Date Avtar Chowdary MD [address] [facility] [place] [address] PCP - General Internal Medicine 11/27/22 Jukebox Routeman Relationship Specialty Start Date End Date Avtar Chowdary MD [address] [facility] [place] [address] PCP - General Internal Medicine 11/27/22 Jukebox Routeman Relationship Specialty Start Date End Date Avtar Chowdary MD [address] [facility] [place] [address] PCP - General Internal Medicine 11/27/22 Jukebox Routeman Relationship Specialty Start Date End Date Avtar Chowdary MD [address] [facility] [place] [address] PCP - General Internal Medicine 11/27/22 Jukebox Routeman Relationship Specialty Start Date End Date Avtar Chowdary MD [address] [facility] [place] [address] PCP - General Internal Medicine 11/27/22 Jukebox Routeman Relationship Specialty Start Date End Date Avtar Chowdary MD [address] [facility] [place] [address] PCP - General Internal Medicine 11/27/22 Jukebox Routeman Relationship Specialty Start Date End Date Avtar Chowdary MD [address] [place], [place] [address] PCP - General Internal Medicine 11/27/22 Jukebox Routeman Relationship Specialty Start Date End Date Avtar Chowdary MD [address] [place], [place] [id number] PCP - General Internal Medicine 11/27/22 Jukebox Routeman Relationship Specialty Start Date End Date Avtar Chowdary MD [address] [place], [place] [address] PCP - General Internal Medicine 11/27/22 Jukebox Routeman Relationship Specialty Start Date End Date Avtar Chowdary MD [address] [place], [place] [address] PCP - General Internal Medicine 11/27/22 Jukebox Routeman Relationship Specialty Start Date End Date Avtar Chowdary MD [address] [place], [place] [id number] PCP - General Internal Medicine 11/27/22 FOR RECORDS PERTAINING TO PATIENTS WHO ARE OR HAVE BEEN ENROLLED IN A CHEMICAL DEPENDENCY/SUBSTANCEABUSE PROGRAM, SOME INFORMATION MAY BE OMITTED. This clinical summary was aggregated from multiple sources. Caution should be exercised in using it in the provision of clinical care. This summary normalizes information from multiple sources, and as a consequence, information in this document may materially change the coding, format and clinical context of patient data. In addition, data may be omitted in some cases. CLINICAL DECISIONS SHOULD BE BASED ON THE PRIMARY CLINICAL RECORDS. [employer] provides no warranty or guarantee of the accuracy or completeness of information in this document.
== END | disposition home or self-care (01) ==
LOC: LAB 11:24
PROVIDERS: Referring Provider Internal Medicine Cardiovascular Disease; Visit Provider Internal Medicine Cardiovascular Disease
DX: I11.0 Hypertensive heart disease with heart failure (principal); I50.32 Chronic diastolic (congestive) heart failure; I48.91 Unspecified atrial fibrillation; R79.89 Other specified abnormal findings of blood chemistry
CPT/HCPCS: 36415; 84443

== ENCOUNTER 2024-01-02 20:27 | Emergency (ER) | payer MEDICARE, OTHER, SELFPAY ==
[2024-01-02 20:28] VITALS: BP 153/77; PULSE 64; RESP 15; TEMP 36.9; O2SAT 96; BMI 42.2
[2024-01-02 20:45] VITALS: O2SAT 99
--- NOTE | 2024-01-02 20:45 | EKG12_ITS ---
Test Reason : CP Blood Pressure : / mmHG Vent. Rate : 056 BPM Atrial Rate : 000 BPM P-R Int : 000 ms QRS Dur : 068 ms QT Int : 452 ms P-R-T Axes : 000 -15 -12 degrees QTc Int : 436 ms Atrial fibrillation with slow ventricular response Low voltage QRS Nonspecific ST and T wave abnormality Abnormal ECG Confirmed by WASHINGTON WHITAKER, PATIENCE ([id number]), market editor DARREL NORMAN ([id number]) on 01/03/2024 10:19:20 AM Referred By: PITO Confirmed By:PATIENCE DELAROSA MD
--- NOTE | 2024-01-02 20:47 | EDS_ITS ---
<Statement entered by Myrna Olivia MD - 01/03/24 00:53> I have personally performed a face to face assessment of the patient and have reviewed the ALMITA Note. Patient presents secondary to left shoulder and arm pain. She was diagnosed with CHF and A-fib a couple months ago. She is currently on rate control medication along with anticoagulation. She was just seen by Dr. Witt this week to establish care at a local cardiology office. She reports having some intermittent left shoulder blade pain and today noted it was more pronounced with some pain in her left upper arm. She reports shortness of breath with exertion. Dr. Witt has a stress test and Holter monitor ordered. Patient states she is supposed to receive a call tomorrow to get this scheduled. Patient sitting upright in bed no acute distress. Head and neck examination unremarkable. Heart is slightly irregular. No murmurs appreciated. Lung sounds are clear. Abdomen is soft and nontender. Left upper extremity examination reveals no edema or erythema. Strong distal pulses with full range of motion. EKG reveals some nonspecific ST changes, unchanged when compared to prior study from 12/29/2023. Lab work largely unremarkable with a normal troponin. Chest x- ray reveals chronic changes with no focal infiltrate. Patient's EKG is unchanged. She has been having waxing and waning pain for quite some time, slightly worsened today. She is already scheduled for outpatient follow-up including pending stress test and Holter monitor. I do feel she is safe for discharge and this follow-up. Return instructions were provided. HPI History of Present Illness Chief Complaint: Chest Pain Narrative Narrative: 73-year-old female with PMH of HTN, HLD, A-fib on Eliquis, CHF has had 2 days of aching left shoulder blade pain and dyspnea on exertion. 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 Her blood pressure has also been high running anywhere from 130 to 170 systolic. She has no chest pain. She has had 1 week of dry cough but no fever or chills. No nausea, vomiting, or abdominal pain. No lower extremity edema, orthopnea or PND. She was diagnosed with A-fib and CHF around 2022 and is a patient of Dr. Witt. Tomorrow their office is supposed to call to schedule a nuclear stress test and Holter monitor. 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 Seasonal allergies Home Medications apixaban 5 mg tablet 5 mg PO BID 12/20/23 [History Last Taken Unknown] escitalopram oxalate 20 mg tablet 20 mg PO DAILY 12/20/23 [History Last Taken Unknown] furosemide 20 mg tablet 20 mg PO DAILY 12/20/23 [History Last Taken Unknown] losartan 100 mg tablet 100 mg PO DAILY 12/20/23 [History Last Taken Unknown] spironolactone 25 mg tablet 25 mg PO DAILY 12/20/23 [History Last Taken Unknown] amlodipine 10 mg tablet 10 mg PO DAILY #90 tabs 12/29/23 [Rx Last Taken Unknown] Allergy/AdvReac Type Severity Reaction Status Date / Time hydrochlorothiazide AdvReac Intermediate GI upset Verified 01/02/24 20:28 lisinopril AdvReac Intermediate cough Verified 01/02/24 20:28 potassium chloride AdvReac Intermediate Hives Verified 01/02/24 20:28 simvastatin AdvReac Intermediate Vomiting Verified 01/02/24 20:28 Family History Sister Alcoholism Mother Heart disease Father Heart disease Emphysema of lung Surgical History History of appendectomy History of back surgery (~2019) History of total knee replacement (~2017) Hx of tonsillectomy Hx of tubal ligation Social History (Updated 12/29/23 @ 10:26 by Michelle Whaley) Smoking Status: Never smoker second hand exposure: No alcohol intake: never substance use type: does not use caffeine: Yes Type: coffee Number of servings: 2 what type of physical activity do you participate in: none patricia/gnosticism: Congregational seatbelt use: always ROS ROS ED ROS Narrative Constitutional: Negative for fever, chills, malaise. CVS: Negative for palpitations, chest pain, syncope. Respiratory: Positive for cough, dyspnea on exertion. GI: Negative for abdominal pain, nausea, vomiting, melena, hematochezia. : Negative for dysuria. EXAM Physical Exam Narrative Exam Narrative: CONST: Patient sitting in no acute distress. EYES: Normal inspection. NECK: Normal inspection. RESP: No respiratory distress, CTAB. CVS: Regular rate and rhythm, no murmur, no gallop. ABD: Soft and nontender, no guarding or rebound, nondistended. Back: Normal inspection. SKIN: Color normal, no rash, warm, dry, intact. EXTREMITIES: Normal appearance, No tenderness of chest wall, back, or left upper extremity. 2+ radial and PT pulses. NEURO: Oriented x4. PSYCH: Normal affect. Const Vital Signs: 01/02/24 20:28 01/02/24 20:45 01/02/24 21:11 Temperature 98.4 F Temperature Source Oral Pulse Rate 64 55 L Respiratory Rate 15 16 Blood Pressure 153/77 H 157/88 H Blood Pressure Mean 102 111 Pulse Ox 96 99 98 Oxygen Delivery Method Room Air Room Air 01/02/24 21:11 Temperature Temperature Source Pulse Rate Respiratory Rate Blood Pressure Blood Pressure Mean Pulse Ox Oxygen Delivery Method Room Air MDM MDM MDM Narrative Medical decision making narrative: History gathered from: Patient and spouse Differential: ACS, musculoskeletal pain, she is anticoagulated so I do not have concern for PE Patient presents with aching left shoulder blade pain and dyspnea on exertion. No chest pain. She states the symptoms have been present for 2 days but she reported the same symptoms at her cardiology visit on 12/29/2023. She is awake and alert with stable vital signs. She has rate controlled A-fib between 55?65. Lungs are clear. Abdomen soft and nontender. She has no lower extremity edema and upper and lower extremity pulses are intact. EKG shows A-fib with no acute ischemic changes and troponin is 10. Basic labs unremarkable. CXR shows no acute process. Since her symptoms were reported on her last cardiology visit and they are calling her tomorrow to schedule a Holter and nuclear stress test I do not think she needs admitted. She also does not have chest pain and symptoms have been going on for 4 days so she does not require repeat cardiac enzymes. Patient was comfortable with this plan and was discharged in stable condition. Lab Data Attestation: I reviewed the patient's lab results. Labs: Laboratory Results - last 24 hr 01/02/24 20:38 WBC 6.5 RBC 5.00 Hgb 14.3 Hct 45.6 MCV 91.2 MCH 28.6 MCHC 31.4 L RDW Std Deviation 43.9 RDW Coeff of Yazan 13.2 Plt Count 294 MPV 10.2 Immature Gran % (Auto) 0.500 Neut % (Auto) 58.1 Lymph % (Auto) 29.9 Starke % (Auto) 8.9 Eos % (Auto) 1.4 Baso % (Auto) 1.2 H Absolute Neuts (auto) 3.8 Absolute Lymphs (auto) 1.95 Nucleated RBC % 0 Sodium 137 Potassium 3.8 Chloride 102 Carbon Dioxide 30.0 Anion Gap 5 BUN 25 H Creatinine 1.05 H Estim Creat Clear Calc 48.92 Est GFR (MDRD) Af Amer 66 Est GFR (MDRD) Non-Af 55 L BUN/Creatinine Ratio 23.8 H Glucose 95 Calcium 9.5 Troponin I High Sens 10 Radiography Diagnostic Testing: Clinical Impression(s) from Imaging Studies Chest X-Ray 01/02/24 20:55 IMPRESSION: There are no acute findings. Electronically Signed: Nba Steele MD at 21:28 EST Reading Location ID and State: [facility] / [place] , Service support , ED attending interpretation of 2-view chest x-ray shows normal heart size, no acute infiltrate, edema, or effusion. EKG Initial EKG: Attestation: I personally reviewed and interpreted this EKG as follows: Comments: Atrial fibrillation at [address] and T wave abnormality Discharge Plan Triage Chief Complaint: Chest Pain ED Midlevel Provider: Polly Jones ED Provider: Myrna Olivia Dx/Rx/DC Orders Clinical Impression: Dyspnea on exertion, Shoulder blade pain Instructions: ED Dyspnea Prescriptions: No Action escitalopram oxalate 20 mg tablet 20 mg PO DAILY Patient Comments: TAKE 1 TABLET BY MOUTH ONCE DAILY spironolactone 25 mg tablet 25 mg PO DAILY losartan 100 mg tablet 100 mg PO DAILY apixaban 5 mg tablet 5 mg PO BID furosemide 20 mg tablet 20 mg PO DAILY amlodipine 10 mg tablet 10 mg PO DAILY Qty: 90 3RF Primary Care Provider: Avtar Chowdary Referrals: Elsy Witt MD [Med Staff - Active Staff] - Avtar Chowdary [[facility]] - Activity Restrictions/Additional Instructions: Your screening tests today are normal with no signs of a heart attack. Please schedule the Holter monitor and stress test with the cardiology office. Disposition Disposition: Home, Self Care
--- NOTE | 2024-01-02 20:55 | RAD_ITS ---
STUDY: XR Chest 2 Views 01/02/2024 8:54 PM REASON FOR EXAM: Female, 73 years old. chest pain COMPARISON: 3.30.21 TECHNIQUE: XR Chest 2 Views FINDINGS: There is no demonstrated pleural abnormality. Normal heart size. Normal mediastinum. Normal solomon. Prominent appearing increased interstitial lung markings. Normal visualized pulmonary arteries. There is atherosclerotic calcification of the aortic arch with tortuosity. There are diffuse degenerative changes of the visualized thoracic spine. There is degenerative osteoarthritis of the bilateral shoulders. There are no acute findings of the upper abdomen. RAD/Chest PA and Lateral IMPRESSION: There are no acute findings. Electronically Signed: Nba Steele MD at 21:28 EST ,
[2024-01-02] MEDS: Aspirin 81 MG TAB.CHEW 324 MG PO (21:07)
--- OUTSIDE RECORDS SUMMARY | 2024-01-02 21:10 | XMS RPT_ITS | CCD ---
Author Name Unknown Address [address] [place] [address] Organization [facility] Care Team Providers Care Software Development Manager Name Role Phone YANG WRIGHT DR Unavailable [...] Suly vailaAvtar Tijerina MD Primary Care Provider [phone] AVTAR CHOWDARY Primary Care Unavailable MIRTHA SOUZA Admitting Unavailable ALAN JAMES Referring Unavailable JAMEE CARMONA Consulting Unavailable SEB NOE Attending Unavailable AVTAR CHOWDARY Primary Care Unavailable ALAN JAMES Attending Unavailable AVTAR CHOWDARY Referring Unavailable AVTAR CHOWDARY Primary Care Unavailable AVTAR CHOWDARY Primary Care Unavailable AVTAR CHOWDARY Referring Unavailable AVTAR CHOWDARY Attending Unavailable AVTAR CHOWDARY Primary Care Unavailable AVTAR CHOWDARY Primary Care Unavailable AVTAR CHOWDARY Referring Unavailable AVTAR CHOWDARY Primary Care Unavailable HALIMA IRIZARRY Referring Unavailable KATTY, AVTAR Mir Primary Care Unavailable AVTAR CHOWDARY Referring Unavailable AVTAR CHOWDARY Primary Care Unavailable MEKA GROVE Attending Unavailable KATTY, AVTAR Mir Primary Care Unavailable HALIMA IRIZARRY Referring Unavailable AVTAR CHOWDARY Primary Care Unavailable AVTAR CHOWDARY Primary Care Unavailable AVTAR CHOWDARY Attending Unavailable AVTAR CHOWDARY Primary Care Unavailable AVTAR CHOWDARY Referring Unavailable AVTAR CHOWDARY Primary Care Unavailable KATTY, AVTAR J Referring Unavailable AVTAR CHOWDARY Primary Care Unavailable AVTAR CHOWDARY Attending Unavailable AVTAR CHOWDARY Primary Care Unavailable AVTAR CHOWDARY Primary Care Unavailable AVTAR CHOWDARY Attending Unavailable Allergies Allergy Classification Reported Allergen(s) Allergy Type Date of Onset Reaction(s) Facility (20 sources) Lisinopril; Translations: [LISINOPRIL] Drug Allergy 0 [facility] (20 sources) Potassium Chloride; Translations: [POTASSIUM CHLORIDE] Drug Allergy 9 Rash [facility] Work Phone: (20 sources) Simvastatin; Translations: [SIMVASTATIN] Drug Allergy 0 [facility] (3 sources) Thiazides; Translations: [THIAZIDES] Drug Intolerance 7 GI Upset [facility] (20 sources) ENVIRONMENTAL [Other] Propensity to adverse reactions 5 [facility] Work Phone: (20 sources) Thiazides Drug Intolerance 7 GI Upset [facility] (1 source) OTHER; Translations: [OTHER] Propensity to adverse reactions (disorder) 5 [facility] Repository Medications Current Medications Medication Drug Class(es) Dates Sig (Normalized) Sig (Original) apixaban 5 mg oral tablet (2 sources) Factor Xa Inhibitor Start: 11-09-2023 End: 06-17-2024 take 1 tablet by mouth twice daily apixaban (ELIQUIS) 5 mg tab(s) Take 1 tablet by mouth two times a day. 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 (20 sources) Post poliomyelitis [...] conditions (not mental disorders or infectious disease) (4 sources) Raised TSH level; Translations: [Other specified abnormal findings of blood chemistry] Onset: 03-08-2023 11-09-2023 Episodic Thyroid disorders (1 source) Acquired hypothyroidism; Translations: [Hypothyroidism, unspecified] 12-29-2023 Chronic Past or Other Problems Problem Classification Problem Date Documented Date Episodic/Chronic Acquired foot deformities (20 sources) Foot-drop; Translations: [Foot drop, unspecified foot] [...] Translations: [Clavicle pain] Onset: 06-10-2023 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 (20 sources) H/O: poliomyelitis; [...] 82 mm[Hg] Avtar Chowdary MD Work Phone: [facility] 05-27-2023 11:46-0400 Systolic blood pressure 126 mm[Hg] Avtar Chowdary MD Work Phone: [facility] 05-27-2023 10:32-0400 Body height 149.9 cm Avtar Chowdary MD Work Phone: [facility] 05-27-2023 10:32-0400 Body weight 93.98 kg Avtar Chowdary MD Work Phone: [facility] 05-27-2023 10:32-0400 Heart rate 75 /min Avtar Chowdary MD Work Phone: [facility] 05-27-2023 10:32-0400 SaO2% (BldA) [Mass fraction] 97 % Avtar Chowdary MD Work Phone: [facility] 02-26-2023 13:30-0400 Diastolic blood pressure 78 mm[Hg] Meka Haagen COMPUTER SYSTEMS SOFTWARE ARCHITECT.BUILDING INSPECTOR Work Phone: [facility] 02-26-2023 13:30-0400 Heart rate 68 /min Meka Haagen COMPUTER SYSTEMS SOFTWARE ARCHITECT.BUILDING INSPECTOR Work Phone: [facility] 02-26-2023 13:30-0400 Respiratory rate 18 /min Meka Haagen COMPUTER SYSTEMS SOFTWARE ARCHITECT.BUILDING INSPECTOR Work Phone: [facility] 02-26-2023 13:30-0400 SaO2% (BldA) [Mass fraction] 97 % Meka Haagen COMPUTER SYSTEMS SOFTWARE ARCHITECT.BUILDING INSPECTOR Work Phone: [facility] 02-26-2023 13:30-0400 Systolic blood pressure 124 mm[Hg] Meka Haagen COMPUTER SYSTEMS SOFTWARE ARCHITECT.BUILDING INSPECTOR Work Phone: [facility] 02-22-2023 11:47-0400 Body height 149.9 cm Avtar Chowdary MD Work Phone: [facility] 02-22-2023 11:47-0400 Body weight 92.17 kg Avtar Chowdary MD Work Phone: [facility] 02-22-2023 11:47-0400 Diastolic blood pressure 81 mm[Hg] Avtar Chowdary MD Work Phone: [facility] 02-22-2023 11:47-0400 Heart rate 76 /min Avtar Chowdary MD Work Phone: [facility] 02-22-2023 11:47-0400 Systolic blood pressure 128 mm[Hg] Avtar Chowdary MD Work Phone: [facility] 12-28-2022 09:37-0500 Diastolic blood pressure 91 mm[Hg] Mi Nurse Work Phone: [facility] 12-28-2022 09:37-0500 Heart rate 63 /min Mi Nurse Work Phone: [facility] 12-28-2022 09:37-0500 Systolic blood pressure 161 mm[Hg] Mi Nurse Work Phone: [facility] 11-27-2022 13:00-0500 Body height 149.9 cm Avtar Chowdary MD Work Phone: [facility] 11-27-2022 13:00-0500 Body weight 91.17 kg Avtar Chowdary MD Work Phone: [facility] 11-27-2022 13:00-0500 Diastolic blood pressure 70 mm[Hg] Avtar Chowdary MD Work Phone: [facility] 11-27-2022 13:00-0500 Heart rate 66 /min Avtar Chowdary MD Work Phone: [facility] 11-27-2022 13:00-0500 SaO2% (BldA) [Mass fraction] 99 % Avtar Chowdary MD Work Phone: [facility] 11-27-2022 13:00-0500 Systolic blood pressure 146 mm[Hg] Avtar Chowdary MD Work Phone: [facility] Encounters Encounter Date Encounter Type Care Provider Facility Start: 12-29-2023 Telephone encounter Avtar Chowdary MD Work Phone: [...] Avtar Chowdary MD Work Phone: Start: 11-27-2022 PFIZER-BIONTZeomatrix COVI D-19 BIVALENT BOOSTER VACCINE, AGE 12+ YR Avtar Chowdary MD Work Phone: Start: 01-29-2020 Mammography [facility] Start: 12-31-2010 Colonoscopy Emeka nielsen [facility] Plan of Treatment Date Care Activity Detail Author Start: 12-02-2027 Lipid 1996 panel - S dinora or Plasma Lipid Screening [facility] Start: 12-02-2027 Lipid panel Lipid Screening [facility] Start: 12-02-2027 LIPID SCREEN LIPID SCREEN [facility] Start: 12-15-2026 [facility]: 11-07-2026 [facility] Start: 05-27-2026 DIABETES SCREEN DIABETES SCREEN [facility] Start: 05-27-2026 Diabetes Screening Diabetes Screenin g [facility] Start: 03-12-2026 COLOGUARD (FIT-DNA) COLOGUARD (FIT-D NA) [facility] Start: 03-12-2026 COLORECTAL CANCER SCREENING COLORECTAL CANCER SCREENING [facility] Start: 03-12-2026 Screening for malign ant neoplasm of colon [facility] Start: 12-02-2025 DIABETES SCREEN DIABETES SCREEN [facility] Start: 12-20-2024 Annual PCP Team Airport Planner tami Disease Visit Annual PCP Team Chronic Disease Visit [facility] Start: 12-20-2024 BP Controlled (<130/80) BP Controlle d (<130/80) [facility] Start: 12-20-2024 Covid-19 Vaccine ( season) Covid-19 Vaccine () [facility] Immunizations Immunization Date Immunization Notes Care Provider eKndall ellis 11-27-2022 COVID-19 booster vaccine, age 12+ yr, bivalent (PFIZER-BIONTZeomatrix) Avtar Chowdary MD Work Phone: [facility] 11-27-2022 influenza, high-dose , quadrivalent vaccine (FLUZONE HIGH DOSE QUADRIVALENT) Avtar Chowdary MD Work Phone: [facility] 11-27-2022 influenza virus vacc ine, unspecified formulation Moriah Reyes MA [facility] 08-21-2021 influenza, high-dose , quadrivalent vaccine (FLUZONE HIGH DOSE QUADRIVALENT) Atvar Chowdary MD Work Phone: [facility] 09-05-2020 influenza, high dose seasonal, preservative-free [facility] 09-05-2020 influenza, high-dose , quadrivalent vaccine (FLUZONE HIGH DOSE QUADRIVALENT) Avtar Chowdary MD Work Phone: [facility] 09-25-2019 influenza, high dose seasonal, preservative-free [facility] 08-06-2018 influenza, high dose seasonal, preservative-free [facility] 02-25-2018 pneumococcal polysaccharide vaccine, 23 valent [facility] 08-16-2017 influenza, high dose seasonal, preservative-free [facility] 12-07-2016 pneumococcal conjuga te vaccine, 13 valent [facility] 03-06-2015 zoster vaccine, live [facility] Work Phone: 08-07-2009 tetanus and diphther ia toxoids, not adsorbed, for adult use [facility] Payers Date Payer Category Payer Medicare [id number] 2016 Private Health Insurance AET[employer] A ETNA MEDICARE SUPPLEMENT [id number] 2016-Present [phone] [address] [address] [place] [address] Indemnity [id number] 2016 Private Health Insurance [id number] 2016 Medicare [id number] 2016 Medicare MEDICARE MEDICAR E A AND B [id number] 2016-Present [phone] [place] [address] Medicare [id number] 2016 Medicare MEDICARE MEDICAR E A AND B [id number] 2016-Present [phone] [place] [address] Medicare [id number] 1950 Unknown [id number] 1950 Unknown [id number] 1950 Unknown [id number] Medicare [id number] Medicare [id number] Social History Date Type Detail Facility Start: 08-26-2011 Tobacco smoking stat [facility] Never smoked tobacco [facility] Start: 09-25-2019 End: 12-20-2023 Alcohol intake Current non-drinker of alcohol (finding) [facility] Start: 1950 Sex Assigned At Not on file C [facility] Start: 04-25-2022 End: 05-05-2022 Exposure to SARS-CoV-2 (event) Not sure [facility] Start: 08-26-2011 Tobacco use and exposure Smokeless tobacco non-user [facility] Work Phone: Start: 05-22-2019 End: 05-27-2023 History of Social function [facility] Start: 05-22-2019 End: 05-27-2023 Tobacco use panel [facility] Adult Depression Screening Assessment 0 [facility] Clinical Notes 01-20-2007 to 12-30-2023 Telephone Encounter - Sarah Blanton RN - 12/30/2023 10:32 AM ESTTelephone Encounter - Avtar Chowdary MD - 12/29/2023 5:07 PM ESTTelephone Encounter - Anita Petersen - 12/29/2023 4:46 PM EST Note Date & Type Note Facility 12-30-2023 Miscellaneous Notes Pt called and is notified of providers message and instructions. Pt voices understanding. Sarah Blanton RN Jassiry, in next few weeks Spoke with patient and informed. When should she recheck labs? Has 6 month follow up with you in June. F/U sooner? Anita Petersen That thyroid level is barely abnormal and usually not significant. Recheck labs and then follow up. documented in this encounter [facility] 12-20-2023 Note HNO ID: [id number] Author: AVTAR CHOWDARY MD Service: ? Author [...] See previous OV note 11/22/23: Admitted into [facility] 11/07/23 Discharged 11/09/23 Diagnoses:CHF, a fib. Elevated tsh Dyspnea. Symptoms concerning CHF. A-fib. Started on Eliquis. HTN. Continuing on Amlodipine and Losartan. Started on Aldactone. [place] [facility] put her on Furosemide 20 [...] W/COLLJ SPEC WHEN PFRMD 12/31/10 EMG 12/04/2015 [facility] - see scanned document ENDOMETRIAL ABLTJ THERMAL W/O HYSTEROSCOPIC GUID LIG/TRNSXJ FLP TUBE ABDL/VAG APPR UNI/BI Tubal ligation TONSILLECTOMY PRIMARY/SECONDARY Tonsillectomy FAMILY HISTORY Problem Relation Age of Onset Heart Mother Smoker (more content not included)... [facility] 12-16-2023 Miscellaneous Notes Pt called and is notified of providers results and instructions. Pt voices understanding. Pt has a 4 week f/u with provider next week. Pt denies any SOB or edema. She states she is just tired. She wanted to let provider know she has an appointment with Dr Witt on 12/29/23 with [facility]. Sarah Blanton RN Labs are improving. Mag is improving as well. Recheck labs in one month. How feeling? Any shortness of breath or edema. documented in this encounter [facility] 11-22-2023 Note HNO ID: [id number] Author: AVTAR CHOWDARY MD Service: ? Author Type: Physician Type: Progress Notes Filed: 11/22/2023 11:55 Note Text: Patient presents with: Hospital Follow Up HPI: Patient presents today for office visit for hospital follow up./TCM Admitted into [facility] 11/07/23 Discharged 11/09/23 Diagnoses:CHF, a fib. Elevated tsh Dyspnea. Symptoms concerning CHF. A-fib. Started on Eliquis. HTN. Continuing on Amlodipine and Losartan. Started on Aldactone. [facility] put her on Furosemide 20 mg [...] W/COLLJ SPEC WHEN PFRMD 12/31/10 EMG 12/04/2015 [facility] - see scanned document ENDOMETRIAL ABLTJ [...] appearance: Well appearing, (more content not included)... [facility] 11-18-2023 Note HNO ID: [id number] Author: POLLY DORAN, RN Service: ? Author Type: Registered Nurse [...] [place] on 11/09 for new onset CHF Retirement Administrator plan for next outreach: Will follow up NISH Education Ordered -: No Polly Doran RN November 18, 2023 [facility] 11-18-2023 Note Patient Outreach ([facility]) BASHIRMARIANELA FISH ([id number]) 1950 F Date Time Provider Department 11/18/23 POLLY DORAN During your visit today, we recorded the following information about you: Polly Doran, SHERINE 11/18/2023 2:12 PM Signed TRANSITION CARE MANAGEMENT [...] Network Status: In-Network Discharge Summary: DC'd from [facility] on 11/09 for new onset CHF Retirement Administrator plan for next outreach: Will follow up [...] Encounter Status:Closed by POLLY DORAN on 11/18/23 [facility] 11-10-2023 Note Patient Outreach ([facility]) MARIANELA BASHIR ([id number]) 1950 F Date Time Provider Department 11/10/23 POLLY DORAN [facility] During your visit today, we recorded the [...] Network Status: In-Network Discharge Pt discharged from [facility] on 11/09/23. Admitted for: CHF/afib Contact made with patient: Yes Hi my name is Polly Doran RN and I am calling from the [facility] on behalf of your PCP, Avtar [...] like to speak with a social work steam box tender to help give you support for any [...] I will send your request to a claims auditor who will contact and assist you with [...] POTASSIUM CHLORIDE 01/27/2019 2 - Rash Comments: Madie ALARCONCOR (SIMVASTATIN) 07/09/2010 Comments: vomitting Date Reviewed: 11/07/2023 Reviewed by: Caryn Meier RN - Fully Assessed Reason for Visit: Transition Of Care [8484] Cmt: [facility], initial outreach Prescriptions as of 11/10/2023 - apixaban (ELIQUIS) 5 mg tab(s) Take 1 tablet by mouth two times a day. - spironolactone (ALDACTONE) 25 mg tablet Take 1 tablet by mouth once daily. - furosemide (LASIX) 20 mg tablet Take 1 tablet by mouth on (more content not included)... [facility] 11-10-2023 Note HNO ID: [id number] Author: Polly Doran RN Service: ? Author Type: Registered Nurse [...] Network Status: In-Network Discharge Pt discharged from [facility] on 11/09/23. Admitted for: CHF/afib Contact made with patient: Yes Hi my name is Polly Doran RN and I am calling from the [facility] on behalf of your PCP, Avtar [...] like to speak with a social work steam box tender to help give you support for any [...] I will send your request to a claims auditor who will contact and assist you with [...] if possible). NISH Education Ordered -: No [facility] 11-09-2023 Note HNO ID: [id number] Author: Alyson Coelho CPhT Service: Pharmacy Author Type: Measurement And Verification Engineer Type: Plan of Care Filed: 11/09/2023 4:07 PM Note Text: PHARMACY BEDSIDE DELIVERY SERVICE Patient Name: Marianela Bashir The marked outpatient medications were Filled at: [facility] and delivered to the patient's bedside to [...] or your Primary Care Provider. Alyson Coelho [facility] PAGER: Alyson Coelho [phone] 11/09/23 4:07 PM November 09, 2023 4:06 PM [facility] 11-09-2023 Note HNO ID: [id number] Author: Tiesha Adasmon RN Service: Care Management Author Type: Registered Nurse Type: Care Mgt Progress Note Filed: 11/09/2023 4:00 PM Note Text: CARE MANAGEMENT PROGRESS NOTE SERVICE DATE: 11/09/2023 SERVICE TIME: 4:00 PM LOS: 2 days IMM Follow Up Copy Given: Yes Copy given to:: Patient Method: By Phone SIGNATURE: Tiesha Adamson RN PATIENT NAME: Marianela Bashir DATE: November 09, 2023 TIME: 4:00 PM PAGER/CONTACT #: [phone] [facility] 11-09-2023 Note HNO ID: [id number] Author: Tiesha Adamson RN Service: Care Management Author Type: Registered Nurse Type: Care Mgt Initial Assessment Filed: 11/09/2023 1:31 PM Note Text: CARE MANAGEMENT: ASSESSMENT AND DISCHARGE PLAN SERVICE DATE: November 09, 2023 SERVICE TIME: 1:20 PM PCP: Avtar Chowdary MD Primary Contact: Extended Emergency Contact Information Primary Emergency Contact: Yo Bashir Address: [address] [place] [id number] [place] Relation: Spouse Admission Status: Inpatient Insurance [...] Be able to go home, General wellness [place] of Choice Explained: Are you interested in [...] the stairs. 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 +PCP and uses [facility] in [place]. D/C plan is to return home with spouse when medically ready. SIGNATURE: Tiesha Adamson RN PATIENT NAME: Marianela Bashir DATE: November 09, 2023 TIME: 1:18 PM CONTACT #: [phone] [facility] 11-09-2023 Note HNO ID: [id number] Author: Seb Noe MD Service: Hospital Medicine Author Type: Physician Type: Progress Notes Filed: 11/09/2023 9:03 AM Note Text: DEPARTMENT OF HOSPITAL MEDICINE PROGRESS NOTE SERVICE DATE: 11/09/2023 SERVICE TIME: 6:31 AM Hospital Medicine/Primary Attending: Seb Noe MD NIGHT AND WEEKEND COVERAGE: [place] COVERAGE: After 7pm, please call cross cover pager #[phone] Subjective INTERVAL HPI: Patient seen and examined. Epic reviewed. [place] . MEDICATIONS: Reviewed Objective PHYSICAL EXAM: BP [...] Medicine Pager: Team Color 11/09/23 6:31 AM [facility] 11-08-2023 Note HNO ID: [id number] Author: Ajay Reyes MD Service: Hospital Medicine Author Type: Fellow Type: Progress Notes Filed: 11/08/2023 1:27 PM Note Text: DEPARTMENT OF HOSPITAL MEDICINE PROGRESS NOTE SERVICE DATE: 11/08/2023 SERVICE TIME: 1:23 PM Hospital Medicine/Primary Attending: Ajay reyes MD NIGHT AND WEEKEND COVERAGE: [place] COVERAGE: After 7pm, please call cross cover pager #[phone] Subjective INTERVAL HPI: Admitted last night with [...] Vascular Medicine November 08, 2023 1:26 PM [facility] 11-07-2023 Miscellaneous Notes Patient given results and verbalized understanding of instructions given. Kirstin Smith Unable to reach patient. Mailbox full/Mailbox not set up/ Number incorrect. Please try again later. Kristin Smith Her heart failure lab was significantly elevated. Since this is a new issue for her, I recommend ER evaluation this weekend. documented in this encounter [facility] 11-06-2023 Note HNO ID: [id number] Author: Benjamin Ba RT(R) Service: ? Author Type: Technologist Type: Progress [...] RT Jason(R) November 06, 2023 10:14 AM [facility] 11-06-2023 Note HNO ID: [id number] Author: Halima Irizarry APRN.BUILDING INSPECTOR Service: ? Author Type: Nurse Practitioner Type: [...] W/COLLJ SPEC WHEN PFRMD 12/31/10 EMG 12/04/2015 [facility] - see scanned document ENDOMETRIAL ABLTJ [...] PNL - FUROSEMIDE 20 MG TABLET Halima Irizarry, COMPUTER SYSTEMS SOFTWARE ARCHITECT.BUILDING INSPECTOR Plan discussed with collaborating physician Dr. Kumar [facility] 08-30-2023 Note Patient Outreach ([facility]) MARIANELA BASHIR ([id number]) 1950 F Date Time Provider Department 08/30/23 MORIAH REYES During your visit today, we recorded the following information about you: Moriah Reyes MA 08/30/2023 2:57 PM Signed POPULATION HEALTH NAVIGATION OUTREACH Action/FYI LVM AbcodiaT MESSAGE SENT ANNUAL MEDICARE WELLNESS EXAM after 12-07-23 BP Controlled (<130/80) Never done Influenza Vaccine(1) due on 07/16/2023 Patient Identified by Name and : NO Outreach Outcome/Action Unable to reach patient: Left message [employer] message sent Did you use a PCP [...] Encounter Status:Closed by MORIAH REYES on 08/30/23 [facility] 08-30-2023 Note HNO ID: [id number] Author: Moriah Reyes MA Service: ? Author Type: Die Casting Machine Maintainer Type: Progress Notes Filed: 08/30/2023 2:57 PM Note Text: POPULATION HEALTH NAVIGATION OUTREACH Action/ LV VeedMe MESSAGE SENT ANNUAL MEDICARE WELLNESS EXAM after 12-07-23 BP Controlled (<130/80) Never done Influenza Vaccine(1) due on 07/16/2023 Patient Identified by Name and : NO Outreach Outcome/Action Unable to reach patient: Left message [employer] message sent Did you use a PCP [...] Reyes MA August 30, 2023 10:22 AM [facility] 08-30-2023 History of Present illness Narrative POPULATION HEALTH NAVIGATION OUTREACH Action/FYI LVM [employer] MESSAGE SENT ANNUAL MEDICARE WELLNESS EXAM after 12-07-23 BP Controlled (<130/80) Never done Influenza Vaccine(1) due on 07/16/2023 Patient Identified by Name and : NO Outreach Outcome/Action Unable to reach patient: Left message [employer] message sent Did you use a PCP [...] 2023 10:22 AM documented in this encounter [facility] 06-10-2023 Miscellaneous Notes Patient calls and notified of results and providers instructions. Patient verbalizes understanding. Adilia Hodges RN Message left for pt to call back for results. Isabel Morley MA Ct does not show any tumors etc. Shows severe degenerative changes(arthritic) changes at that point. Call if worsens. documented in this encounter [facility] 06-10-2023 Note HNO ID: [id number] Author: Medina Ramires RT(R) Service: ? Author Type: Sales Clerk Supervisor Type: Progress Notes Filed: 06/10/2023 1:36 PM [...] DATE: June 10, 2023 TIME: 1:35 PM [facility] 06-10-2023 History of Present illness Narrative Radiology [...] TIME: 1:35 PM documented in this encounter [facility] 05-27-2023 Note HNO ID: [id number] Author: Avtar Chowdary MD Service: ? Author [...] W/COLLJ SPEC WHEN PFRMD 12/31/10 EMG 12/04/2015 [facility] - see scanned document ENDOMETRIAL ABLTJ [...] 6. Psych: Doing well. Avtar Chowdary MD [facility] 05-27-2023 History of Present illness Narrative Patient [...] W/COLLJ SPEC WHEN PFRMD 12/31/10 EMG 12/04/2015 [facility] - see scanned document ENDOMETRIAL ABLTJ [...] Avtar Chowdary MD documented in this encounter [facility] 03-09-2023 Miscellaneous Notes March 10, 2023 PID: [id number] Marianela Bashir [address] [place] [address] Dear Ms. Bashir, We are pleased to [...] report will be kept on file at [facility] as part of your permanent medical record and are available for your continuing care. Thank you for allowing us to help in meeting your health care needs. Sincerely, Dr. Hernandez Interpreting Radiologist (Normal over 40) documented in this encounter [facility] 02-26-2023 Note HNO ID: [id number] Author: Meka Grove APRN.BUILDING INSPECTOR Service: ? Author Type: Nurse Practitioner Type: [...] W/COLLJ SPEC WHEN PFRMD 12/31/10 EMG 12/04/2015 [facility] - see scanned document ENDOMETRIAL ABLTJ [...] as needed for worsening/no improvement. Meka Grove APRN.BUILDING INSPECTOR This note was partially generated using MonoSphere voice recognition system. Note was reviewed for accuracy. There may be minor misspellings or grammar miscues with MonoSphere voice recognition. [facility] 02-26-2023 Instructions Meka Grove APRN.CNP - 02/26/2023 1:45 PM EDT Continue the same medication. Recheck as scheduled. documented in this encounter [facility] 02-26-2023 History of Present illness Narrative [...] W/COLLJ SPEC WHEN PFRMD 12/31/10 EMG 12/04/2015 [facility] - see scanned document ENDOMETRIAL ABLTJ [...] as needed for worsening/no improvement. Meka Grove APRN.BUILDING INSPECTOR This note was partially generated using MonoSphere voice recognition system. Note was reviewed for accuracy. There may be minor misspellings or grammar miscues with MonoSphere voice recognition. documented in this encounter [facility] 02-25-2023 Miscellaneous Notes CD/report READY FOR TARGET PROTECTION SPECIALIST AT [facility] L/m for pt Patient is requesting disc and report of X-rays from 02/22/23. Please notify the patient when they are ready for clam picker. Thank you. documented in this encounter [facility] 02-24-2023 Miscellaneous Notes Spoke with patient and informed of result. She verbalized understanding. Anita Petersen Xray shows what is mainly degenerative changes in the shoulder. Did she ever dislocate the shoulder.. would refer to ortho. I think she has seen [facility] in the past. The clavicle just looks like the bone is very large where it is sticking out. We could consider further imaging of her clavicle if it enlarges. documented in this encounter [facility] 02-22-2023 Note HNO ID: [id number] Author: RT Suleiman(R) Service: Nuclear Medicine Author [...] RT Suleiman(R) February 22, 2023 12:18 PM [facility] 02-22-2023 Note HNO ID: [id number] Author: Avtar Chowdary MD Service: ? Author [...] completed and were normal. Dr. Wright with [facility] suggested ultrasound. Had been seeing [facility] for neck and back pain. Had [...] W/COLLJ SPEC WHEN PFRMD 12/31/10 EMG 12/04/2015 [facility] - see scanned document ENDOMETRIAL ABLTJ [...] cancer - ICD9: V76.51, ICD10: Z12.11 - MARY Chowdary MD [facility] 02-22-2023 History of Present illness Narrative Patient presents with: Lump HPI: Patient presents today for office visit for lump she's noticed on the right side of her clavicle since February 13. Lump does not cause any pain. Having trouble with pain throughout left shoulder and down back of neck. Cannot lift anything heavy. X-ray and MRI completed and were normal. Dr. Wright with [facility] suggested ultrasound. Had been seeing [facility] for neck and back pain. Had [...] W/COLLJ SPEC WHEN PFRMD 12/31/10 EMG 12/04/2015 [facility] - see scanned document ENDOMETRIAL ABLTJ [...] Avtar Chowdary MD documented in this encounter [facility] 01-25-2023 Miscellaneous Notes Pt notified of [...] #1 154/93 P71 #2 158/92 P60 #3 163/ P61 #4 159/90 P65 #5 166/82 P63 [...] Luiza Dobbins LPN documented in this encounter [facility] 01-25-2023 Note HNO ID: [id number] Author: Luiza Dobbins LPN Service: ? Author [...] after review by PCP. Luiza Dobbins LPN [facility] 01-13-2023 Miscellaneous Notes Patient phones requesting refills as follows: Requested Prescriptions Pending Prescriptions Disp Refills escitalopram oxalate (LEXAPRO) 20 mg tablet 90 tablet 0 Sig: Take 1 tablet by mouth once daily. LOLY-11/27/22 Labs-12/02/22 NOV-05/27/23 Please review and advise. Alma Rea LPN documented in this encounter [facility] 12-28-2022 History of Present illness Narrative [...] yet today. Also, she was seen at [facility] ER on 12/25/22 for epistaxis. BP [...] would be contacted after review by Dr bonding equipment operator. Luiza Dobbins LPN documented in this encounter [facility] 12-25-2022 Miscellaneous Notes Protocol recommends ER. [...] is gone. 10. : No Protocols used: [id number] documented in this encounter [facility] 12-24-2022 History of Present illness Narrative [...] 2022 8:50 AM documented in this encounter [facility] documented as of this encounter (statuses as of 11/27/2022) [facility] History of Past illness Narrative* Problem Noted Date Resolved Date Knee injury 11/27/2022 11/27/2022 Fatigue 10/06/2022 11/27/2022 Right knee pain 08/17/2019 11/27/2022 Depressive disorder, not elsewhere classified 02/25/2018 documented as of this encounter (statuses as of 12/24/2022) [facility] History of Past illness Narrative* Problem Noted Date Resolved Date Knee injury 11/27/2022 11/27/2022 Fatigue 10/06/2022 11/27/2022 Right knee pain 08/17/2019 11/27/2022 Depressive disorder, not elsewhere classified 02/25/2018 documented as of this encounter (statuses as of 12/28/2022) [facility] History of Past illness Narrative* Problem Noted Date Resolved Date Knee injury 11/27/2022 11/27/2022 Fatigue 10/06/2022 11/27/2022 Right knee pain 08/17/2019 11/27/2022 Depressive disorder, not elsewhere classified 02/25/2018 documented as of this encounter (statuses as of 01/14/2023) [facility] History of Past illness Narrative* Problem Noted Date Resolved Date Knee injury 11/27/2022 11/27/2022 Fatigue 10/06/2022 11/27/2022 Right knee pain 08/17/2019 11/27/2022 Depressive disorder, not elsewhere classified 02/25/2018 documented as of this encounter (statuses as of 01/26/2023) [facility] of Past illness Narrative* Problem Noted Date Resolved Date Knee injury 11/27/2022 11/27/2022 Fatigue 10/06/2022 11/27/2022 Right knee pain 08/17/2019 11/27/2022 Depressive disorder, not elsewhere classified 02/25/2018 documented as of this encounter (statuses as of 02/22/2023) [facility] of Past [facility] Narrative* Problem Noted Date Resolved Date Knee injury 11/27/2022 11/27/2022 Fatigue 10/06/2022 11/27/2022 Right knee pain 08/17/2019 11/27/2022 Depressive disorder, not elsewhere classified 02/25/2018 documented as of this encounter (statuses as of 02/25/2023) [facility] of [facility] Narrative* Problem Noted Date Resolved Date Knee injury 11/27/2022 11/27/2022 Fatigue 10/06/2022 11/27/2022 Right knee pain 08/17/2019 11/27/2022 Depressive disorder, not elsewhere classified 02/25/2018 documented as of this encounter (statuses as of 02/27/2023) [facility] of Past [facility] Narrative* Problem Noted Date Resolved Date Knee injury 11/27/2022 11/27/2022 Fatigue 10/06/2022 11/27/2022 Right knee pain 08/17/2019 11/27/2022 Depressive disorder, not elsewhere classified 02/25/2018 documented as of this encounter (statuses as of 03/01/2023) [facility] of [facility] Narrative* Problem Noted Date Resolved Date Knee injury 11/27/2022 11/27/2022 Fatigue 10/06/2022 11/27/2022 Right knee pain 08/17/2019 11/27/2022 Depressive disorder, not elsewhere classified 02/25/2018 documented as of this encounter (statuses as of 03/11/2023) [facility] of Past [facility] Narrative* Problem Noted Date Resolved Date Knee injury 11/27/2022 11/27/2022 Fatigue 10/06/2022 11/27/2022 Right knee pain 08/17/2019 11/27/2022 Depressive disorder, not elsewhere classified 02/25/2018 documented as of this encounter (statuses as of 03/11/2023) [facility] of Past [facility] Narrative* Problem Noted Date Diagnosed Date Resolved Date Knee injury 11/27/2022 11/27/2022 Fatigue 10/06/2022 11/27/2022 Right knee pain 08/17/2019 11/27/2022 Depressive disorder, not elsewhere classified 01/21/20 07 02/25/2018 documented as of this encounter (statuses as of 05/27/2023) [facility] of [facility] Narrative* Problem Noted Date Diagnosed Date Resolved Date Knee injury 11/27/2022 11/27/2022 Fatigue 10/06/2022 11/27/2022 Right knee pain 08/17/2019 11/27/2022 Depressive disorder, not elsewhere classified 01/21/20 07 02/25/2018 documented as of this encounter (statuses as of 06/10/2023) [facility] of [facility] Narrative* Problem Noted Date Diagnosed Date Resolved Date Knee injury 11/27/2022 11/27/2022 Fatigue 10/06/2022 11/27/2022 Right knee pain 08/17/2019 11/27/2022 Depressive disorder, not elsewhere classified 01/21/20 07 02/25/2018 documented as of this encounter (statuses as of 06/30/2023) [facility] of Past [facility] Narrative* Problem Noted Date Diagnosed Date Resolved Date Knee injury 11/27/2022 11/27/2022 Fatigue 10/06/2022 11/27/2022 Right knee pain 08/17/2019 11/27/2022 Depressive disorder, not elsewhere classified 01/21/20 07 02/25/2018 documented as of this encounter (statuses as of 08/31/2023) [facility] of Past [facility] Narrative* Problem Noted Date Diagnosed Date Resolved Date Knee injury 11/27/2022 11/27/2022 Fatigue 10/06/2022 11/27/2022 Right knee pain 08/17/2019 11/27/2022 Depressive disorder, not elsewhere classified 01/21/20 07 02/25/2018 documented as of this encounter (statuses as of 09/19/2023) [facility] of Past [facility] Narrative* Problem Noted Date Diagnosed Date Resolved Date Knee injury 11/27/2022 11/27/2022 Fatigue 10/06/2022 11/27/2022 Right knee pain 08/17/2019 11/27/2022 Depressive disorder, not elsewhere classified 01/21/20 07 02/25/2018 documented as of this encounter (statuses as of 09/19/2023) [facility] Narrative* Problem Noted Date Diagnosed Date Resolved Date Knee injury 11/27/2022 11/27/2022 Fatigue 10/06/2022 11/27/2022 Right knee pain 08/17/2019 11/27/2022 Depressive disorder, not elsewhere classified 01/21/20 07 02/25/2018 documented as of this encounter (statuses as of 11/07/2023) [facility] of Past [facility] Narrative* Problem Noted Date Diagnosed Date Resolved Date Knee injury 11/27/2022 11/27/2022 Fatigue 10/06/2022 11/27/2022 Right knee pain 08/17/2019 11/27/2022 Depressive disorder, not elsewhere classified 01/21/20 07 02/25/2018 documented as of this encounter (statuses as of 12/18/2023) [facility] of Past illness Narrative* Problem Noted Date Diagnosed Date Resolved Date Knee injury 11/27/2022 11/27/2022 Fatigue 10/06/2022 11/27/2022 Right knee pain 08/17/2019 11/27/2022 Depressive disorder, not elsewhere classified 01/21/20 07 02/25/2018 documented as of this encounter (statuses as of 12/30/2023) [facility] History of Present illness Narrative* Avtar [...] or shortness of breath. No edema. Seeing [facility] and noted pain in neck and [...] W/COLLJ SPEC WHEN PFRMD 12/31/10 EMG 12/04/2015 [facility] - see scanned document ENDOMETRIAL ABLTJ [...] No history of dysuria, frequency or incontinence COMPLIANCE MONITOR: Negative for abnormal vaginal bleeding, abnormal vaginal discharge SKIN: Negative for lesions, rash, and itching All other reviewed and negative other than HPI. HEALTH MAINTENANCE: Reviewed health maintenance issues today and recommended the following in detail. BP CONTROLLED (<130/80) Never done COLORECTAL CANCER SCREENING due on 12/31/2020 MAMMOGRAM due on 01/28/2021 COVID-19 VACCINE(3 - Booster for Pfizer series) due on 06/01/2021 INFLUENZA(1) due on [...] SEASONAL QUADRIVALENT HIGH DOSE AGE 65+ - Cyber-Rain-Travtar COVID-19 BIVALENT BOOSTER VACCINE, AGE 12+ YR [...] six months and prn. [facility] Miscellaneous Notes* Telephone Encounter - Isabel Morley Ma - 10/20/2022 9:23 AM EST Pt notified via mychart that she needs to establish care with [...] 10/19/2022 4:09 PM EST Routed to provider bonding equipment operator. Kaden Polanco LPN * Telephone Encounter - Kaden Polanco LPN - 10/19/2022 4:05 PM EST Pt asking for a refill of Lexapro 20mg. Pt has not been seen since 01/28/21. Last rx was written 06/17/21 #90 with 3 refills. MC message to pt advising of need to schedule an appt to Establish Care with a new provider. Kaden Polanco LPN [facility] Miscellaneous Notes* Telephone Encounter - Emeka Desai - 06/03/2022 9:56 AM EDT Pt is scheduled for their MSK US on 06/25 at [facility]. * Telephone Encounter - Shashi Young - [...] REGION. OUTSIDE ORDER SCANNED INTO CHART/BUILT IN [facility] Preferred Provider: N/A Comment: PATIENT CURRENTLY SCHEDULED FOR 06/02/22: 11:15A AT [facility] Location: [facility] Slot held: N/A [facility] Misc[facility] Notes* Telephone Encounter - Admin Assist Deysi Inman - 06/01/2022 10:25 AM EDT Patient was scheduled for their MSK US exam on Wednesday06/02/22: 11:15A at [facility]. * Telephone Encounter - Emeka Desai - [...] REGION. OUTSIDE ORDER SCANNED INTO CHART/BUILT IN [facility] Preferred Provider: N/A Comment: N/A Location: [facility] Slot held: N/A [facility] Miscellaneous Notes* Telephone Encounter - Admin Prachi Inman - 05/05/2022 5:00 PM EDT Patient has been scheduled for their MSK US exam on Wednesday06/02/22: 11:15A at [facility]. * Telephone Encounter - Emeka Desai - 05/05/2022 2:37 PM EDT Called patient on 05/05 at 2:37 to schedule their MSK US exam. No answer, straight to , 2nd attempt. * Telephone Encounter - Emeka Desai - 05/04/2022 4:39 PM EDT Called patient on 05/04 at 4:39 to schedule their MSK US exam. No answer, straight to , 1st attempt. * Telephone Encounter - Emeka Desai - 05/04/2022 3:25 PM EDT Visit Type: US MSK1 Visit Length: 45 OR 60 MINUTES Order Name/Protocol: PLEASE HAVE PT SIGN AUTH OF RELEASE FORM. US EXTREMITY MASS/FLUID COLLECTION RT; EVAL RT POPLITEAL SPACE AT SCIATIC NERVE FOR POSSIBLE LESION. 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 OUTSIDE ORDER SCANNED INTO CHART/BUILT IN [facility] Preferred Provider: N/A Comment: N/A [facility] Slot held: N/A [facility] History of Past illness Narrative* Problem Noted Date Resolved Date Depressive disorder, not elsewhere classified 02/25/2018 documented as of this encounter (statuses as of 05/05/2022) [address]08-2007 History of Past illness Narrative* Problem Noted Date Resolved Date Depressive disorder, not elsewhere classified 02/25/2018 documented as of this encounter (statuses as of 06/01/2022) [facility] of [facility] illness Narrative* Problem Noted Date Resolved Date Depressive disorder, not elsewhere classified 02/25/2018 documented as of this encounter (statuses as of 06/03/2022) [facility] of Past illness Narrative* Problem Noted Date Resolved Date Depressive disorder, not elsewhere classified 02/25/2018 documented as of this encounter (statuses as of 10/20/2022) [facility] note* Diagnosis Situational anxiety Other anxiety states documented in this encounter [facility] note* Diagnosis Essential hypertension, benign- Primary Encounter [...] of acute poliomyelitis [facility]* Diagnosis Essential hypertension, benign- Primary [facility]* Diagnosis Situational anxiety Other anxiety states documented in this encounter [facility] note* Diagnosis Primary hypertension- Primary Unspecified essential hypertension documented in this encounter [facility] note* Diagnosis Essential hypertension, benign- Primary Enlargement of sternoclavicular joint, right Chronic right shoulder pain Pain in joint, shoulder region Screening for colon cancer Special screening for malignant neoplasms, colon documented in this encounter [facility] note* Diagnosis Primary hypertension- Primary Unspecified essential hypertension Situational anxiety Other anxiety states Essential hypertension, benign documented in this encounter [facility] note* Diagnosis Abnormal findings on diagnostic imaging of body structures- Primary Clavicle enlargement Other disorders of bone and cartilage Clavicle pain Disorder of bone and cartilage, unspecified Fatigue, unspecified type Primary hypertension Unspecified essential hypertension Situational anxiety Other anxiety states [facility]* Diagnosis Abnormal findings on diagnostic imaging of body structures Clavicle enlargement Other disorders of bone and cartilage Clavicle pain Disorder of bone and cartilage, unspecified [facility]* Diagnosis Encounter for screening mammogram for breast cancer documented in this encounter [facility] note* Diagnosis Congestive heart failure, unspecified HF chronicity, unspecified heart failure type (HCC)- Primary documented in this encounter [facility] note* Diagnosis Hypothyroidism, acquired- Primary Unspecified hypothyroidism documented in this encounter [facility] for referral (narrative)* Diagnostic Procedure Only (Routine) - Closed Specialty Diagnoses / Procedures Referred By Berenice erickson Referred To Contact [facility] Diagnoses Encounter for screening mammogram for breast cancer Procedures MARIELA SCREENING SCREENING MAMMOGRAPHY BI 2-VIEW BREAST INC Avtar Garces MD [address] [place] [address] [facility] [address] [place] [address] Referral ID Status Reason Start Date Expiration Date V isits Requested Visits Authorized [id number] Closed Auto-Generate d Referral 11/27/2022 12/27/2023 1 1 [facility] Diagnostic Procedure Only (Routine) - Closed Specialty Diagnoses / Procedures Referred By Berenice erickson Referred To Contact [facility] Diagnoses Encounter for screening mammogram for breast cancer Procedures MARIELA SCREENING SCREENING MAMMOGRAPHY BI 2-VIEW BREAST INC Avtar Garces MD [address] [place] [address] [facility] [address] [place] [address] Referral ID Status Reason Start Date Expiration Date V isits Requested Visits Authorized [id number] Closed Auto-Generate d Referral 11/27/2022 12/27/2023 1 1 [facility] Summary Purpose Family History No Family History Records FoundNo Family History Records FoundNo Family History Records FoundNo Family History Records FoundNo Family History Records Found Advance Directives No Advanced Directives Records FoundDocuments on File Type Date Recorded Patient Surgeon/President Expl anation Advance Directive(s) 12/07/2016 3:52 PM Documents on File Type Date Recorded Patient Surgeon/President Expl anation Advance Directive(s) 12/07/2016 3:52 PM Hospital Course Note [facility] DISCHARGE SUMMARY NAME ACCOUNT SEX AGE ADMIT DISCHARGE PT MED. RECORD# NUMBER DATE DATE TYPE MARIANELA BASHIR [id number] F [id number] 10/03/18 1 K [id number] ROOM: [facility] DATE OF : 1950 DICTATING PHYSICIAN: Tamica [...] cancer Procedures CONSULT TO GENERAL SURGERY OFFICE/OUTPATIENT [facility] MDM 60-74 MINUTES Avtar Chowdary MD [address] [place] [address] Referral ID Status Reason Start Date Expiration Date Visits Requested Visits Authorized [id number] Authorized PCP Requested Referral 11/27/2022 11/27/2023 1 1 Specialty Diagnoses / Procedures Referred By Berenice erickson Referred To Contact [facility] Diagnoses Encounter for screening mammogram for breast cancer Procedures MARIELA SCREENING SCREENING MAMMOGRAPHY BI 2-VIEW BREAST INC CAD Avtar Chowdary MD [address] [place] [address] [facility] [address] [place] [address] Referral ID Status Reason Start Date Expiration Date Visits Requested Visits Authorized [id number] Authorized Auto-Generat ed Referral 11/27/2022 12/27/2023 1 1 Specialty Diagnoses / Procedures Referred By Berenice erickson Referred To Contact [facility] Diagnoses Chronic right shoulder pain Procedures CONSULT TO PHYSICAL THERAPY PHYSICAL THERAPY EVALUATION HIGH COMPLEX 45 MINS Avtar Chowdary MD [address] [place] [address] [facility] [place] [address] [place] [address] Referral ID Status Reason Start Date Expiration Date Visits Requested Visits Authorized [id number] Authorized PCP Requested Referral Auto-Generate d Referral 02/22/2023 02/22/2024 99 99 Specialty Diagnoses / Procedures Referred By Berenice erickson Referred To Contact [facility] Diagnoses Chronic right shoulder pain Procedures XR SHOULDER GENERAL 3V OR MORE AP/TRUE AP/OTHER RIGHT RADEX SHOULDER COMPLETE MINIMUM 2 VIEWS Avtar Chowdary MD [address] [place] [address] X[facility] Imaging Referral ID Status Reason Start Date Expiration Date V isits Requested Visits Authorized [id number] Closed Auto-Generate d Referral 02/22/2023 03/23/2024 1 1 Specialty Diagnoses / Procedures Referred By Contac t Referred To Contact X[facility] IMAGING Diagnoses Enlargement of sternoclavicular joint, right Procedures XR STERNOCLAVICULAR JOINTS 3V AP/BOTH OBLS RADEX A-C JOINTS BI W/WO WEIGHTED DISTRCJ Avtar Chowdary MD [facility] [place] [address] Xr Imaging Referral ID Status Reason Start Date Expiration Date V isits Requested Visits Authorized [id number] Closed Auto-Generate d Referral 02/22/2023 03/23/2024 1 1 Specialty Diagnoses / Procedures Referred By Contac t Referred To Contact CT IMAGING Diagnoses Abnormal findings on diagnostic imaging of body structures Clavicle enlargement Clavicle pain Procedures CT CLAVICLE W IVCON RIGHT CT UPPER EXTREMITY W/CONTRAST MATERIAL Avtar Chowdary MD [address] [place] [address] Ct [facility] Referral ID Status Reason Start Date Expiration Date Visits Requested Visits Authorized [id number] Authorized Auto-Generat ed Referral 05/27/2023 06/25/2024 1 1 Specialty Diagnoses / Procedures Referred By Contac t Referred To Contact CT IMAGING Diagnoses Abnormal findings on diagnostic imaging of body structures Clavicle enlargement Clavicle pain Procedures CT CLAVICLE W IVCON RIGHT CT UPPER EXTREMITY W/CONTRAST MATERIAL Avtar Chowdary MD [address] [place] [address] [place] [address] Referral ID Status Reason Start Date Expiration Date V isits Requested Visits Authorized [id number] Closed Auto-Generate d Referral 05/27/2023 06/25/2024 1 1 Additional Source Comments INFORMATION SOURCE (unrecogn ized section and content) DATE CREATED AUTHOR AUTHOR'S ORGANIZ ATION 10/26/2018 Sanjiv Hunt [facility] DATE CREATED AUTHOR AUTHOR'S ORGANIZ ATION 11/13/2023 [facility] DATE CREATED AUTHOR AUTHOR'S ORGANIZ ATION 11/14/2023 [facility] DATE CREATED AUTHOR AUTHOR'S ORGANIZ ATION 01/01/2024 [facility] Source Comments (unrecognize d section and content) In the event this informatio n is protected by the Federal Confidentiality of Alcohol and Drug Abuse Patient Records regulations: The Federal rules restrict any use of the information to criminally investigate or prosecute any alcohol or drug abuse patient.[facility] HospitalIn the event this information is protected by the Federal Confidentiality of Alcohol and Drug Abuse Patient Records regulations: The Federal rules restrict any use of the information to criminally investigate or prosecute any alcohol or drug abuse patient.[facility] HospitalIn the event this information is protected by the Federal Confidentiality of Alcohol and Drug Abuse Patient Records regulations: The Federal rules restrict any use of the information to criminally investigate or prosecute any alcohol or drug abuse patient.[facility] HospitalIn the event this information is protected by the Federal Confidentiality of Alcohol and Drug Abuse Patient Records regulations: The Federal rules restrict any use of the information to criminally investigate or prosecute any alcohol or drug abuse patient.[facility] HospitalIn the event this information is protected by the Federal Confidentiality of Alcohol and Drug Abuse Patient Records regulations: The Federal rules restrict any use of the information to criminally investigate or prosecute any alcohol or drug abuse patient.[facility] HospitalIn the event this information is protected by the Federal Confidentiality of Alcohol and Drug Abuse Patient Records regulations: The Federal rules restrict any use of the information to criminally investigate or prosecute any alcohol or drug abuse patient.[facility] HospitalIn the event this information is protected by the Federal Confidentiality of Alcohol and Drug Abuse Patient Records regulations: The Federal rules restrict any use of the information to criminally investigate or prosecute any alcohol or drug abuse patient.[facility] HospitalIn the event this information is protected by the Federal Confidentiality of Alcohol and Drug Abuse Patient Records regulations: The Federal rules restrict any use of the information to criminally investigate or prosecute any alcohol or drug abuse patient.[facility] HospitalIn the event this information is protected by the Federal Confidentiality of Alcohol and Drug Abuse Patient Records regulations: The Federal rules restrict any use of the information to criminally investigate or prosecute any alcohol or drug abuse patient.[facility] HospitalIn the event this information is protected by the Federal Confidentiality of Alcohol and Drug Abuse Patient Records regulations: The Federal rules restrict any use of the information to criminally investigate or prosecute any alcohol or drug abuse patient.[facility] HospitalIn the event this information is protected by the Federal Confidentiality of Alcohol and Drug Abuse Patient Records regulations: The Federal rules restrict any use of the information to criminally investigate or prosecute any alcohol or drug abuse patient.[facility] HospitalIn the event this information is protected by the Federal Confidentiality of Alcohol and Drug Abuse Patient Records regulations: The Federal rules restrict any use of the information to criminally investigate or prosecute any alcohol or drug abuse patient.[facility] HospitalIn the event this information is protected by the Federal Confidentiality of Alcohol and Drug Abuse Patient Records regulations: The Federal rules restrict any use of the information to criminally investigate or prosecute any alcohol or drug abuse patient.[facility] HospitalIn the event this information is protected by the Federal Confidentiality of Alcohol and Drug Abuse Patient Records regulations: The Federal rules restrict any use of the information to criminally investigate or prosecute any alcohol or drug abuse patient.[facility] HospitalIn the event this information is protected by the Federal Confidentiality of Alcohol and Drug Abuse Patient Records regulations: The Federal rules restrict any use of the information to criminally investigate or prosecute any alcohol or drug abuse patient.[facility] HospitalIn the event this information is protected by the Federal Confidentiality of Alcohol and Drug Abuse Patient Records regulations: The Federal rules restrict any use of the information to criminally investigate or prosecute any alcohol or drug abuse patient.[facility] HospitalIn the event this information is protected by the Federal Confidentiality of Alcohol and Drug Abuse Patient Records regulations: The Federal rules restrict any use of the information to criminally investigate or prosecute any alcohol or drug abuse patient.[facility] HospitalIn the event this information is protected by the Federal Confidentiality of Alcohol and Drug Abuse Patient Records regulations: The Federal rules restrict any use of the information to criminally investigate or prosecute any alcohol or drug abuse patient.[facility] HospitalIn the event this information is protected by the Federal Confidentiality of Alcohol and Drug Abuse Patient Records regulations: The Federal rules restrict any use of the information to criminally investigate or prosecute any alcohol or drug abuse patient.[facility] HospitalIn the event this information is protected by the Federal Confidentiality of Alcohol and Drug Abuse Patient Records regulations: The Federal rules restrict any use of the information to criminally investigate or prosecute any alcohol or drug abuse patient.[facility] HospitalIn the event this information is protected by the Federal Confidentiality of Alcohol and Drug Abuse Patient Records regulations: The Federal rules restrict any use of the information to criminally investigate or prosecute any alcohol or drug abuse patient.[facility] HospitalIn the event this information is protected by the Federal Confidentiality of Alcohol and Drug Abuse Patient Records regulations: The Federal rules restrict any use of the information to criminally investigate or prosecute any alcohol or drug abuse patient.[facility] HospitalIn the event this information is protected by the Federal Confidentiality of Alcohol and Drug Abuse Patient Records regulations: The Federal rules restrict any use of the information to criminally investigate or prosecute any alcohol or drug abuse patient.[facility] HospitalIn the event this information is protected by the Federal Confidentiality of Alcohol and Drug Abuse Patient Records regulations: The Federal rules restrict any use of the information to criminally investigate or prosecute any alcohol or drug abuse patient.[facility] Reason for Visit (unrecogniz ed section and content) Reason Comments RESCHEDULE Reason Comments APPT RESCHEDULE REQUEST Reason Onset Date Comments Refill Request 10/17/2022 Reason Comments Medicare Wellness Exam Reason Onset Date Comments Population Health Navigation Outreach 12/24/2022 [facility] Reason Comments Blood Pressure Check Reason Onset Date Comments Refill Request 01/13/2023 Reason Comments Lump Reason Comments Results Reason Comments Recheck 1 month BP check Reason Comments Nose Bleed Reason Comments 6 Month Exam Reason Onset Date Comments Population Health Navigation Outreach 08/30/2023 [facility] Reason Comments Radiology CT Specialty Diagnoses / Procedures Referred By Contac t Referred To Contact CT IMAGING Diagnoses Abnormal findings on diagnostic imaging of body structures Clavicle enlargement Clavicle pain Procedures CT CLAVICLE W IVCON RIGHT CT UPPER EXTREMITY W/CONTRAST MATERIAL Avtar Chowdary MD [address] [place] [address] [place] [address] Referral ID Status Reason Start Date Expiration Date V isits Requested Visits Authorized [id number] Closed Auto-Generate d Referral 05/27/2023 06/25/2024 1 1 Reason Comments Results Heart failure Care Teams (unrecognized sec tion and content) Software Development Manager Relationship Specialty Start Date End Date Luzmaria Huizar III, MD PCP - General 02/12/10 Software Development Manager Relationship Specialty Start Date End Date Luzmaria Huizar III, MD PCP - General 02/12/10 Software Development Manager Relationship Specialty Start Date End Date Luzmaria Huizar III, MD PCP - General 02/12/10 10/19/22 Software Development Manager Relationship Specialty Start Date End Date Avtar Chowdary MD [address] [facility] [address] PCP - General Internal Medicine 11/27/22 Software Development Manager Relationship Specialty Start Date End Date Avtar Chowdary MD [address] [facility] [address] PCP - General Internal Medicine 11/27/22 Software Development Manager Relationship Specialty Start Date End Date Avtar Chowdary MD [address] [facility] [address] PCP - General Internal Medicine 11/27/22 Software Development Manager Relationship Specialty Start Date End Date Avtar Chowdary MD [address] [place] [address] PCP - General Internal Medicine 11/27/22 Software Development Manager Relationship Specialty Start Date End Date Avtar Chowdary MD [address] [facility] [address] PCP - General Internal Medicine 11/27/22 Software Development Manager Relationship Specialty Start Date End Date Avtar Chowdary MD [address] [place] [address] PCP - General Internal Medicine 11/27/22 Software Development Manager Relationship Specialty Start Date End Date Avtar Chowdary MD [address] [place] [address] PCP - General Internal Medicine 11/27/22 Software Development Manager Relationship Specialty Start Date End Date Avtar Chowdary MD [address] [place] [address] PCP - General Internal Medicine 11/27/22 Software Development Manager Relationship Specialty Start Date End Date Avtar Chowdary MD [address] [facility] [address] PCP - General Internal Medicine 11/27/22 Software Development Manager Relationship Specialty Start Date End Date Avtar Chowdary MD [address] [place] [address] PCP - General Internal Medicine 11/27/22 Software Development Manager Relationship Specialty Start Date End Date Avtar Chowdary MD [address] [place] [address] PCP - General Internal Medicine 11/27/22 Software Development Manager Relationship Specialty Start Date End Date Avtar Chowdary MD [address] [place] [address] PCP - General Internal Medicine 11/27/22 Software Development Manager Relationship Specialty Start Date End Date Avtar Chowdary MD [address] [facility] [address] PCP - General Internal Medicine 11/27/22 Software Development Manager Relationship Specialty Start Date End Date Avtar Chowdary MD [address] [place] [address] PCP - General Internal Medicine 11/27/22 Software Development Manager Relationship Specialty Start Date End Date Avtar Chowdary MD [address] [place] [address] PCP - General Internal Medicine 11/27/22 Software Development Manager Relationship Specialty Start Date End Date Avtar Chowdary MD [address] [place] [address] PCP - General Internal Medicine 11/27/22 Software Development Manager Relationship Specialty Start Date End Date Avtar Chowdary MD [address] [place] [address] PCP - General Internal Medicine 11/27/22 Software Development Manager Relationship Specialty Start Date End Date Avtar Chowdary MD [address] [place] [address] PCP - General Internal Medicine 11/27/22 Software Development Manager Relationship Specialty Start Date End Date Avtar Chowdary MD [address] [place] [address] PCP - General Internal Medicine 11/27/22 FOR [...] BE BASED ON THE PRIMARY CLINICAL RECORDS. [facility] [employer] [facility]. provides no warranty or guarantee of the accuracy or completeness of information in this document.
[2024-01-02 21:11] VITALS: BP 157/88; PULSE 55; RESP 16; O2SAT 98
[2024-01-02 21:12] LABS: Absolute Lymphocyte Count 1.95 X10^3/uL (0.83-4.51); Absolute Neutrophil Count 3.8 X10^3/uL (2.0-7.7); Basophil# 0.08 X10^3/uL; Basophil% 1.2 % (0-1); Eosinophil# 0.09 X10^3/uL; Eosinophils% 1.4 % (0-5); Hematocrit 45.6 % (37-47); Hemoglobin 14.3 g/dL (12.0-15.0); Lymphocyte # 1.95 X10^3/ul (0.83-4.51); Lymphocyte % 29.9 % (19-41); Mean Corp Hgb Conc 31.4 g/dL (32-36); Mean Corpuscular Hgb 28.6 pg (27.0-32.0); Mean Corpuscular Volume 91.2 fL (81-99); Mean Platelet Vol. 10.2 fl (6.2-12.0); Monocyte# 0.58 X10^3/uL; Monocyte% 8.9 % (0-10); NRBC Flagged by Analyzer 0 % (0-5); Neutrophil % 58.1 % (47-70); Platelet Count 294 K/mm3 (150-450); RBC Distribution Width CV 13.2 % (11.6-14.6); RBC Distribution Width SD 43.9 fl (35.1-43.9); White Blood Count 6.5 K/mm3 (4.4-11.0)
[2024-01-02 21:29] LABS: Anion Gap 5 (5-15); BUN 25 mg/dL (7-18); BUN/Creat Ratio 23.8 RATIO (10-20); Calcium,Total 9.5 mg/dL (8.5-10.1); Chloride 102 mmol/L (98-107); Creatinine, Serum 1.05 mg/dL (0.55-1.02); EST Glomerular Filtration Rate 55 mL/min (>60); Est Glom Filt Rate - Afr Amer 66 mL/min (>60); Estimated Creatinine Clearance 48.92 ml/min; Glucose 95 mg/dL (74-106); Potassium 3.8 mmol/L (3.5-5.1); Sodium Level 137 mmol/L (136-145); Troponin-I HS (w/2H Reflex) 10 pg/mL (3.0-54.0)
[2024-01-02 21:45] VITALS: BP 152/83; PULSE 55; RESP 16; TEMP 36.7; O2SAT 98
[2024-01-02 23:05] LABS: Reflex Troponin-HS? (from REC) Y
== END 2024-01-02 21:48 | disposition home or self-care (01) ==
PROVIDERS: Physician Assistant; Emergency Provider Emergency Medicine; PCP Family Medicine; Visit Provider Emergency Medicine
DX: R06.09 Other forms of dyspnea (principal); I11.0 Hypertensive heart disease with heart failure; I50.9 Heart failure, unspecified; I48.91 Unspecified atrial fibrillation; E78.5 Hyperlipidemia, unspecified; Z79.01 Long term (current) use of anticoagulants; Z79.899 Other long term (current) drug therapy; M25.512 Pain in left shoulder
CPT/HCPCS: 71046; 80048; 84484; 85025; 93005; 99284; A4216

== ENCOUNTER → 2024-01-20 | Outpatient (CLI) | payer MEDICARE, OTHER, SELFPAY ==
--- OUTSIDE RECORDS SUMMARY | 2024-01-20 06:29 | XMS RPT_ITS | CCD ---
Author Name Unknown Address [address] [place] [address] Organization [facility] Care Team Providers Care Clothing Consultant Name Role Phone YANG WRIGHT DR Unavailable [...] Unavailable Unavailable YANG WRIGHT DR Unavailable Unavailable EMMA LUZMARIA III Unavailable Unavailable PROVIDER, UNKNOWN Unavailable Unavailable Emma CASIANO MD, Luzmaria A Primary Care Provider Suly vailable Emma CASIANO MD, Frank A Primary Care Provider Suly vailaAvtar Tijerina MD Primary Care Provider AVTAR CHOWDARY Primary Care Unavailable MIRTHA SOUZA [...] sources) Lisinopril; Translations: [LISINOPRIL] Drug Allergy 0 [facility] (20 sources) Potassium Chloride; Translations: [POTASSIUM CHLORIDE] Drug Allergy 9 Rash [facility] Work Phone: (20 sources) Simvastatin; Translations: [SIMVASTATIN] Drug Allergy 0 [facility] (3 sources) Thiazides; Translations: [THIAZIDES] Drug Intolerance 7 GI Upset [facility] (20 sources) ENVIRONMENTAL [Other] Propensity to adverse reactions 5 [facility] Work Phone: (20 sources) Thiazides Drug Intolerance 7 GI Upset [facility] (1 source) OTHER; Translations: [OTHER] Propensity to adverse reactions (disorder) 5 [facility] Repository Medications Current Medications Medication Drug Class(es) Dates Sig (Normalized) Sig (Original) apixaban 5 mg oral tablet (3 sources) Factor Xa Inhibitor Start: 11-09-2023 End: [...] unspecified] Onset: 02-25-2018 02-25-2018 Chronic Cardiac dysrhythmias (4 sources) Atrial fibrillation; Translations: [Unspecified atrial fibrillation] Onset: 11-09-2023 11-09-2023 Chronic Congestive heart failure; nonhypertensive (7 sources) Acute on chronic combined systolic (congestive) [...] disorders of bone, shoulder] 05-27-2023 Episodic Other [place]ER [place] infection and poliomyelitis (20 sources) Post poliomyelitis [...] conditions (not mental disorders or infectious disease) (5 sources) Raised TSH level; Translations: [Other specified [...] Translations: [Clavicle pain] Onset: 06-10-2023 Episodic Other [place] infection and poliomyelitis (20 sources) H/O: poliomyelitis; [...] 82 mm[Hg] Avtar Chowdary MD Work Phone: [facility] 05-27-2023 11:46-0400 Systolic blood pressure 126 mm[Hg] Avtar Chowdary MD Work Phone: [facility] 05-27-2023 10:32-0400 Body height 149.9 cm Avtar Chowdary MD Work Phone: [facility] 05-27-2023 10:32-0400 Body weight 93.98 kg Avtar Chowdary MD Work Phone: [facility] 05-27-2023 10:32-0400 Heart rate 75 /min Avtar Chowdary MD Work Phone: [facility] 05-27-2023 10:32-0400 SaO2% (BldA) [Mass fraction] 97 % Avtar Chowdary MD Work Phone: [facility] 02-26-2023 13:30-0400 Diastolic blood pressure 78 mm[Hg] Meka Haagen CAR FERRY CAPTAIN.LINE RIDER Work Phone: [facility] 02-26-2023 13:30-0400 Heart rate 68 /min Meka Haagen CAR FERRY CAPTAIN.LINE RIDER Work Phone: [facility] 02-26-2023 13:30-0400 Respiratory rate 18 /min Meka Haagen CAR FERRY CAPTAIN.LINE RIDER Work Phone: [facility] 02-26-2023 13:30-0400 SaO2% (BldA) [Mass fraction] 97 % Meka Haagen CAR FERRY CAPTAIN.LINE RIDER Work Phone: [facility] 02-26-2023 13:30-0400 Systolic blood pressure 124 mm[Hg] Meka Haagen CAR FERRY CAPTAIN.LINE RIDER Work Phone: [facility] 02-22-2023 11:47-0400 Body height 149.9 cm Avtar Chowdary MD Work Phone: [facility] 02-22-2023 11:47-0400 Body weight 92.17 kg Avtar Chowdary MD Work Phone: [facility] 02-22-2023 11:47-0400 Diastolic blood pressure 81 mm[Hg] Avtar Chowdary MD Work Phone: [facility] 02-22-2023 11:47-0400 Heart rate 76 /min Avtar Chowdary MD Work Phone: [facility] 02-22-2023 11:47-0400 Systolic blood pressure 128 mm[Hg] Avtar Chowdary MD Work Phone: [facility] 12-28-2022 09:37-0500 Diastolic blood pressure 91 mm[Hg] Mi Nurse Work Phone: [facility] 12-28-2022 09:37-0500 Heart rate 63 /min Mi Nurse Work Phone: [facility] 12-28-2022 09:37-0500 Systolic blood pressure 161 mm[Hg] Mi Nurse Work Phone: [facility] 11-27-2022 13:00-0500 Body height 149.9 cm Avtar Chowdary MD Work Phone: [facility] 11-27-2022 13:00-0500 Body weight 91.17 kg Avtar Chowdary MD Work Phone: [facility] 11-27-2022 13:00-0500 Diastolic blood pressure 70 mm[Hg] Avtar Chowdary MD Work Phone: [facility] 11-27-2022 13:00-0500 Heart rate 66 /min Avtar Chowdary MD Work Phone: [facility] 11-27-2022 13:00-0500 SaO2% (BldA) [Mass fraction] 99 % Avtar Chowdary MD Work Phone: [facility] 11-27-2022 13:00-0500 Systolic blood pressure 146 mm[Hg] Avtar Chowdary MD Work Phone: [facility] Encounters Encounter Date Encounter Type Care Provider [...] Avtar Chowdary MD Work Phone: Start: 11-27-2022 PFIZER-BIONTFilmCrave COVI D-19 BIVALENT BOOSTER VACCINE, AGE 12+ YR Avtar Chowdary MD Work Phone: Start: 01-29-2020 Mammography Emeka nielsen PSS Start: 12-31-2010 Colonoscopy Emeka nielsen PSS Plan of Treatment Date Care Activity Detail Author Start: 12-02-2027 Lipid 1996 panel - S dinora or Plasma Lipid Screening [facility] Start: 12-02-2027 Lipid panel Lipid Screening [facility] Start: 12-02-2027 LIPID SCREEN LIPID SCREEN [facility] Start: 12-15-2026 [facility] Start: 11-07-2026 [facility] Start: 05-27-2026 DIABETES SCREEN DIABETES SCREEN [facility] Start: 05-27-2026 Diabetes Screening Diabetes Screenin g [facility] Start: 03-12-2026 COLOGUARD (FIT-DNA) COLOGUARD (FIT-D NA) [facility] Start: 03-12-2026 COLORECTAL CANCER SCREENING COLORECTAL CANCER SCREENING [facility] Start: 03-12-2026 Screening for malign ant neoplasm of colon [facility] Start: 12-02-2025 DIABETES SCREEN DIABETES SCREEN [facility] Start: 12-20-2024 Annual PCP Team Food Specialist tami Disease Visit Annual PCP Team Chronic Disease Visit [facility] Start: 12-20-2024 BP Controlled (<130/80) BP Controlle d (<130/80) [facility] Start: 12-20-2024 Covid-19 Vaccine ( season) Covid-19 Vaccine () [facility] Immunizations Immunization Date Immunization Notes Care Provider Kendall ellis 11-27-2022 COVID-19 booster vaccine, age 12+ yr, bivalent (PFIZER-BIONTFilmCrave) Avtar Chowdary MD Work Phone: [facility] 11-27-2022 influenza, high-dose , quadrivalent vaccine (FLUZONE HIGH DOSE QUADRIVALENT) Avtar Chowdary MD Work Phone: [facility] 11-27-2022 influenza virus vacc ine, unspecified formulation Moriah Reyes MA [facility] 08-21-2021 influenza, high-dose , quadrivalent vaccine (FLUZONE HIGH DOSE QUADRIVALENT) Avtar Chowdary MD Work Phone: [facility] 09-05-2020 influenza, high dose seasonal, preservative-free [facility] 09-05-2020 influenza, high-dose , quadrivalent vaccine (FLUZONE HIGH DOSE QUADRIVALENT) Avtar Chowdary MD Work Phone: [facility] 09-25-2019 influenza, high dose seasonal, preservative-free [facility] 08-06-2018 influenza, high dose seasonal, preservative-free [facility] 02-25-2018 pneumococcal polysaccharide vaccine, 23 valent [facility] 08-16-2017 influenza, high dose seasonal, preservative-free [facility] 12-07-2016 pneumococcal conjuga te vaccine, 13 valent [facility] 03-06-2015 zoster vaccine, live [facility] Work Phone: 08-07-2009 tetanus and diphther ia toxoids, not adsorbed, for adult use [facility] Payers Date Payer Category Payer Medicare [id number] 2016 Private Health Insurance [employer] A ETNA MEDICARE SUPPLEMENT [id number] 2016-Present [phone] [address] [address] [place] [address] Indemnity [id number] 2016 Private Health Insurance [id number] 2016 Medicare [id number] 2016 Medicare MEDICARE MEDICAR E A AND B [id number] 2016-Present [phone] [place] [address] Medicare [id number] 2016 Medicare MEDICARE MEDICAR E A AND B [id number] 2016-Present [phone] [place] [address] Medicare [id number] 1950 Unknown [id number] 1950 Unknown [id number] 1950 Unknown [id number] Medicare [id number] Medicare [id number] Social History Date Type Detail Facility Start: 08-26-2011 Tobacco smoking stat [facility] Never smoked tobacco [facility] Start: 09-25-2019 End: 12-20-2023 Alcohol intake Current non-drinker of alcohol (finding) [facility] Start: 1950 Sex Assigned At Not on file [facility] Start: 04-25-2022 End: 05-05-2022 Exposure to SARS-CoV-2 (event) Not sure [facility] Start: 08-26-2011 Tobacco use and exposure Smokeless tobacco non-user [facility] Work Phone: Start: 05-22-2019 End: 05-27-2023 History of Social function [facility] Start: 05-22-2019 End: 05-27-2023 Tobacco use panel [facility] Adult Depression Screening Assessment 0 [facility] Clinical Notes 01-20-2007 to 01-04-2024 Telephone Encounter - Adilia Hodges RN - 01/04/2024 9:44 AM ESTTelephone Encounter - Adilia Hodges RN - 12/29/2023 3:29 PM Moriah Velazco MA - 08/30/2023 10:22 AM EDT Note Date & Type Note Facility 01-04-2024 Miscellaneous Notes See TE 12/29/2023 Results. Adilia Hodges RN Patient calls to let provider know that Dr. Elsy Witt's office called her with TSH results of 5.3 and told her to contact PCP as she needs treatment for underactive thyroid. Results are scanned in under labs. Adilia Hodges RN documented in this encounter [facility] 12-30-2023 Miscellaneous Notes Pt called and is notified of providers message and instructions. Pt voices understanding. Sarah Blanton RN Sorry, in next few weeks Spoke with patient and informed. When should she recheck labs? Has 6 month follow up with you in June. F/U sooner? Anita Petersen That thyroid level is barely abnormal and usually not significant. Recheck labs and then follow up. documented in this encounter [facility] 12-20-2023 Note HNO ID: [id number] Author: AVTAR CHOWDARY MD Service: ? Author [...] See previous OV note 11/22/23: Admitted into [facility] 11/07/23 Discharged 11/09/23 Diagnoses:CHF, a fib. [...] W/COLLJ SPEC WHEN PFRMD 12/31/10 EMG 12/04/2015 [facility] - see scanned document ENDOMETRIAL ABLTJ THERMAL W/O HYSTEROSCOPIC GUID LIG/TRNSXJ FLP TUBE ABDL/VAG APPR UNI/BI Tubal ligation TONSILLECTOMY PRIMARY/SECONDARY Tonsillectomy FAMILY HISTORY Problem Relation Age of Onset Heart Mother Smoker (more content not included)... [facility] 12-16-2023 Miscellaneous Notes Pt called and is notified of providers results and instructions. Pt voices understanding. Pt has a 4 week f/u with provider next week. Pt denies any SOB or edema. She states she is just tired. She wanted to let provider know she has an appointment with Dr Witt on 12/29/23 with [facility]. Sarah Blanton, RN Labs are improving. Mag is improving as well. Recheck labs in one month. How feeling? Any shortness of breath or edema. documented in this encounter [facility] 11-22-2023 Note HNO ID: [id number] Author: AVTAR CHOWDARY MD Service: ? Author Type: Physician Type: Progress Notes Filed: 11/22/2023 11:55 Note Text: Patient presents with: Hospital Follow Up HPI: Patient presents today for office visit for hospital follow up./TCM Admitted into [facility] 11/07/23 Discharged 11/09/23 Diagnoses:CHF, a fib. Elevated tsh Dyspnea. Symptoms concerning CHF. A-fib. Started on Eliquis. HTN. Continuing on Amlodipine and Losartan. Started on Aldactone. [facility] put her on Furosemide 20 mg 11/06/23. [...] W/COLLJ SPEC WHEN PFRMD 12/31/10 EMG 12/04/2015 [facility] - see scanned document ENDOMETRIAL ABLTJ THERMAL [...] appearance: Well appearing, (more content not included)... [facility] 11-18-2023 Note HNO ID: [id number] Author: POLLY DORAN RN Service: ? 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 plan for next outreach: Will follow up [facility] Education Ordered -: No Polly Doran RN November 18, 2023 [facility] 11-18-2023 Note Patient Outreach (AM [facility]) MARIANELA BASHIR ([id number]) 1950 F Date Time Provider Department 11/18/23 POLLY DORAN AMBDONNAG During your visit today, we recorded the following information about you: Polly Doran RN 11/18/2023 2:12 PM Signed TRANSITION CARE MANAGEMENT (TCM) FOLLOW-UP NOTE Provider Action/ANGY Spoke with pt Reports feeling great Tolerating Eliquis and spironolactone without adverse effect Confirmed PCP follow up appt 11/22 No questions or needs Advised to call PCP with new/worsening symptoms Cardiology is facilitating follow up appt in a separate encounter, pt aware Patient identified by name and date of : NO Spoke to patient Discharge Network Status: In-Network Discharge Summary: DC'd from [facility] on 11/09 for new onset CHF Stadium Attendant plan for next outreach: Will follow up [facility] Education Ordered -: No Polly Doran RN November 18, 2023 Allergies As of Date: 11/18/2023 Noted Allergy Reaction HCTZ (THIAZIDES) 12/07/2016 8 - GI Upset LISINOPRIL 03/31/2010 Comments: cough POTASSIUM CHLORIDE 01/27/2019 2 - Rash Comments: Madie AGRAWAL (SIMVASTATIN) 07/09/2010 Comments: vomitting Date Reviewed: 11/07/2023 [...] Encounter Status:Closed by POLLY DORAN on 11/18/23 [facility] 11-10-2023 Note Patient Outreach (AM [facility]) MARIANELA BASHIR ([id number]) 1950 F Date Time Provider Department 11/10/23 POLLY DORAN [facility] During your visit today, we recorded the [...] to call PCP with new/worsening symptoms Polly Doran, SHERINE SUMMARY: Discharge Network Status: In-Network Discharge Pt discharged from [facility] on 11/09/23. Admitted for: CHF/afib Contact made with patient: Yes Hi my name is Polly Doran RN and I am calling from the [facility] on behalf of your PCP, Avtar Chowdary [...] like to speak with a social work team assembly line machine operator to help give you support for any [...] I will send your request to a project scheduler who will contact and assist you [...] CHLORIDE 01/27/2019 2 - Rash Comments: Madie ZOCOR (SIMVASTATIN) 07/09/2010 Comments: vomitting Date Reviewed: 11/07/2023 Reviewed by: Caryn Meier RN - Fully Assessed Reason for Visit: Transition Of Care [4074] Cmt: [facility], initial outreach Prescriptions as of 11/10/2023 - apixaban (ELIQUIS) 5 mg tab(s) Take 1 tablet by mouth two times a day. - spironolactone (ALDACTONE) 25 mg tablet Take 1 tablet by mouth once daily. - furosemide (LASIX) 20 mg tablet Take 1 tablet by mouth on (more content not included)... [facility] 11-10-2023 Note HNO ID: [id number] Author: Polly Doran RN Service: ? Author [...] Network Status: In-Network Discharge Pt discharged from [facility] on 11/09/23. Admitted for: CHF/afib Contact made with patient: Yes Hi my name is Polly Doran RN and I am calling from the [facility] on behalf of your PCP, Avtar Chowdary [...] like to speak with a social work team assembly line machine operator to help give you support for any [...] I will send your request to a project scheduler who will contact and assist you [...] (or call on the way if possible). [facility] Education Ordered -: No [place] [address]-26-2023 Note HNO ID: [id number] Author: Alyson Coelho CPhT Service: Pharmacy Author Type: Reservation Clerk Type: Plan of Care Filed: 11/09/2023 4:07 PM Note Text: PHARMACY BEDSIDE DELIVERY SERVICE Patient Name: Marianela Bashir The marked outpatient medications were Filled at: [facility] and delivered to the patient's bedside to [...] or your Primary Care Provider. Alyson Coelho CPhT PAGER: Alyson Coelho [phone] 11/09/23 4:07 PM November 09, 2023 4:06 PM [facility] 11-09-2023 Note HNO ID: [id number] Author: Tiesha Adamson RN Service: Care Management [...] 09, 2023 TIME: 4:00 PM PAGER/CONTACT #: [phone] [facility] 11-09-2023 Note HNO ID: [id number] Author: Tiesha Adamson RN Service: Care Management Author Type: Registered Nurse Type: Care Mgt Initial Assessment Filed: 11/09/2023 1:31 PM Note Text: CARE MANAGEMENT: ASSESSMENT AND DISCHARGE PLAN SERVICE DATE: November 09, 2023 SERVICE TIME: 1:20 PM PCP: Avtar Chowdary MD Primary Contact: Extended Emergency Contact Information Primary Emergency Contact: Yo Bashir Address: [facility] [place] [id number] Mobile Relation: Spouse Admission Status: Inpatient Insurance [...] Be able to go home, General wellness [place] Explained: Are you interested in [...] the stairs. 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 [email or web address] [place] D/C plan is to return home with spouse when medically ready. SIGNATURE: Tiesha Adamson RN PATIENT NAME: Marianela Bashir DATE: November 09, 2023 TIME: 1:18 PM CONTACT #: [phone] [facility] 11-09-2023 Note HNO ID: [id number] Author: Seb Noe MD Service: Hospital Medicine Author Type: Physician Type: Progress Notes Filed: 11/09/2023 9:03 AM Note Text: DEPARTMENT OF HOSPITAL MEDICINE PROGRESS NOTE SERVICE DATE: 11/09/2023 SERVICE TIME: 6:31 AM Hospital Medicine/Primary Attending: Seb Noe MD NIGHT AND WEEKEND COVERAGE: [place] COVERAGE: After 7pm, please call cross cover pager #[phone] Subjective INTERVAL HPI: Patient seen and examined. Epic reviewed. NAEON . MEDICATIONS: Reviewed Objective PHYSICAL EXAM: BP [...] Seb Noe MD Internal Medicine Pager: Team Danii 11/09/23 6:31 AM [facility] 11-08-2023 Note HNO ID: [id number] Author: Ajay Reyes MD Service: Hospital Medicine Author Type: Fellow Type: Progress Notes Filed: 11/08/2023 1:27 PM Note Text: DEPARTMENT OF HOSPITAL MEDICINE PROGRESS NOTE SERVICE DATE: 11/08/2023 SERVICE TIME: 1:23 PM Hospital Medicine/Primary Attending: Ajay reyes MD NIGHT AND WEEKEND COVERAGE: [place] NAWC COVERAGE: After 7pm, please call cross cover pager #[phone] Subjective INTERVAL HPI: Admitted last night with [...] Vascular Medicine November 08, 2023 1:26 PM [facility] 11-07-2023 Miscellaneous Notes Patient given results and verbalized understanding of instructions given. Kristin Smith Unable to reach patient. Mailbox full/Mailbox not set up/ Number incorrect. Please try again later. Kristin Smith Her heart failure lab was significantly elevated. Since this is a new issue for her, I recommend ER evaluation this weekend. documented in this encounter [facility] 11-06-2023 Note HNO ID: [id number] Author: Benjamin Ba RT(R) Service: ? Author [...] RT Jason(R) November 06, 2023 10:14 AM [facility] 11-06-2023 Note HNO ID: [id number] Author: Halima Irizarry APRN.LINE RIDER Service: ? Author Type: Nurse Practitioner Type: [...] W/COLLJ SPEC WHEN PFRMD 12/31/10 EMG 12/04/2015 [facility] - see scanned document ENDOMETRIAL ABLTJ THERMAL [...] - FUROSEMIDE 20 MG TABLET Halima Irizarry APRN.LINE RIDER Plan discussed with collaborating physician Dr. Kumar [facility] 08-30-2023 Note Patient Outreach (NE TNAV) MARIANELA BASHIR ([id number]) 1950 F Date Time Provider Department 08/30/23 MORIAH REYES NETHAMIDAV During your visit today, we recorded the following information about you: Moriah Reyes MA 08/30/2023 2:57 PM Signed POPULATION HEALTH NAVIGATION OUTREACH Action/ LV Nymirum MESSAGE SENT ANNUAL MEDICARE WELLNESS EXAM after 12-07-23 BP Controlled (<130/80) Never done Influenza Vaccine(1) due on 07/16/2023 Patient Identified by Name and : NO Outreach Outcome/Action Unable to reach patient: Left message KUBOOt message sent Did you use a PCP [...] Encounter Status:Closed by MORIAH REYES on 08/30/23 [facility] 08-30-2023 Note HNO ID: [id number] Author: Moriah Reyes MA Service: ? Author Type: Budget Specialist Type: Progress Notes Filed: 08/30/2023 2:57 PM Note Text: POPULATION HEALTH NAVIGATION OUTREACH Action/I [facility] MYCHART MESSAGE SENT ANNUAL MEDICARE WELLNESS EXAM [...] Reyes MA August 30, 2023 10:22 AM [facility] 08-30-2023 History of Present illness Narrative POPULATION HEALTH NAVIGATION OUTREACH Action/FYI [facility] MYCHART MESSAGE SENT ANNUAL MEDICARE WELLNESS EXAM [...] 2023 10:22 AM documented in this encounter [facility] 06-10-2023 Miscellaneous Notes Patient calls and notified of results and providers instructions. Patient verbalizes understanding. Adilia Hodges RN Message left for pt to call back for results. Isabel Morley MA Ct does not show any tumors etc. Shows severe degenerative changes(arthritic) changes at that point. Call if worsens. documented in this encounter [facility] 06-10-2023 Note HNO ID: [id number] Author: Medina Ramires RT(R) Service: ? Author Type: Promotions Assistant Type: Progress Notes Filed: 06/10/2023 1:36 PM [...] iv contrast SIGNATURE: RT Kurt(R) PATIENT NAME: Marainela Bashir DATE: June 10, 2023 TIME: 1:35 PM [facility] 06-10-2023 History of Present illness Narrative Radiology [...] TIME: 1:35 PM documented in this encounter [facility] 05-27-2023 Note HNO ID: [id number] Author: Avtar Chowdary MD Service: ? Author [...] W/COLLJ SPEC WHEN PFRMD 12/31/10 EMG 12/04/2015 [facility] - see scanned document ENDOMETRIAL ABLTJ THERMAL [...] 6. Psych: Doing well. Avtar Chowdary MD [facility] 05-27-2023 History of Present illness Narrative Patient [...] W/COLLJ SPEC WHEN PFRMD 12/31/10 EMG 12/04/2015 [facility] - see scanned document ENDOMETRIAL ABLTJ THERMAL [...] Avtar Chowdary MD documented in this encounter [facility] 03-09-2023 Miscellaneous Notes March 10, 2023 PID: [id number] Marianela Bashir [address] [address] Dear Ms. Bashir, We are pleased to [...] report will be kept on file at [facility] as part of your permanent medical record and are available for your continuing care. Thank you for allowing us to help in meeting your health care needs. Sincerely, Dr. Hernandez Interpreting Radiologist [facility] (Normal over 40) documented in this encounter [facility] 02-26-2023 Note HNO ID: [id number] Author: Meka Grove APRN.LINE RIDER Service: ? Author Type: Nurse Practitioner Type: [...] W/COLLJ SPEC WHEN PFRMD 12/31/10 [facility] 12/04/2015 [facility] [facility] - see scanned document ENDOMETRIAL ABLTJ THERMAL [...] APRN.ILAN This note was partially generated using SNADEC voice recognition system. Note was reviewed for accuracy. There may be minor misspellings or grammar miscues with SNADEC voice recognition. [facility] 02-26-2023 Instructions Meka Grove APRN.ILAN - 02/26/2023 1:45 PM EDT Continue the same medication. Recheck as scheduled. documented in this encounter [facility] 02-26-2023 History of Present illness Narrative This [...] W/COLLJ SPEC WHEN PFRMD 12/31/10 EMG 12/04/2015 [facility] - see scanned document ENDOMETRIAL ABLTJ THERMAL [...] as needed for worsening/no improvement. Meka Grove APRN.LINE RIDER This note was partially generated using SNADEC voice recognition system. Note was reviewed for accuracy. There may be minor misspellings or grammar miscues with SNADEC voice recognition. documented in this encounter [facility] 02-25-2023 Miscellaneous Notes CD/report READY FOR VISITOR SERVICES ASSISTANT AT [facility] L/m for pt Patient is requesting disc and report of X-rays from 02/22/23. Please notify the patient when they are ready for picker operator. Thank you. documented in this encounter [facility] 02-24-2023 Miscellaneous Notes Spoke with patient and informed of result. She verbalized understanding. Anita Petersen Xray shows what is mainly degenerative changes in the shoulder. Did she ever dislocate the shoulder.. would refer to ortho. I think she has seen [facility] in the past. The clavicle just looks like the bone is very large where it is sticking out. We could consider further imaging of her clavicle if it enlarges. documented in this encounter [facility] 02-22-2023 Note HNO ID: [id number] Author: RT Suleiman(Jae) Service: Nuclear Medicine Author Type: Technologist Type: [...] RT Suleiman(R) February 22, 2023 12:18 PM [facility] 02-22-2023 Note HNO ID: [id number] Author: Avtar Chowdary MD Service: ? Author [...] completed and were normal. Dr. Wright with [facility] suggested ultrasound. Had been seeing [facility] for neck and back pain. Had a [...] W/COLLJ SPEC WHEN PFRMD 12/31/10 EMG 12/04/2015 [facility] - see scanned document ENDOMETRIAL ABLTJ THERMAL [...] cancer - ICD9: V76.51, ICD10: Z12.11 - COLOGASHLEY Chowdary MD [facility] 02-22-2023 History of Present illness Narrative Patient presents with: Lump HPI: Patient presents today for office visit for lump she's noticed on the right side of her clavicle since February 13. Lump does not cause any pain. Having trouble with pain throughout left shoulder and down back of neck. Cannot lift anything heavy. X-ray and MRI completed and were normal. Dr. Wright with [facility] suggested ultrasound. Had been seeing [facility] for neck and back pain. Had a [...] W/COLLJ SPEC WHEN PFRMD 12/31/10 EMG 12/04/2015 [facility] - see scanned document ENDOMETRIAL ABLTJ THERMAL [...] Avtar Chowdary MD documented in this encounter [facility] 01-25-2023 Miscellaneous Notes Pt notified of 's [...] Luiza Dobbins LPN documented in this encounter [facility] 01-25-2023 Note HNO ID: [id number] Author: Luiza Dobbins LPN Service: ? Author [...] after review by PCP. Luiza Dobbins LPN [facility] 01-13-2023 Miscellaneous Notes Patient phones requesting refills as follows: Requested Prescriptions Pending Prescriptions Disp Refills escitalopram oxalate (LEXAPRO) 20 mg tablet 90 tablet 0 Sig: Take 1 tablet by mouth once daily. LOLY-11/27/22 Labs-12/02/22 NOV-05/27/23 Please review and advise. Alma Rea LPN documented in this encounter [facility] 12-28-2022 History of Present illness Narrative Manual [...] yet today. Also, she was seen at [facility] ER on 12/25/22 for epistaxis. BP while [...] she would be contacted after review by honey processor. Luiza Dobbins LPN documented in this encounter [facility] 12-25-2022 Miscellaneous Notes Protocol recommends ER. Patient [...] for high BP. Losartan is new- since 1-13. Yesterday BP 159/90 8. BLOOD THINNERS: No blood thinners. 9. OTHER SYMPTOMS: No lightheadedness or dizziness. No other symptoms. SHANKS is gone. 10. : No Protocols used: [id number] documented in this encounter [facility] 12-24-2022 History of Present illness Narrative POPULATION HEALTH NAVIGATION OUTREACH Action/[facility]I [facility] [employer] SENT MEDICARE WELLNESS BP CONTROLLED (<130/80) Never done COLORECTAL CANCER SCREENING due on 12/31/2020 MAMMOGRAM due on 01/28/2021 Patient Identified by Name and : NO Outreach Outcome/Action Unable to reach patient: Left message [employer] [employer] message sent Did you use a PCP [...] 2022 8:50 AM documented in this encounter [facility] documented as of this encounter (statuses as of 11/27/2022) [facility] History of Past illness Narrative* Problem Noted Date Resolved Date Knee injury 11/27/2022 11/27/2022 Fatigue 10/06/2022 11/27/2022 Right knee pain 08/17/2019 11/27/2022 Depressive disorder, not elsewhere classified 02/25/2018 documented as of this encounter (statuses as of 12/24/2022) [facility] History of Past illness Narrative* Problem Noted Date Resolved Date Knee injury 11/27/2022 11/27/2022 Fatigue 10/06/2022 11/27/2022 Right knee pain 08/17/2019 11/27/2022 Depressive disorder, not elsewhere classified 02/25/2018 documented as of this encounter (statuses as of 12/28/2022) [facility] History of Past illness Narrative* Problem Noted Date Resolved Date Knee injury 11/27/2022 11/27/2022 Fatigue 10/06/2022 11/27/2022 Right knee pain 08/17/2019 11/27/2022 Depressive disorder, not elsewhere classified 02/25/2018 documented as of this encounter (statuses as of 01/14/2023) [facility] History of Past illness Narrative* Problem Noted Date Resolved Date Knee injury 11/27/2022 11/27/2022 Fatigue 10/06/2022 11/27/2022 Right knee pain 08/17/2019 11/27/2022 Depressive disorder, not elsewhere classified 02/25/2018 documented as of this encounter (statuses as of 01/26/2023) [facility] History of Past illness Narrative* Problem Noted Date Resolved Date Knee injury 11/27/2022 11/27/2022 Fatigue 10/06/2022 11/27/2022 Right knee pain 08/17/2019 11/27/2022 Depressive disorder, not elsewhere classified 02/25/2018 documented as of this encounter (statuses as of 02/22/2023) [facility] History of Past illness Narrative* Problem Noted Date Resolved Date Knee injury 11/27/2022 11/27/2022 Fatigue 10/06/2022 11/27/2022 Right knee pain 08/17/2019 11/27/2022 Depressive disorder, not elsewhere classified 02/25/2018 documented as of this encounter (statuses as of 02/25/2023) [facility] History of Past illness Narrative* Problem Noted Date Resolved Date Knee injury 11/27/2022 11/27/2022 Fatigue 10/06/2022 11/27/2022 Right knee pain 08/17/2019 11/27/2022 Depressive disorder, not elsewhere classified 02/25/2018 documented as of this encounter (statuses as of 02/27/2023) [facility] History of Past illness Narrative* Problem Noted Date Resolved Date Knee injury 11/27/2022 11/27/2022 Fatigue 10/06/2022 11/27/2022 Right knee pain 08/17/2019 11/27/2022 Depressive disorder, not elsewhere classified 02/25/2018 documented as of this encounter (statuses as of 03/01/2023) [facility] of Past illness Narrative* Problem Noted Date Resolved Date Knee injury 11/27/2022 11/27/2022 Fatigue 10/06/2022 11/27/2022 Right knee pain 08/17/2019 11/27/2022 Depressive disorder, not elsewhere classified 02/25/2018 documented as of this encounter (statuses as of 03/11/2023) [facility] History of Past illness Narrative* Problem Noted Date Resolved Date Knee injury 11/27/2022 11/27/2022 Fatigue 10/06/2022 11/27/2022 Right knee pain 08/17/2019 11/27/2022 Depressive disorder, not elsewhere classified 02/25/2018 documented as of this encounter (statuses as of 03/11/2023) [facility] History of Past illness Narrative* Problem Noted Date Diagnosed Date Resolved Date Knee injury 11/27/2022 11/27/2022 Fatigue 10/06/2022 11/27/2022 Right knee pain 08/17/2019 11/27/2022 Depressive disorder, not elsewhere classified 01/21/20 07 02/25/2018 documented as of this encounter (statuses as of 05/27/2023) [facility] of Past illness Narrative* Problem Noted Date Diagnosed Date Resolved Date Knee injury 11/27/2022 11/27/2022 Fatigue 10/06/2022 11/27/2022 Right knee pain 08/17/2019 11/27/2022 Depressive disorder, not elsewhere classified 01/21/20 07 02/25/2018 documented as of this encounter (statuses as of 06/10/2023) [facility] of Past illness Narrative* Problem Noted Date Diagnosed Date Resolved Date Knee injury 11/27/2022 11/27/2022 Fatigue 10/06/2022 11/27/2022 Right knee pain 08/17/2019 11/27/2022 Depressive disorder, not elsewhere classified 01/21/20 07 02/25/2018 documented as of this encounter (statuses as of 06/30/2023) [facility] of Past illness Narrative* Problem Noted Date Diagnosed Date Resolved Date Knee injury 11/27/2022 11/27/2022 Fatigue 10/06/2022 11/27/2022 Right knee pain 08/17/2019 11/27/2022 Depressive disorder, not elsewhere classified 01/21/20 07 02/25/2018 documented as of this encounter (statuses as of 08/31/2023) [facility] History of Past illness Narrative* Problem Noted Date Diagnosed Date Resolved Date Knee injury 11/27/2022 11/27/2022 Fatigue 10/06/2022 11/27/2022 Right knee pain 08/17/2019 11/27/2022 Depressive disorder, not elsewhere classified 01/21/20 07 02/25/2018 documented as of this encounter (statuses as of 09/19/2023) [facility] History of Past illness Narrative* Problem Noted Date Diagnosed Date Resolved Date Knee injury 11/27/2022 11/27/2022 Fatigue 10/06/2022 11/27/2022 Right knee pain 08/17/2019 11/27/2022 Depressive disorder, not elsewhere classified 01/21/20 07 02/25/2018 documented as of this encounter (statuses as of 09/19/2023) [facility] History of Past illness Narrative* Problem Noted Date Diagnosed Date Resolved Date Knee injury 11/27/2022 11/27/2022 Fatigue 10/06/2022 11/27/2022 Right knee pain 08/17/2019 11/27/2022 Depressive disorder, not elsewhere classified 01/21/20 07 02/25/2018 documented as of this encounter (statuses as of 11/07/2023) [facility] History of Past illness Narrative* Problem Noted Date Diagnosed Date Resolved Date Knee injury 11/27/2022 11/27/2022 Fatigue 10/06/2022 11/27/2022 Right knee pain 08/17/2019 11/27/2022 Depressive disorder, not elsewhere classified 01/21/20 07 02/25/2018 documented as of this encounter (statuses as of 12/18/2023) [facility] History of Past illness Narrative* Problem Noted Date Diagnosed Date Resolved Date Knee injury 11/27/2022 11/27/2022 Fatigue 10/06/2022 11/27/2022 Right knee pain 08/17/2019 11/27/2022 Depressive disorder, not elsewhere classified 01/21/20 07 02/25/2018 documented as of this encounter (statuses as of 12/30/2023) [facility] History of Past illness Narrative* Problem Noted Date Diagnosed Date Resolved Date Knee injury 11/27/2022 11/27/2022 Fatigue 10/06/2022 11/27/2022 Right knee pain 08/17/2019 11/27/2022 Depressive disorder, not elsewhere classified 01/21/20 07 02/25/2018 documented as of this encounter (statuses as of 01/04/2024) [facility] History of Present illness Narrative* Avtar Chowdary [...] or shortness of breath. No edema. Seeing [facility] and noted pain in neck and [...] W/COLLJ SPEC WHEN PFRMD 12/31/10 EMG 12/04/2015 [facility] - see scanned document ENDOMETRIAL ABLTJ THERMAL [...] No history of dysuria, frequency or incontinence INVERTER AND CLIPPER: Negative for abnormal vaginal bleeding, abnormal vaginal [...] SEASONAL QUADRIVALENT HIGH DOSE AGE 65+ - [id number] COVID-19 BIVALENT BOOSTER VACCINE, AGE 12+ YR [...] six months and prn. [facility] Miscellaneous Notes* Telephone Encounter - Isabel Morley Ma - 10/20/2022 9:23 AM EST Pt notified via Livestreamt that she needs to establish care with new provider. Advised no further refills till she has established care. Isabel oMrley Ma * Telephone Encounter - Marcos Kasper [...] 10/19/2022 4:09 PM EST Routed to provider honey processor. Kaden Polanco LPN * Telephone Encounter - Kaden Polanco LPN - 10/19/2022 4:05 PM EST Pt asking for a refill of Lexapro 20mg. Pt has not been seen since 01/28/21. Last rx was written 06/17/21 #90 with 3 refills. MC message to pt advising of need to schedule an appt to Establish Care with a new provider. Kaden Polanco LPN [facility] Miscellaneous Notes* Telephone Encounter - Emeka Desai - 06/03/2022 9:56 AM EDT Pt is scheduled for their MSK US on 06/25 at [facility]. * Telephone Encounter - Shashi Young - [...] REGION. OUTSIDE ORDER SCANNED INTO CHART/BUILT IN Al[employer]on Preferred Provider: N/A Comment: PATIENT CURRENTLY SCHEDULED FOR 06/02/22: 11:15A AT [facility] Location: MAIN CAMP[facility] Slot held: N/A [facility] Miscellaneous Notes* Telephone Encounter - Admin Prachi Inman - 06/01/2022 10:25 AM EDT Patient was scheduled for their MSK US exam on Wednesday06/02/22: 11:15A at [facility]. * Telephone Encounter - Emeka Desai - 06/01/2022 10:09 AM EDT Called patient on 06/01 at 10:09 to schedule their MSK US exam. No answer, left VM, 1st attempt. * Telephone Encounter - Shashi Hector - 06/01/2022 8:15 AM EDT Visit Type: US MSK1 Visit Length: 45 OR 60 MINUTES Order Name/Protocol: PLEASE HAVE PT SIGN AUTH OF RELEASE FORM. US EXTREMITY MASS/FLUID COLLECTION RT; EVAL RT POPLITEAL SPACE AT SCIATIC NERVE FOR POSSIBLE LESION. 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 OUTSIDE ORDER SCANNED INTO CHART/BUILT IN MessageGateO Preferred Provider: N/A Comment: N/A Location: [facility] [place] [facility] Slot held: N/A documented [facility] Miscellaneous Notes* Telephone Encounter - Admin Assist Deysi Inman - 05/05/2022 5:00 PM EDT Patient has been scheduled for their MSK US exam on Wednesday06/02/22: 11:15A at [facility]. * Telephone Encounter - Emeka Desai - [...] REGION. OUTSIDE ORDER SCANNED INTO CHART/BUILT IN [employer] Preferred Provider: N/A Comment: N/A Location: [facility] [place] [facility] Slot held: N/A [facility] History of Past illness Narrative* Problem Noted Date Resolved Date Depressive disorder, not elsewhere classified 02/25/2018 documented as of this encounter (statuses as of 05/05/2022) [address]08-[address] History of Past illness Narrative* Problem Noted Date Resolved Date Depressive disorder, not elsewhere classified 02/25/2018 documented as of this encounter (statuses as of 06/01/2022) [place] [address]-08-2007 History of Past illness Narrative* Problem Noted Date Resolved Date Depressive disorder, not elsewhere classified 02/25/2018 documented as of this encounter (statuses as of 06/03/2022) [address] History of Past illness Narrative* Problem Noted Date Resolved Date Depressive disorder, not elsewhere classified 02/25/2018 documented as of this encounter (statuses as of 10/20/2022) [facility] Situational anxiety Other anxiety states [facility] Diagnosis Essential hypertension, benign- Primary Encounter [...] of acute poliomyelitis [facility] Essential hypertension, benign- Primary [facility] Diagnosis Situational anxiety Other anxiety states [facility] Diagnosis Primary hypertension- Primary Unspecified essential hypertension [facility] Diagnosis Essential hypertension, benign- Primary Enlargement of sternoclavicular joint, right Chronic right shoulder pain Pain in joint, shoulder region Screening for colon cancer Special screening for malignant neoplasms, colon documented in this encounter [facility] note* Diagnosis Primary hypertension- Primary Unspecified essential hypertension Situational anxiety Other anxiety states Essential hypertension, benign documented in this encounter [facility] note* Diagnosis Abnormal findings on diagnostic imaging of body structures- Primary Clavicle enlargement Other disorders of bone and cartilage Clavicle pain Disorder of bone and cartilage, unspecified Fatigue, unspecified type Primary hypertension Unspecified essential hypertension Situational anxiety Other anxiety states documented in this encounter [facility] note* Diagnosis Abnormal findings on diagnostic imaging of body structures Clavicle enlargement Other disorders of bone and cartilage Clavicle pain Disorder of bone and cartilage, unspecified documented in this encounter [facility] note* Diagnosis Encounter for screening mammogram for breast cancer documented in this encounter [facility] note* Diagnosis Congestive heart failure, unspecified HF chronicity, unspecified heart failure type (HCC)- Primary documented in this encounter [facility] note* Diagnosis Hypothyroidism, acquired- Primary Unspecified hypothyroidism documented in this encounter [facility] for referral (narrative)* Diagnostic Procedure Only (Routine) - Closed Specialty Diagnoses / Procedures Referred By Berenice erickson Referred To Contact [facility] Diagnoses Encounter for screening mammogram for breast cancer Procedures MARIELA SCREENING SCREENING MAMMOGRAPHY BI 2-VIEW BREAST INC Avtar Garces MD [address] [place] [address] [facility] [address] [place] [id number] Referral ID Status Reason Start Date Expiration Date V isits Requested Visits Authorized [id number] Closed Auto-Generate d Referral 11/27/2022 12/27/2023 1 1 [facility] for visit Narrative* Diagnostic Procedure Only (Routine) - Closed Specialty Diagnoses / Procedures Referred By Berenice erickson Referred To Contact [facility] Diagnoses Encounter for screening mammogram for breast cancer Procedures MARIELA SCREENING SCREENING MAMMOGRAPHY BI 2-VIEW BREAST INC Avtar Garces MD [address] [place] [address] [facility] [address] [place] [address] Referral ID Status Reason Start Date Expiration Date V isits Requested Visits Authorized [id number] Closed Auto-Generate d Referral 11/27/2022 12/27/2023 1 1 [facility] Summary Purpose Family History No Family History Records FoundNo Family History Records FoundNo Family History Records FoundNo Family History Records FoundNo Family History Records Found Advance Directives No Advanced Directives Records FoundDocuments on File Type Date Recorded 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 RECORD# NUMBER DATE DATE TYPE MARIANELA BASHIR [id number] F [id number] 10/03/18 1 K [id number] ROOM: [facility] DATE OF : 1950 DICTATING PHYSICIAN: Tamica [...] cancer Procedures CONSULT TO GENERAL SURGERY OFFICE/OUTPATIENT [facility] 60-74 MINUTES Avtar Chowdary MD [address] [place] [address] Referral ID Status Reason Start Date Expiration Date Visits Requested Visits Authorized [id number] Authorized PCP Requested Referral 11/27/2022 11/27/2023 1 1 Specialty Diagnoses / Procedures Referred By Contac t Referred To Contact [facility] Diagnoses Encounter for screening mammogram for breast cancer Procedures MARIELA SCREENING SCREENING MAMMOGRAPHY BI 2-VIEW BREAST INC CAD Avtar Chowdary MD [address] [place] [address] [facility] [address] [place] [address] Referral ID Status Reason Start Date Expiration Date Visits Requested Visits Authorized [id number] Authorized Auto-Generat ed Referral 11/27/2022 12/27/2023 1 1 Specialty Diagnoses / Procedures Referred By Contac t Referred To Contact [facility] Diagnoses Chronic right shoulder pain Procedures CONSULT TO PHYSICAL THERAPY PHYSICAL THERAPY EVALUATION HIGH COMPLEX 45 MINS Avtar Chowdary MD [address] [place] [address] [facility] [place] [address] [place] [address] Referral ID Status Reason Start Date Expiration Date Visits Requested Visits Authorized [id number] Authorized PCP Requested Referral Auto-Generate d Referral 02/22/2023 02/22/2024 99 99 Specialty Diagnoses / Procedures Referred By Contac t Referred To Contact XR IMAGING Diagnoses Chronic right shoulder pain Procedures XR SHOULDER GENERAL 3V OR MORE AP/TRUE AP/OTHER RIGHT RADEX SHOULDER COMPLETE MINIMUM 2 VIEWS Avtar Chowdary MD [address] [place] [address] Xr Imaging Referral ID Status Reason Start Date Expiration Date V isits Requested Visits Authorized [id number] Closed Auto-Generate d Referral 02/22/2023 03/23/2024 1 1 Specialty Diagnoses / Procedures Referred By Contac t Referred To Contact XR IMAGING Diagnoses Enlargement of sternoclavicular joint, right Procedures XR STERNOCLAVICULAR JOINTS 3V AP/BOTH OBLS RADEX A-C JOINTS BI W/WO WEIGHTED DISTRCJ Avtar Chowdary MD [address] [place] [address] Xr Imaging Referral ID Status Reason Start Date Expiration Date V isits Requested Visits Authorized [id number] Closed Auto-Generate d Referral 02/22/2023 03/23/2024 1 1 Specialty Diagnoses / Procedures Referred By Contac t Referred To Contact CT IMAGING Diagnoses Abnormal findings on diagnostic imaging of body structures Clavicle enlargement Clavicle pain Procedures CT CLAVICLE W IVCON RIGHT CT UPPER EXTREMITY W/CONTRAST MATERIAL Avtar Chowdary MD [address] [place] [address] Ct Imaging Referral ID Status Reason Start Date Expiration Date Visits Requested Visits Authorized [id number] Authorized Auto-Generat ed Referral 05/27/2023 06/25/2024 1 1 Specialty Diagnoses / Procedures Referred By Contac t Referred To Contact CT IMAGING Diagnoses Abnormal findings on diagnostic imaging of body structures Clavicle enlargement Clavicle pain Procedures CT CLAVICLE W IVCON RIGHT CT UPPER EXTREMITY W/CONTRAST MATERIAL Avtar Chowdary MD [address] [place] [address] [place] [address] Referral ID Status Reason Start Date Expiration Date V isits Requested Visits Authorized [id number] Closed Auto-Generate d Referral 05/27/2023 06/25/2024 1 1 Additional Source Comments INFORMATION SOURCE (unrecogn ized section and content) DATE CREATED AUTHOR AUTHOR'S ORGANIZ ATION 10/26/2018 [facility] DATE CREATED AUTHOR AUTHOR'S ORGANIZ ATION 11/13/2023 [facility] DATE CREATED AUTHOR AUTHOR'S ORGANIZ ATION 11/14/2023 [facility] DATE CREATED AUTHOR AUTHOR'S ORGANIZ ATION 01/05/2024 [facility] Source Comments (unrecognize d section and content) In the event this informatio n is protected by the Federal Confidentiality of Alcohol and Drug Abuse Patient Records regulations: The Federal rules restrict any use of the information to criminally investigate or prosecute any alcohol or drug abuse patient.[facility] CenterIn the event this information is protected by the Federal Confidentiality of Alcohol and Drug Abuse Patient Records regulations: The Federal rules restrict any use of the information to criminally investigate or prosecute any alcohol or drug abuse patient.[facility] CenterIn the event this information is protected by the Federal Confidentiality of Alcohol and Drug Abuse Patient Records regulations: The Federal rules restrict any use of the information to criminally investigate or prosecute any alcohol or drug abuse patient.[facility] CenterIn the event this information is protected by the Federal Confidentiality of Alcohol and Drug Abuse Patient Records regulations: The Federal rules restrict any use of the information to criminally investigate or prosecute any alcohol or drug abuse patient.[facility] CenterIn the event this information is protected by the Federal Confidentiality of Alcohol and Drug Abuse Patient Records regulations: The Federal rules restrict any use of the information to criminally investigate or prosecute any alcohol or drug abuse patient.[facility] CenterIn the event this information is protected by the Federal Confidentiality of Alcohol and Drug Abuse Patient Records regulations: The Federal rules restrict any use of the information to criminally investigate or prosecute any alcohol or drug abuse patient.[facility] CenterIn the event this information is protected by the Federal Confidentiality of Alcohol and Drug Abuse Patient Records regulations: The Federal rules restrict any use of the information to criminally investigate or prosecute any alcohol or drug abuse patient.[facility] CenterIn the event this information is protected by the Federal Confidentiality of Alcohol and Drug Abuse Patient Records regulations: The Federal rules restrict any use of the information to criminally investigate or prosecute any alcohol or drug abuse patient.[facility] CenterIn the event this information is protected by the Federal Confidentiality of Alcohol and Drug Abuse Patient Records regulations: The Federal rules restrict any use of the information to criminally investigate or prosecute any alcohol or drug abuse patient.[facility] CenterIn the event this information is protected by the Federal Confidentiality of Alcohol and Drug Abuse Patient Records regulations: The Federal rules restrict any use of the information to criminally investigate or prosecute any alcohol or drug abuse patient.[facility] CenterIn the event this information is protected by the Federal Confidentiality of Alcohol and Drug Abuse Patient Records regulations: The Federal rules restrict any use of the information to criminally investigate or prosecute any alcohol or drug abuse patient.[facility] CenterIn the event this information is protected by the Federal Confidentiality of Alcohol and Drug Abuse Patient Records regulations: The Federal rules restrict any use of the information to criminally investigate or prosecute any alcohol or drug abuse patient.[facility] CenterIn the event this information is protected by the Federal Confidentiality of Alcohol and Drug Abuse Patient Records regulations: The Federal rules restrict any use of the information to criminally investigate or prosecute any alcohol or drug abuse patient.[facility] CenterIn the event this information is protected by the Federal Confidentiality of Alcohol and Drug Abuse Patient Records regulations: The Federal rules restrict any use of the information to criminally investigate or prosecute any alcohol or drug abuse patient.[facility] CenterIn the event this information is protected by the Federal Confidentiality of Alcohol and Drug Abuse Patient Records regulations: The Federal rules restrict any use of the information to criminally investigate or prosecute any alcohol or drug abuse patient.[facility] CenterIn the event this information is protected by the Federal Confidentiality of Alcohol and Drug Abuse Patient Records regulations: The Federal rules restrict any use of the information to criminally investigate or prosecute any alcohol or drug abuse patient.[facility] CenterIn the event this information is protected by the Federal Confidentiality of Alcohol and Drug Abuse Patient Records regulations: The Federal rules restrict any use of the information to criminally investigate or prosecute any alcohol or drug abuse patient.[facility] CenterIn the event this information is protected by the Federal Confidentiality of Alcohol and Drug Abuse Patient Records regulations: The Federal rules restrict any use of the information to criminally investigate or prosecute any alcohol or drug abuse patient.[facility] CenterIn the event this information is protected by the Federal Confidentiality of Alcohol and Drug Abuse Patient Records regulations: The Federal rules restrict any use of the information to criminally investigate or prosecute any alcohol or drug abuse patient.[facility] CenterIn the event this information is protected by the Federal Confidentiality of Alcohol and Drug Abuse Patient Records regulations: The Federal rules restrict any use of the information to criminally investigate or prosecute any alcohol or drug abuse patient.[facility] CenterIn the event this information is protected by the Federal Confidentiality of Alcohol and Drug Abuse Patient Records regulations: The Federal rules restrict any use of the information to criminally investigate or prosecute any alcohol or drug abuse patient.[facility] CenterIn the event this information is protected by the Federal Confidentiality of Alcohol and Drug Abuse Patient Records regulations: The Federal rules restrict any use of the information to criminally investigate or prosecute any alcohol or drug abuse patient.[facility] CenterIn the event this information is protected by the Federal Confidentiality of Alcohol and Drug Abuse Patient Records regulations: The Federal rules restrict any use of the information to criminally investigate or prosecute any alcohol or drug abuse patient.[facility] CenterIn the event this information is protected by the Federal Confidentiality of Alcohol and Drug Abuse Patient Records regulations: The Federal rules restrict any use of the information to criminally investigate or prosecute any alcohol or drug abuse patient.[facility] CenterIn the event this information is protected by the Federal Confidentiality of Alcohol and Drug Abuse Patient Records regulations: The Federal rules restrict any use of the information to criminally investigate or prosecute any alcohol or drug abuse patient.[facility] Reason for Visit (unrecogniz ed section and content) Reason Comments RESCHEDULE Reason Comments APPT RESCHEDULE REQUEST Reason Onset Date Comments Refill Request 10/17/2022 Reason Comments Medicare Wellness Exam Reason Onset Date Comments Population Health Navigation Outreach 12/24/2022 [facility] Reason Comments Blood Pressure Check Reason Onset Date Comments Refill Request 01/13/2023 Reason Comments Lump Reason Comments Results Reason Comments Recheck 1 month BP check Reason Comments Nose Bleed Reason Comments 6 Month Exam Reason Onset Date Comments Population Health Navigation Outreach 08/30/2023 [facility] Reason Comments Radiology CT Specialty Diagnoses / Procedures Referred By Berenice t Referred To Contact CT IMAGING Diagnoses Abnormal findings on diagnostic imaging of body structures Clavicle enlargement Clavicle pain Procedures CT CLAVIC[place] W IVCON RIGHT CT UPPER EXTREMITY W/CONTRAST MATERIAL Avtar Chowdary MD [address] [place] [address] Ct [facility] [place] [id number] Referral ID Status Reason Start Date Expiration Date V isits Requested Visits Authorized [id number] Closed Auto-Generate d Referral 05/27/2023 06/25/2024 1 1 Reason Comments Results Heart failure Reason Comments Patient Update Care Teams (unrecognized sec tion and content) Clothing Consultant Relationship Specialty Start Date End Date Luzmaria Huizar III, MD PCP - General 02/12/10 Clothing Consultant Relationship Specialty Start Date End Date Luzmaria Huizar III, MD PCP - General 02/12/10 Clothing Consultant Relationship Specialty Start Date End Date Luzmaria Huizar III, MD PCP - General 02/12/10 10/19/22 Clothing Consultant Relationship Specialty Start Date End Date Avtar Chowdary MD [address] [place] [address] PCP - General Internal Medicine 11/27/22 Clothing Consultant Relationship Specialty Start Date End Date Avtar Chowdary MD [address] [place] [address] PCP - General Internal Medicine 11/27/22 Clothing Consultant Relationship Specialty Start Date End Date Avtar Chowdary MD [address] [place] [address] PCP - General Internal Medicine 11/27/22 Clothing Consultant Relationship Specialty Start Date End Date Avtar Chowdary MD [address] [place] [address] PCP - General Internal Medicine 11/27/22 Clothing Consultant Relationship Specialty Start Date End Date Avtar Chowdary MD [address] [place] [address] PCP - General Internal Medicine 11/27/22 Clothing Consultant Relationship Specialty Start Date End Date Avtar Chowdary MD [address] [place] [address] PCP - General Internal Medicine 11/27/22 Clothing Consultant Relationship Specialty Start Date End Date Avtar Chowdary MD [address] [place] [address] PCP - General Internal Medicine 11/27/22 Clothing Consultant Relationship Specialty Start Date End Date Avtar Chowdary MD [address] [place] [address] PCP - General Internal Medicine 11/27/22 Clothing Consultant Relationship Specialty Start Date End Date Avtar Chowdary MD [address] [place] [address] PCP - General Internal Medicine 11/27/22 Clothing Consultant Relationship Specialty Start Date End Date Avtar Chowdary MD [address] [place] [address] PCP - General Internal Medicine 11/27/22 Clothing Consultant Relationship Specialty Start Date End Date Avtar Chowdary MD [address] [place], [place] [address] PCP - General Internal Medicine 11/27/22 Clothing Consultant Relationship Specialty Start Date End Date Avtar Chowdary MD [address] [place], [place] [address] PCP - General Internal Medicine 11/27/22 Clothing Consultant Relationship Specialty Start Date End Date Avtar Chowdary MD [address] [place] [address] PCP - General Internal Medicine 11/27/22 Clothing Consultant Relationship Specialty Start Date End Date Avtar Chowdary MD [address] [place] [address] PCP - General Internal Medicine 11/27/22 Clothing Consultant Relationship Specialty Start Date End Date Avtar Chowdary MD [address] [place] [address] PCP - General Internal Medicine 11/27/22 Clothing Consultant Relationship Specialty Start Date End Date Avtar Chowdary MD [address] [place] [address] PCP - General Internal Medicine 11/27/22 Clothing Consultant Relationship Specialty Start Date End Date Avtar Chowdary MD [address] [place], [place] [id number] PCP - General Internal Medicine 11/27/22 Clothing Consultant Relationship Specialty Start Date End Date Avtar Chowdary MD [address] [place], [place] [id number] PCP - General Internal Medicine 11/27/22 Clothing Consultant Relationship Specialty Start Date End Date Avtar Chowdary MD [address] [facility] [address] PCP - General Internal Medicine 11/27/22 Clothing Consultant Relationship Specialty Start Date End Date Avtar Chowdary MD [address] [facility] [address] PCP - General Internal Medicine 11/27/22 FOR [...] BE BASED ON THE PRIMARY CLINICAL RECORDS. [facility] provides no warranty or guarantee of the accuracy or completeness of information in this document.
--- NOTE | 2024-01-20 12:38 | STRESSREP ---
Stress Test Report Pharmacologic myocardial perfusion stress test. 73-year-old lady with a history of CHF and A-fib Resting EKG demonstrates atrial fibrillation with a rate of 66 bpm. Resting blood pressure is 120/70 mmHg. 0.4 mg of regadenoson was infused per usual protocol followed by rapid intravenous saline flush injection. Continuous EKG monitoring was performed. The maximum heart rate was 79 bpm which was 53% of max impacted heart rate the maximum workload was 1 metabolic equivalent. At rest there were no ST or T wave changes noted to suggest ischemia and at peak infusion nonspecific ST changes were noted which did not meet the criteria for ischemia. No clinical angina is noted. The final blood pressure was 120/70 mmHg. Myocardial perfusion protocol. 13.8 mCi of technetium 99m sestamibi was injected at rest. 0.4 mg of regadenoson was infused per usual protocol. At peak infusion 41.7 mCi of technetium 99m sestamibi was injected stress images were obtained stress and rest images were reconstructed and compared in the short axis vertical long and horizontal long axis. Gated images were also obtained. Perfusion SPECT analysis: Review of the stress images demonstrate normal uptake of tracer noted in all areas of the myocardium. The resting images similar demonstrated normal uptake of tracer noted in all areas of the myocardium. No areas of reversibility are noted to suggest ischemia and no previous infarct is noted. Gated SPECT analysis: The gated ejection fraction is 89%. Conclusion: Normal pharmacologic myocardial perfusion stress test. Preserved ejection fraction.
== END | disposition home or self-care (01) ==
LOC: CVS 06:24
PROVIDERS: PCP Family Medicine; Referring Provider Internal Medicine Cardiovascular Disease; Visit Provider Internal Medicine Cardiovascular Disease
DX: R94.31 Abnormal electrocardiogram [ECG] [EKG] (principal); I11.0 Hypertensive heart disease with heart failure; I50.9 Heart failure, unspecified; I48.91 Unspecified atrial fibrillation
CPT/HCPCS: 78452; 93017; 93225; 93226; A9500; A4216; J2785

== ENCOUNTER → 2024-02-09 | Outpatient (CLI) | payer MEDICARE, OTHER, SELFPAY ==
[2024-02-09 11:54] LABS: BNP,B-Type NATRIURETIC PEPTIDE 243.2 pg/mL (0-100)
== END | disposition home or self-care (01) ==
LOC: LAB 09:39
PROVIDERS: PCP Family Medicine; Referring Provider Internal Medicine Cardiovascular Disease; Visit Provider Internal Medicine Cardiovascular Disease
DX: I50.9 Heart failure, unspecified (principal); R06.09 Other forms of dyspnea
CPT/HCPCS: 36415; 83880

== ENCOUNTER → 2024-02-11 | Outpatient (CLI) | payer MEDICARE, OTHER, SELFPAY | END | disposition home or self-care (01) | LOC: PSN 10:25 | PROVIDERS: PCP Family Medicine; Referring Provider Internal Medicine Cardiovascular Disease; Visit Provider Internal Medicine Cardiovascular Disease | DX: R06.09 Other forms of dyspnea (principal); I50.30 Unspecified diastolic (congestive) heart failure; I48.91 Unspecified atrial fibrillation; R53.83 Other fatigue | CPT/HCPCS: 94060; 94726; 94729 ==

== ENCOUNTER → 2024-02-18 | Outpatient (CLI) | payer MEDICARE, OTHER, SELFPAY ==
[2024-02-18 09:47] LABS: Anion Gap 5 (5-15); BUN 18 mg/dL (7-18); Calcium,Total 9.4 mg/dL (8.5-10.1); Chloride 105 mmol/L (98-107); Cholesterol 153 mg/dL (200); Creatinine, Serum 1.06 mg/dL (0.55-1.02); EST Glomerular Filtration Rate 54 mL/min (>60); Est Glom Filt Rate - Afr Amer 65 mL/min (>60); Glucose 117 mg/dL (74-106); High Density Lipoprotein 48 mg/dL; Potassium 3.5 mmol/L (3.5-5.1); Sodium Level 140 mmol/L (136-145); Triglycerides 72 mg/dL; Very Low Density Lipoprotein 14 mg/dL (5-40)
== END | disposition home or self-care (01) ==
PROVIDERS: PCP Family Medicine; Referring Provider Internal Medicine Cardiovascular Disease; Visit Provider Internal Medicine Cardiovascular Disease
DX: R06.09 Other forms of dyspnea (principal); I11.0 Hypertensive heart disease with heart failure; I50.30 Unspecified diastolic (congestive) heart failure; E78.5 Hyperlipidemia, unspecified; R53.83 Other fatigue
CPT/HCPCS: 36415; 80048; 80061

== ENCOUNTER → 2024-02-29 | Outpatient (CLI) | payer MEDICARE, OTHER, SELFPAY ==
[2024-02-29 10:57] LABS: T4 Free Direct 0.91 ng/dL (0.76-1.46); Thyroid Stim Hormone (TSH) 4.71 uIU/mL (0.358-3.74)
[2024-03-01 04:07] LABS: Thyroid Peroxidase AB < 9 IU/mL (0-34)
== END | disposition home or self-care (01) ==
LOC: LAB 09:18
PROVIDERS: PCP Family Medicine; Visit Provider Internal Medicine Endocrinology, Diabetes & Metabolism
DX: I10 Essential (primary) hypertension (principal); R94.6 Abnormal results of thyroid function studies
CPT/HCPCS: 36415; 84439; 84443; 86376

== ENCOUNTER → 2024-04-19 | Outpatient (CLI) | payer MEDICARE, OTHER, SELFPAY ==
[2024-04-19 12:20] LABS: T4 Free Direct 1.28 ng/dL (0.76-1.46); Thyroid Stim Hormone (TSH) 0.67 uIU/mL (0.358-3.74)
== END | disposition home or self-care (01) ==
LOC: LAB 10:45
PROVIDERS: PCP Family Medicine; Visit Provider Internal Medicine Endocrinology, Diabetes & Metabolism
DX: R79.89 Other specified abnormal findings of blood chemistry (principal)
CPT/HCPCS: 36415; 84439; 84443

== ENCOUNTER → 2024-07-07 | Outpatient (CLI) | payer MEDICARE, OTHER, SELFPAY ==
--- NOTE | 2024-07-07 11:15 | RAD_ITS ---
STUDY: BONE LENGTH SCANOGRAM . REASON FOR EXAM: Female, 74 years old. Unequal limb length (acquired), right tibia TECHNIQUE: Frontal view of the lower extremities was obtained. COMPARISON: None. FINDINGS: Status post left total knee replacement. The left lower extremity measures 68.62 cm. The right lower extremity measures 67.72 RAD/Bone Length IMPRESSION: Leg length discrepancy as described. Electronically Signed: Ap Gaitan MD at 12:52 EDT ,
== END | disposition home or self-care (01) ==
LOC: RAD 11:02
PROVIDERS: PCP Family Medicine; Referring Provider Podiatrist; Visit Provider Podiatrist
DX: M21.761 Unequal limb length (acquired), right tibia (principal)
CPT/HCPCS: 77073

== ENCOUNTER → 2024-11-21 | Outpatient (CLI) | payer MEDICARE, SELFPAY ==
[2024-11-21 14:36] LABS: Hematocrit 42.2 % (37-47); Hemoglobin 13.7 g/dL (12.0-15.0); Mean Corp Hgb Conc 32.5 g/dL (32-36); Mean Corpuscular Hgb 30.3 pg (27.0-32.0); Mean Corpuscular Volume 93.4 fL (81-99); Mean Platelet Vol. 9.9 fl (6.2-12.0); Platelet Count 265 K/mm3 (150-450); RBC Distribution Width CV 14.4 % (11.6-14.6); Red Blood Count 4.52 M/mm3 (4.2-5.4); White Blood Count 5.4 K/mm3 (4.4-11.0)
[2024-11-21 15:08] LABS: ALB/GLOB Ratio 0.9 RATIO (0.9-2.4); AST(SGOT) 18 U/L (15-37); Alanine Aminotransfer ALT/SGPT 18 U/L (13-56); Albumin, Serum 3.9 g/dL (3.2-5.0); Alkaline Phosphatase 86 U/L (45-117); Anion Gap 6 (5-15); BUN 26 mg/dL (7-18); Calcium,Total 9.4 mg/dL (8.5-10.1); Chloride 102 mmol/L (98-107); Creatinine, Serum 1.24 mg/dL (0.55-1.02); EST Glomerular Filtration Rate 45 mL/min (>60); Est Glom Filt Rate - Afr Amer 55 mL/min (>60); Globulin 4.2 g/dL (2.2-4.2); Glucose 95 mg/dL (74-106); Potassium 4.1 mmol/L (3.5-5.1); Protein, Total 8.1 g/dL (6.4-8.2); Sodium Level 138 mmol/L (136-145)
== END | disposition home or self-care (01) ==
LOC: LAB 14:05
PROVIDERS: PCP Family Medicine; Referring Provider Internal Medicine Cardiovascular Disease; Visit Provider Internal Medicine Cardiovascular Disease
DX: R06.09 Other forms of dyspnea (principal); I11.0 Hypertensive heart disease with heart failure; I50.9 Heart failure, unspecified; R53.83 Other fatigue
CPT/HCPCS: 36415; 80053; 85027

== ENCOUNTER → 2024-12-15 | Outpatient (CLI) | payer MEDICARE, SELFPAY ==
[2024-12-15 10:43] LABS: Anion Gap 6 (5-15); BUN 32 mg/dL (7-18); Calcium,Total 9.6 mg/dL (8.5-10.1); Chloride 100 mmol/L (98-107); Creatinine, Serum 1.23 mg/dL (0.55-1.02); EST Glomerular Filtration Rate 45 mL/min (>60); Est Glom Filt Rate - Afr Amer 55 mL/min (>60); Glucose 107 mg/dL (74-106); Potassium 3.9 mmol/L (3.5-5.1); Sodium Level 135 mmol/L (136-145)
== END | disposition home or self-care (01) ==
LOC: LAB 08:32
PROVIDERS: PCP Family Medicine; Referring Provider Nurse Practitioner Family; Visit Provider Nurse Practitioner Family
DX: I50.32 Chronic diastolic (congestive) heart failure (principal)
CPT/HCPCS: 36415; 80048

== ENCOUNTER 2025-01-31 10:54 | Emergency (ER) | payer MEDICARE, SELFPAY ==
[2025-01-31] VITALS (7 sets, daily range): BP systolic 129–175; BP diastolic 78–104; PULSE 47–66; RESP 17–25; TEMP 36.6–37.1; O2SAT 92–97; BMI 44.1
--- NOTE | 2025-01-31 11:42 | RAD_ITS ---
PROCEDURE: CHEST PA AND LATERAL 01/31/2025 REASON FOR EXAM: CHEST PAIN Atrial fibrillation. TECHNIQUE: Frontal and lateral views of the chest. COMPARISON: Comparison is made with prior study dated January 02, 2024. FINDINGS: EKG electrodes are seen. Heart size is mildly enlarged. The mediastinal contour is unremarkable. Pulmonary vasculature is congested. Degenerative changes are identified within the thoracic spine. RAD/Chest PA and Lateral IMPRESSION: Mild cardiomegaly. Vascular congestion and mild CHF. [facility]
--- NOTE | 2025-01-31 11:42 | EKG12_ITS ---
Test Reason : PALPITATIONS Blood Pressure : */* mmHG Vent. Rate : 62 BPM Atrial Rate : * BPM P-R Int : * ms QRS Dur : 76 ms QT Int : 454 ms P-R-T Axes : * -4 40 degrees QTcB Int : 460 ms Atrial fibrillation Low voltage QRS Abnormal ECG When compared with ECG of 02-Jan-2024 20:33, Nonspecific T wave abnormality no longer evident in Lateral leads Confirmed by WASHINGTON WHITAKER, PATIENCE ([id number]), sports editor DARREL NORMAN ([id number]) on 02/05/2025 7:35:34 AM Referred By: Confirmed By: PATIENCE DELAROSA MD
--- NOTE | 2025-01-31 11:56 | ED.VIS.CHEST ---
HPI History of Present Illness Chief Complaint: Chest Pain Narrative Narrative: Chief complaint and HPI: Shortness of breath and palpitations. 74-year-old female with past medical history of paroxysmal atrial fibrillation on Eliquis, HFpEF, HTN, HLD presents for evaluation of shortness of breath and palpitations. Patient states this morning she woke up with palpitations and shortness of breath. She states her shortness of breath is worse with exertion and with lying flat. Triage note states the patient was having chest tightness however she denies any chest tightness or chest pain to me. She denies any fever, chills, nausea, vomiting, URI symptoms, cough. Denies any bilateral lower extremity swelling. Denies any recent travel or surgery. States she has not missed any doses of her Eliquis. Patient follows with Dr. Witt with our cardiology Review of systems: See HPI Medications: As listed on the chart Allergies: As listed on the chart PFSH: Per chart Vital signs: As listed on the chart. Reviewed. Physical exam: Gen: A&O x3, NAD Head: Normocephalic, atraumatic Eyes: No sclera icterus, conjunctiva clear ENT: Moist mucous membranes Neck: Trachea midline, No JVD CV: Regular rate, irregular irregular rhythm, no murmurs, no peripheral edema Resp: Lungs CTA BL, no w/r/c GI: Abd soft, non-distended, non-tender, no r/r/g Musc: Full ROM, no deformity Skin: Warm, dry Neuro: Alert, oriented, grossly intact, sensation intact Psych: Cooperative, appropriate mood and affect [facility] History Abnormal EKG Abnormal results of thyroid function studies Anemia Anxiety Atrial fibrillation Benign essential HTN Cataracts, bilateral CHF (congestive heart failure) Depression Diastolic dysfunction with chronic heart failure Diverticulosis of colon Dyspnea Dyspnea on exertion Elevated TSH Fatigue GERD (gastroesophageal reflux disease) Hair loss Hearing problem Heart failure with preserved left ventricular function (HFpEF) Herniated disc Hiatal hernia History of poliomyelitis Hyperlipidemia Hypertension Morbid obesity Neuropathy Neuropathy of right peroneal nerve Polio Polyneuropathy Post-poliomyelitis muscular atrophy Right foot drop Seasonal allergies Shoulder blade pain Home Medications ?Medication ?Instructions ?Recorded ?Last Taken ?Type apixaban 5 mg tablet 5 mg PO BID 12/20/23 Unknown History escitalopram oxalate 20 mg tablet 20 mg PO DAILY 12/20/23 Unknown History spironolactone 25 mg tablet 25 mg PO DAILY 12/20/23 Unknown History diltiazem HCl 120 mg capsule,24 120 mg PO DAILY #90 caps 02/09/24 Unknown Rx hr,extended release losartan 100 mg tablet 100 mg PO DAILY #90 tabs 05/10/24 Unknown Rx levothyroxine 88 mcg tablet 88 mcg PO DAILY #90 tabs 09/01/24 Unknown Rx furosemide 20 mg tablet 20 mg PO DAILY 3 days #3 tabs 01/31/25 Unknown Rx Allergy/AdvReac Type Severity Reaction Status Date / Time hydrochlorothiazide AdvReac Intermediate GI upset Verified 01/31/25 10:57 lisinopril AdvReac Intermediate cough Verified 01/31/25 10:57 potassium chloride AdvReac Intermediate Hives Verified 01/31/25 10:57 simvastatin AdvReac Intermediate Vomiting Verified 01/31/25 10:57 Family History Sister Alcoholism Mother Heart disease Father Heart disease Emphysema of lung Surgical History History of appendectomy History of back surgery (~2019) History of total knee replacement (~2017) Hx of tonsillectomy Hx of tubal ligation Social History Smoking Status: Never smoker second hand exposure: No alcohol intake: never substance use type: does not use caffeine: Yes Type: coffee Number of servings: 2 what type of physical activity do you participate in: none patricia/amish: Mu-Ism seatbelt use: always EXAM Physical Exam Const Vital Signs: 01/31/25 10:55 01/31/25 11:32 01/31/25 11:57 Temperature 97.9 F Temperature Source Oral Pulse Rate 66 Respiratory Rate 25 H Respiratory Effort Short of Breath Blood Pressure 175/104 H Blood Pressure Mean 127 Pulse Ox 97 94 Oxygen Delivery Method Room Air Room Air 01/31/25 11:57 01/31/25 12:00 01/31/25 13:02 Temperature Temperature Source Pulse Rate 60 57 L 47 L Respiratory Rate 17 19 H 18 Respiratory Effort Blood Pressure 129/79 H 175/98 H Blood Pressure Mean 95 123 Pulse Ox 94 95 97 Oxygen Delivery Method Room Air Room Air Room Air 01/31/25 14:00 01/31/25 14:52 Temperature 98.7 F Temperature Source Pulse Rate 61 55 L Respiratory Rate 18 18 Respiratory Effort Blood Pressure 172/78 H 165/78 H Blood Pressure Mean 109 107 Pulse Ox 94 94 Oxygen Delivery Method Room Air MDM MDM MDM Narrative Medical decision making narrative: 74-year-old female with past medical history of proximal atrial fibrillation on Eliquis, CHF, HTN, HLD presents for evaluation of shortness of breath and palpitations. Differential diagnosis includes but is not limited to atrial fibrillation, arrhythmia, electrolyte abnormality, ACS, CHF exacerbation, thyroid disease, PE. Aspirin ordered. Cardiac workup ordered. On chart review, patient has had a stress test on 01/20/2024. Her last echocardiogram was 10/2023. She had an EF of 67%. EKG and chest x-ray reviewed see below. CBC without leukocytosis or anemia. D-dimer elevated at 1.34. Although PE is less likely given patient is on Eliquis cannot rule out PE therefore CTA chest ordered. BMP relatively unremarkable. Magnesium level unremarkable. TSH unremarkable. BNP elevated at 1327. Patient is in mild CHF exacerbation. Troponin unremarkable x 2. CTA chest negative for PE. Patient has mild cardiomegaly as well as interstitial pulmonary edema and trace pleural effusions. She has multiple micronodules in the lungs as well as a 2.5 cm left breast calcification and mild mediastinal lymphadenopathy which will all need to be further worked up outpatient. Patient symptoms are likely secondary to mild CHF exacerbation. Patient is not requiring oxygen. Upon talking to the patient, she states she takes spironolactone daily but that she was taking Lasix as needed she was taken off of Lasix due to increase in creatinine. Patient's creatinine is currently normal and therefore IV Lasix ordered. Patient follows with cardiology and therefore they were consulted. I spoke to Dr. Clifton. He agrees to continue Lasix for a couple days with follow-up in their office for mild CHF exacerbation. She will likely need a repeat outpatient echocardiogram. Patient and were updated of all the results and the plan. They confirmed understanding. Patient was given strict return precautions. She was given prescription for a short course of Lasix. She was given outpatient BMP to have creatinine monitored. Follow-up with cardiology. She confirmed understanding the plan. Patient stable to discharge home. She was ambulated prior to discharge without hypoxia. EKG: Interpreted by me/EM physician: EKG shows atrial fibrillation without any acute ischemic changes. Heart rate 62. Diagnostic: Interpreted by me/EM physician: Chest x-ray with cardiomegaly and vascular congestion Impression: 1. CHF exacerbation, mild 2. Paroxysmal atrial fibrillation Lab Data Labs: Laboratory Results - last 24 hr 01/31/25 01/31/25 11:30 13:30 WBC 5.6 RBC 4.14 L Hgb 12.5 Hct 38.4 MCV 92.8 MCH 30.2 MCHC 32.6 RDW Std Deviation 46.9 H RDW Coeff of Yazan 13.8 Plt Count 235 MPV 10.5 Immature Gran % (Auto) 0.500 Neut % (Auto) 68.5 Lymph % (Auto) 20.4 [place] % (Auto) 8.5 Eos % (Auto) 1.2 Baso % (Auto) 0.9 Absolute Neuts (auto) 3.9 Absolute Lymphs (auto) 1.15 Nucleated RBC % 0 PT 15.7 H INR 1.2 APTT 31.1 D-Dimer Quant (PE/DVT) 1.34 H* Sodium 139 Potassium 4.0 Chloride 103 Carbon Dioxide 24.5 Anion Gap 11 BUN 21 H Creatinine 0.88 Estim Creat Clear Calc 58.95 Est GFR (MDRD) Non-Af 69 BUN/Creatinine Ratio 23.3 H Glucose 113 H Calcium 9.5 Magnesium 2.2 Troponin T High Sens 13 Troponin T Hi Sens 2 Hr 11 NT pro BNP II 1327 H TSH 0.567 Radiography Diagnostic Testing: Clinical Impression(s) from Imaging Studies Chest X-Ray 01/31/25 11:42 IMPRESSION: Mild cardiomegaly. Vascular congestion and mild CHF. Reading Location: [id number] Chest CTA 01/31/25 13:15 IMPRESSION: 1. Slightly limited exam as above. No visible or definite/central pulmonary embolism. 2. Mild cardiomegaly, likely interstitial pulmonary edema, trace pleural effusions, and findings suggestive of RIGHT heart dysfunction. 3. Innumerable scattered ill-defined micronodules up to 5 mm are nonspecific but may be infectious/inflammatory. Nodules of this size are statistically benign and require no specific follow-up in a low risk patient. Otherwise, recommend follow-up CT chest in one year per the Fleischner society recommendations for pulmonary nodule follow-up, presuming no history of malignancy or known immunosuppression. 4. 2.4 cm lesion in the LEFT breast with punctate calcification versus biopsy marker. This is not well evaluated by CT. Correlate with medical history and recommend dedicated mammographic evaluation, unless previously performed. 5. Mild mediastinal lymphadenopathy, nonspecific and potentially reactive in the absence of known malignancy. Correlate with medical history and follow-up as indicated. 6. Additional description as above. Reading Location: [facility] Discharge Plan Triage Chief Complaint: Chest Pain ED Provider: Mario Hilliard Dx/Rx/DC Orders Clinical Impression: CHF (congestive heart failure) Instructions: ED Heart Failure, Congestive (CHF) Prescriptions: New furosemide 20 mg tablet 20 mg PO DAILY 3 Days Qty: 3 0RF Discontinued furosemide 40 mg tablet 40 mg PO Q OTHER DAY PRN (Reason: edema) Qty: 90 3RF No Action escitalopram oxalate 20 mg tablet 20 mg PO DAILY Patient Comments: TAKE 1 TABLET BY MOUTH ONCE DAILY spironolactone 25 mg tablet 25 mg PO DAILY apixaban 5 mg tablet 5 mg PO BID diltiazem HCl 120 mg capsule,extended release 24 hr 120 mg PO DAILY Qty: 90 3RF losartan 100 mg tablet 100 mg PO DAILY Qty: 90 3RF levothyroxine 88 mcg tablet 88 mcg PO DAILY Qty: 90 1RF Other Ambulatory Orders: Basic Metabolic Profile (BMP) (Routine) Timeframe: 3 Days Facility: [facility] - Location: Laboratory Ordered By: Dr. Mario Hilliard Primary Care Provider: Avtar Chowdary Referrals: Elsy Witt MD [Med Staff - Active Staff] - 3-5 Days Avtar Chowdary MD [Primary Care Provider] - 3-5 Days Activity Restrictions/Additional Instructions: Continue all of your home medicines. Take the furosemide that was prescribed to you for the next 3 days. You will need to have repeat BMP. The order provided to you. Return back to the ED if symptoms change or worsen. 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 Your CT chest showed small nodules in your lungs. You will need to have this monitored outpatient with repeat CT chest. There is also a 2. 4 cm lesion in the left breast this will need to be further worked up outpatient with a mammogram. You had nonspecific lymphadenopathy in your chest as well that needs to be worked up outpatient. Follow-up with your primary care physician for all of these results. Print Language: [place] Disposition Disposition: Home, Self Care Discharge Date/Time: 01/31/25 15:01
[2025-01-31 12:03] LABS: Absolute Lymphocyte Count 1.15 X10^3/uL (0.83-4.51); Absolute Neutrophil Count 3.9 X10^3/uL (2.0-7.7); Basophil# 0.05 X10^3/uL; Basophil% 0.9 % (0-1); Eosinophil# 0.07 X10^3/uL; Eosinophils% 1.2 % (0-5); Hematocrit 38.4 % (37-47); Hemoglobin 12.5 g/dL (12.0-15.0); Lymphocyte # 1.15 X10^3/ul (0.83-4.51); Lymphocyte % 20.4 % (19-41); Mean Corp Hgb Conc 32.6 g/dL (32-36); Mean Corpuscular Hgb 30.2 pg (27.0-32.0); Mean Corpuscular Volume 92.8 fL (81-99); Mean Platelet Vol. 10.5 fl (6.2-12.0); Monocyte# 0.48 X10^3/uL; Monocyte% 8.5 % (0-10); NRBC Flagged by Analyzer 0 % (0-5); Neutrophil # 3.86 X10^3/uL (2.7-7.7); Neutrophil % 68.5 % (47-70); Platelet Count 235 K/mm3 (150-450); RBC Distribution Width CV 13.8 % (11.6-14.6); RBC Distribution Width SD 46.9 fl (35.1-43.9); Red Blood Count 4.14 M/mm3 (4.2-5.4); White Blood Count 5.6 K/mm3 (4.4-11.0)
[2025-01-31 12:05] LABS: Partial Thromboplast Time 31.1 Seconds (24.1-36.2)
[2025-01-31 12:08] LABS: International Normalized Ratio 1.2
[2025-01-31] MEDS: Aspirin 81 MG TAB.CHEW 324 MG PO (12:14)
[2025-01-31 12:19] LABS: D-Dimer Quantitative (DVT/PE) 1.34 FEU/ug/m (0.27-0.49)
[2025-01-31 12:20] LABS: Prothrombin Time (Protime)PT. 15.7 SECONDS (11.7-14.9)
[2025-01-31 12:27] LABS: Anion Gap 11 (5-15); BUN 21 mg/dL (4-19); BUN/Creat Ratio 23.3 RATIO (10-20); Calcium,Total 9.5 mg/dL (7.6-11.0); Carbon Dioxide 24.5 mmol/L (21.0-32.0); Chloride 103 mmol/L (98-108); Creatinine, Serum 0.88 mg/dL (0.70-1.20); EST Glomerular Filtration Rate 69 (>60); Estimated Creatinine Clearance 58.95 ml/min (50-250); Glucose 113 mg/dL (70-99); Magnesium 2.2 mg/dL (1.5-2.2); Pro- Brain NATRIURETIC PEPTIDE 1327 pg/mL (<=900); Sodium Level 139 mmol/L (133-145); Thyroid Stim Hormone (TSH) 0.567 uIU/mL (0.300-4.200); Troponin T High Sensitivity 13 ng/L (<=14)
--- NOTE | 2025-01-31 13:15 | CT_ITS ---
PROCEDURE: CTA CHEST W/WO CONTRAST (CTCTACHWW), 01/31/2025 REASON FOR EXAM: PE TECHNIQUE: CTA chest was performed with IV contrast. Multiplanar reformats and MIP reconstructions were generated. CONTRAST: Isovue 370 VOLUME: 100mL RADIATION DOSE SUMMARY: CTDlvol: 15.73 mGy DLP: 501.46 mGycm One or more dose reduction techniques were used (e.g., Automated exposure control, adjustment of the mA and/or kV according to patient size, use of iterative reconstruction technique). COMPARISON: No prior CT or CTA chest FINDINGS: Overall mild motion limitation, slightly limiting sensitivity for peripheral pulmonary embolism. Note the exam is additionally slightly limited by generalized photon starvation. Examined additionally limited by poor inspiratory effort. Heart/pericardium: Mild cardiomegaly with relative enlargement of the atria. As well as the RIGHT ventricle. Mild/moderate but three-vessel coronary atherosclerosis and/or stents. Trace aortic annular calcification. Aorta: Atherosclerosis. Pulmonary arteries: Normal in caliber. No central/definite pulmonary embolism is identified. Lymph nodes: Mildly prominent but not pathologically enlarged RIGHT hilar node, 12 mm short axis. Distal LEFT paratracheal node, difficult to delineate, roughly 14 mm short axis. Lungs/pleura: Interlobular septal thickening. Innumerable scattered ill-defined micro nodules throughout, best depicted on MIP images. Discrete nodules up to 4 x 5 mm (for example, series 2, image 130 and 112). Trace patchy ground-glass may be related to hypoinflation. Trace layering pleural fluid posteriorly, probably barely above physiologic quantity. Airways: Expiratory appearance of the trachea. Calcifications of the tracheobronchial tree. Chest wall: 2.4 cm lesion in the LEFT breast with punctate calcification versus biopsy marker. Upper abdomen: Small hiatal hernia. Reflux of contrast into the IVC and hepatic veins, suggesting RIGHT heart dysfunction.. Musculoskeletal: Mild spondylosis.. CT/CTA Chest W/WO Contrast IMPRESSION: 1. Slightly limited exam as above. No visible or definite/central pulmonary em bolism. 2. Mild cardiomegaly, likely interstitial pulmonary edema, trace pleural effusi ons, and findings suggestive of RIGHT heart dysfunction. 3. Innumerable scattered ill-defined micronodules up to 5 mm are nonspecific bu t may be infectious/inflammatory. Nodules of this size are statistically benign and require no specific follow-up in a low risk p atient. Otherwise, recommend follow-up CT chest in one year per the Fleischner society recommendations for pulmonary nodule fol low-up, presuming no history of malignancy or known immunosuppression. 4. 2.4 cm lesion in the LEFT breast with punctate calcification versus biopsy m ritchie. This is not well evaluated by CT. Correlate with medical history and recommend dedicated mammographic evaluation, unless previously performed. 5. Mild mediastinal lymphadenopathy, nonspecific and potentially reactive in th e absence of known malignancy. Correlate with medical history and follow-up as indicated. 6. Additional description as above. Reading Location: [id number]
[2025-01-31 14:21] LABS: Troponin T High Sens 2 HR 11 ng/L (<=14)
[2025-01-31] MEDS: Furosemide 40 MG/4 ML Vial IV (14:37)
== END 2025-01-31 15:01 | disposition home or self-care (01) ==
PROVIDERS: Emergency Provider Surgery; PCP Family Medicine; Visit Provider Surgery
DX: I11.0 Hypertensive heart disease with heart failure (principal); I50.32 Chronic diastolic (congestive) heart failure; I48.0 Paroxysmal atrial fibrillation; R59.0 Localized enlarged lymph nodes; E78.5 Hyperlipidemia, unspecified; J90 Pleural effusion, not elsewhere classified; Z79.01 Long term (current) use of anticoagulants; K21.9 Gastro-esophageal reflux disease without esophagitis; Z79.899 Other long term (current) drug therapy; J81.1 Chronic pulmonary edema; R91.8 Other nonspecific abnormal finding of lung field; R92.1 Mammographic calcification found on diagnostic imaging of breast
CPT/HCPCS: 71046; 71275; 80048; 83735; 83880; 84443; 84484; 85025; 85379; 85610; 85730; 93005; 96374; 99284; A4216; J1940